=== PATIENT | male | born 1935 | race Caucasian/White ===

== ENCOUNTER 2022-01-25 12:18 | Observation (INO) | payer OTHER ==
--- OUTSIDE RECORDS SUMMARY | 2022-01-25 12:46 | XMS REPORT | Continuity of Care Document ---
:1935 Author Organization [facility] t Address [address] [place] [address] Care Team Providers Name Role Phone Chris Malloy MD, Gordy Primary Care Physician [phone] ZHAO MANCINI Attending Clinician Unavailable Payers Payer Name Policy Type Policy Number Effective Date Expiration Date S mario [employer] MEDICARE ADV [id number] 2018 00:00:00 MEDICARE PART A [id number] 2018 \T\ B 00:00:00 Problems Condition Condition Condition Status Onset Resolution Last Treating Co mments Source Name Details Category Date Date Treatment Clinician Date Follow-up Follow-up Disease Active Met hodi exam exam 07-25 00:00: Hospita 00 l Essential Essential Disease Active Met hodi hypertensi hypertensi 07-25 on on 00:00: Hospita 00 l 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 07-25 mellitus mellitus 00:00: Hospit a without without 00 l complicati complicati on on 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 07-25 emia emia 00:00: Hospita 00 l Acquired Acquired Disease Active Metho di hypothyroi hypothyroi 07-25 dism dism 00:00: Hospita 00 l 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, disease, - [facility]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 [facility] Benign Benign Problem Active Common hypertensi hypertensi Sp devorah on on - [facility] Hypothyroi Hypothyroi Problem Active C ommon dism dism Spirit - [facility] 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 - [facility] Obstructiv Obstructiv Problem Active C ommon e sleep e sleep Spirit apnea apnea - [facility] 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 - [facility] with other with other St specified specified Luke s complicati complicati Me dical on on Center 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 - [facility] with with St diarrhea diarrhea [facility] Medicare Medicare Diagnosis Active Com mon annual annual Spirit wellness wellness - [facility] visit, visit, St subsequent [facility] Allergies, Adverse Reactions, Alerts Allergy Allergy Status Severity Reaction(s) Onset Inactive Treating Comm ents Source Name Type Date Date Clinician PENICILL Drug Active High ITCHING Univers INS Class 1-12 ity of 00[facility]: [place] [facility] Penicill Propensi Active Rash Method i ins ty to 12 st adverse 00:00: Hospita reaction 00 l s to drug Family History Family Member Diagnosis Comments Start Date Stop Date Source Natural father Diabetes [facility] Natural father Lung cancer [facility] mother Heart attack [facility] Social History Social Habit Start Date Stop Date Quantity Comments Source Alcohol intake 2016-12-25 2016-12-25 Current [facility] 00:00:00 00:00:00 non-drinker of Hospital alcohol (finding) Cigarettes smoked 2016-07-13 2016-07-13 [facility] current (pack per 00:00:00 00:00:00 Hospita l day) - Reported History of tobacco 1989-07-13 Current smoker Me [facility]odist use 00:00:00 [facility] Sex Assigned At [birth year] [facility] 00:00:00 00:00:00 Hospital Smoking Status Start Date Stop Date Source Ex-smoker 2016-07-13 00:00:00 2016-07-13 00:00:00 [facility] Medications Ordered Filled Start Stop Current Ordering Indication Dosage Frequency Signature Comments Components Source Medication Medication Date Date Medication? Clinician (SIG) Name Name Janaotddcristian Janasomra Yes Goldy 1 tablet Common 09-27 Marlon at bedtime Spirit 00:00: as needed - [facility] AMILoride 2016-03 Yes 5mg QD Take 5 mg Met hodi (MIDAMOR) 5 0-[address] MG tablet 11:03: daily. Hospit a 44 l furosemide Yes TAKE 1 Metho di (LASIX) 20 6-[address] mg tablet 00:00: MOUTH Hospita 00 EVERY DAY l NEEDED FOR EDEMA calcitriol Yes .25ug Q.5W Take 0.25 M ethodi (ROCALTROL) 4-[address] 0.25 MCG 13:34: mouth 2 Hospit a capsule 44 (two) l times a week. simvastatin Yes 20mg QD Take 20 mg Methodi (ZOCOR) 20 4-[address] MG tablet 13:34: nightly. Hosp laura 44 l omega-3 Yes 1g Q.5D Take 1 g Method i acid ethyl 4-[address] esters 13:34: (two) Hospita (LOVAZA) 1 44 times a l gram day. capsule aspirin Yes 81mg Q.5W Take 81 mg Meth shanta (ECOTRIN) 4-[address] 81 MG 13:34: (two) Hospita enteric 44 times a l coated week. tablet cyanocobala Yes 1000ug QD Take 1,000 Methodi min 1000 4-[address] MCG tablet 13:34: mouth Hospit a 44 daily. l vitamin E Yes 400U QD Take 400 Meth shanta 400 UNIT 4-[address] capsule 13:34: mouth Hospita 44 daily. l cholecalcif Yes QD Take by Met massiel rosenthal, 3-[address] vitamin D3, 00:00: daily. Hosp laura (VITAMIN 00 l D3) 5,000 unit capsule BUMETanide 2015-03 Yes 1mg QD Take 1 mg Me thodi (BUMEX) 1 2-[address] MG tablet 00:00: once Hospita 00 daily. l Namzaric Namzaric Yes Goldy 1 capsule Common Marlon in the [facility] evening [facility] Simvastatin Simvastatin Yes Goldy 1 tablet Common Marlon in the [facility] evening [facility] Fluticasone Fluticasone Yes Goldy 1 spray in Common Propionate Propionate Marlon each Sp devorah nostril - [facility] Indomethaci Indomethaci Yes Goldy TAKE ONE Common n n Marlon CAPSULE BY Spirit MOUTH - [facility] TWICE A [facility] PAIN WITH Center FOOD Trintellix Trintellix Yes Goldy 1 tablet Common Marlon [facility] Claritin-D Claritin-D Yes Goldy 1 tablet Common 12 Hour 12 Hour Marlon as needed [facility] rit - [facility] Levothyroxi Levothyroxi Yes Goldy 1 tablet Common ne Sodium ne Sodium Marlon on an Spi rit empty - CHI stomach in [facility] Vitamin D3 Vitamin D3 Yes Goldy 1 capsule Common Marlon [facility] Melatonin Melatonin Yes Goldy 1 tablet Common Marlon at bedtime [facility] as needed - CHI with food [facility] Aspirin Aspirin Yes Goldy 1 tablet Com mon Adult Low Adult Low Marlon Spir it Dose Dose - [facility] Bumetanide Bumetanide Yes Goldy not C ommon Marlon defined [facility] [place] 3 Yes Goldy 1 capsule Co mmon Marlon [facility] Lopressor Lopressor Yes Goldy 1 tablet Common Marlon with food [facility] Donepezil Donepezil Yes Goldy 1 tablet Common HCl HCl Marlon at bedtime [facility] Pioglitazon Pioglitazon Yes Goldy 1 tablet Common e HCl e HCl Marlon [facility] Calcitriol Calcitriol Yes Goldy TAKE ONE Common Marlon CAPSULE BY Spirit MOUTH - CHI EVERY DAY [facility] Vitamin E Vitamin E Yes Goldy 1 tablet Common Marlon [facility] coracedin coracedin Yes Goldy not Com mon hpb hpb Marlon defined [facility] Liothyronin Liothyronin Yes Goldy 1/2 tablet Common e Sodium e Sodium Marlon on an Spiri t empty - [facility]I stomach [facility] Flonase Flonase Yes Goldy 1 spray in C ommon Marlon each [facility] nostril - [facility] Vitamin Vitamin Yes Goldy 1 tablet Com mon B-12 B-12 Marlon [facility] Procedures This patient has no known procedures. Plan of Care Planned Activity Planned Date Details Comments Source Future Scheduled 2021-11-23 HEPATITIS B VACCINES Met [facility] Test 13:52:40 (1 of 3 - 3-dose series) [code = HEPATITIS B VACCINES (1 of 3 - 3-dose series)] Future Scheduled 2021-11-23 COVID-19 VACCINE (#1) [facility] Test 13:52:40 [code = COVID-19 VACCINE (#1)] Future Scheduled 2021-11-23 SHINGLES VACCINES (1 Met [facility] Test 13:52:40 of 2) [code = SHINGLES VACCINES (1 of 2)] Future Scheduled 2021-11-23 65+ PNEUMOCOCCAL Methodi [facility] Test 13:52:40 VACCINE (1 - PCV) [code = 65+ PNEUMOCOCCAL VACCINE (1 - PCV)] Future Scheduled 2021-11-23 INFLUENZA VACCINE Method [facility] Test 13:52:40 [code = INFLUENZA VACCINE] Encounters Start End Encounter Admission Attending Care Care Encounter Source Date/Time Date/Time Type Type Clinicians Facility Department ID 2019-12-28 2019-12-28 Outpatient Swetha MANCINI [facility] [id number] Univers 15:15:00 15:15:00 ZHAO [facility] 2018-11-25 2018-11-25 Outpatient Fabian Peraltat [id number] Common 15:15:00 15:15:00 [facility] 2018-05-26 2018-05-26 [facility] [id number] Common 10:00:00 10:00:00 [facility] 2018-03-27 2018-03-27 [facility] [id number] Common 10:00:00 10:00:00 [facility] 2017-12-24 2017-12-24 [facility] [id number] Common 10:15:00 10:15:00 [facility] 2017-11-26 2017-11-26 [facility] [id number] Common 16:07:00 16:07:[address] [facility] 2017-09-27 2017-09-27 [facility] [id number] Common 15:03:00 15:03:[address] [facility] 2017-09-27 2017-09-27 [facility] [id number] Common 12:09:00 12:09:[address] [facility] 2017-09-23 2017-09-23 [facility] [id number] Common 10:30:00 10:30:[address] [facility] 2017-08-14 2017-08-14 [facility] [id number] Common 13:15:00 13:15:[address] [facility] Results This patient has no known results.
--- NOTE | 2022-01-25 13:54 | RAD REPORT ---
EXAM DESCRIPTION: CT - Head C Spine Cap Wo Con - 01/25/2022 1:36 pm CLINICAL HISTORY: Trauma, head and neck injury. Chest, abdomen and pelvis pain. fall COMPARISON: No comparisons TECHNIQUE: CT head without contrast. CT cervical spine without contrast with coronal and sagittal reformatted images. CT chest, abdomen and pelvis without contrast with coronal and sagittal reformatted images of the [facility] ne. All CT scans are performed using dose optimization technique as appropriate and may include automated exposure control or mA/KV adjustment according to patient size. FINDINGS: CT HEAD WITHOUT CONTRAST: No intracranial hemorrhage, hydrocephalus or extra-axial fluid collection. Moderate generalized brain atrophy. No areas of brain edema or midline shift. The paranasal sinuses and mastoids are clear. The calvarium is intact. CT CERVICAL SPINE WITHOUT CONTRAST: No fracture or subluxation. Fusion of C6 and [address] noted. The prevertebral soft ti ssues are normal in thickness. CT CHEST, ABDOMEN, PELVIS WITHOUT CONTRAST: NOTE: Lack of contrast is a significant limitation in the assessment of trauma related findings. Spec ifically, solid organ, vascular and bowel evaluation is significantly limited. Mildly emphysematous lung kwon.No pneumothorax or pericardial/pleural fluid. No evidence of intra-abdominal visceral injury, free fluid or free air is seen within the above detai led limitations. Cholecystectomy. No concerning pelvic findings. No fractures. Moderate lumbar degenerative changes. IMPRESSION: Negative for acute traumatic findings within the above detailed limitations.
--- NOTE | 2022-01-25 14:19 | RAD REPORT ---
EXAM DESCRIPTION: RAD - Chest Single View - 01/25/2022 2:12 pm CLINICAL HISTORY: COUGH Chest pain. COMPARISON: Chest Single View dated 08/30/2016; CHEST PA AND LAT 2 VIEW dated 04/20/2010; CHEST PA AND LAT 2 VIEW dated 10/08/2002; Head C Spine Cap Wo Con dated 01/25/2022 FINDINGS: Portable technique limits examination quality. The lungs are emphysematous but grossly clear. The heart is normal in size. No displaced fractures. IMPRESSION: No acute intrathoracic process suspected.
[2022-01-25 14:25] LABS: Absolute Lymphocytes (CBC) 1.8 K/uL (0.7-4.9); Hematocrit 31.7 % (39.6-49.0); Lymphocytes % 21.3 % (15.3-44.8); MCV 89.4 fL (80-100); MPV 7.6 fL (7.6-11.3); RBC Red Blood Cell Count 3.54 M/uL (4.33-5.43)
[2022-01-25 14:29] LABS: Protime INR 1.09
[2022-01-25] MEDS ORDERED: METRONIDAZOLE 500mg IVPB 500 MG/100 ML BAG IV ONE (14:38)
[2022-01-25] MEDS ORDERED: CIPROFLOXACIN 400mg IV 400 MG/200 ML BAG IV ONE (14:38)
[2022-01-25] MEDS ORDERED: NA CHLORIDE 0.9% 1,000 ML ONE (14:38)
[2022-01-25 14:42] LABS: SARS-CoV-2 Antigen Rapid Res Negative (Negative)
[2022-01-25 14:47] LABS: Albumin 3.1 g/dL (3.4-5.0); Bilirubin Direct 0.2 mg/dL (0-0.2); Bilirubin Total 0.6 mg/dL (0.2-1.0); Magnesium 1.6 mg/dL (1.8-2.4); Potassium 4.4 mmol/L (3.5-5.1); Protein, Total 6.7 g/dL (6.4-8.2)
[2022-01-25 14:50] LABS: Troponin High Sensitivity 79.3 pg/mL (<58.9)
--- NOTE | 2022-01-25 15:02 | ER ---
Nurse's Notes [facility] Name: Wayne Arredondo Age: 86 yrs Sex: Male : 1935 Arrival Date: 01/25/2022 Time: 12:20 Bed 20 Private MD: Gordy Perez E Diagnosis: Weakness;Anemia, unspecified;GI Bleed/ Gastrointestinal hemorrhage, unspecified-lower, stable;Hypomagnesemia;Abnormal serum enzyme level, unspecified-elevated troponin Presentation: 01/25 12:32 Chief complaint: Patient states: bloody stools x1 month, treated by doctor for GI Bleed 5 and it's not helping. Pt is confused, falling a lot, anemic. Coronavirus screen: Vaccine status: Patient reports receiving the 2nd dose of the covid vaccine. Client denies travel out of the [place] in the last 14 days. Ebola Screen: Patient negative for fever greater than or equal to 101.5 degrees Fahrenheit, and additional compatible Ebola Virus Disease symptoms Patient denies exposure to infectious person. Patient denies travel to an Ebola-affected area in the 21 days before illness onset. Initial Sepsis Screen: Does the patient meet any 2 criteria? No. Patient's initial sepsis screen is negative. Does the patient have a suspected source of infection? No. Patient's initial sepsis screen is negative. Risk Assessment: Do you want to hurt yourself or someone else? Patient reports no desire to harm self or others. Onset of symptoms was November 2021. 12:32 Method Of Arrival: Wheelchair [facility] 12:32 Acuity: JON 2 5 Triage Assessment: 12:35 General: Appears in no apparent distress. uncomfortable, slender, well groomed, [facility] Behavior is calm, cooperative, appropriate for age. Pain: Denies pain. GI: Reports diarrhea, bloody stool. Historical: - Allergies: 12:35 PENICILLINS; jh5 - PMHx: 12:35 Alzheimer's disease; Diabetes mellitus; Hypertensive disorder; thyroid disease; jh5 - Immunization history:: Adult Immunizations up to date. - Social history:: Smoking status: Patient denies any tobacco usage or history of. Screenin:01 Abuse screen: Denies threats or abuse. Nutritional screening: No deficits noted. tw2 Tuberculosis screening: No symptoms or risk factors identified. Fall Risk Secondary diagnosis (15 points) Alzheimer's, impaired mobility. Assessment: 14:08 Reassessment: Dr. Stephens at bedside at this time. tw2 16:30 Reassessment: Patient appears in no apparent distress at this time. No changes from tw2 previously documented assessment. Patient and/or family updated on plan of care and expected duration. Pain level reassessed. Patient is alert, oriented x 3, equal unlabored respirations, skin warm/dry/pink. 16:36 Reassessment: PTS Medical Caregiver Chantale suarez#[phone]. tw2 17:40 Reassessment: hospitalist Dr. Flower at bedside at this time. tw2 17:41 Reassessment: Patient appears in no apparent distress at this time. No changes from tw2 previously documented assessment. Patient and/or family updated on plan of care and expected duration. Pain level reassessed. Patient is alert, oriented x 3, equal unlabored respirations, skin warm/dry/pink. 18:11 Reassessment: pt given 10 mg Melatonin PO per Dr. Flower. unable to chart in [employer]. tw2 nursing note made. 20:18 Reassessment: report called to Mariana GILLESPIE for room 431. Vital Signs: 12:32 Pulse 103; Resp 18; Temp 98.6; Pulse Ox 100% ; Weight 64.41 kg; Height 5 ft. 9 in. [facility] (175.26 cm); 14:32 BP 158 / 69; Pulse 50; Resp 17; Pulse Ox 100% on R/A; tw2 15:30 BP 164 / 71; Pulse 56; Resp 17; Pulse Ox 100% on R/A; tw2 16:15 BP 171 / 61; Pulse 56; Resp 17; Pulse Ox 99% on R/A; tw2 17:41 BP 153 / 64; Pulse 57; Resp 17; Pulse Ox 100% on R/A; tw2 12:32 Body Mass Index 20.97 (64.41 kg, 175.26 cm) [facility] ED Course: 12:20 Patient arrived in ED. mr 12:21 Gordy Perez MD is Private Physician. mr 12:35 Triage completed. [facility] 12:35 Arm band placed on right wrist. [facility] 12:38 Bed in low position. Call light in reach. Side rails up X2. Adult w/ patient. tw2 12:47 Phillip Stephens MD is Attending Physician. zeina 13:29 Millicent Vasquez, RN is Primary Nurse. tw2 13:38 CT Traumagram (Head C Spine CAP wo con) In Process Unspecified. EDMS 14:14 XRAY Chest (1 view) In Process Unspecified. EDMS 14:20 Inserted saline lock: 22 gauge in left forearm, using aseptic technique. Blood jd3 collected. 15:00 Anayeli Flower MD is Hospitalizing Provider. zeina 21:12 No provider procedures requiring assistance completed. Patient admitted, IV remains in ha1 place. Administered Medications: 14:48 Drug: Flagyl (metroNIDAZOLE) 500 mg Volume: 100 ml; Route: IVPB; Rate: 200 ml/hr; tw2 Infused Over: 30 mins; Site: right antecubital; 15:20 Follow up: Response: No adverse reaction; IV Status: Completed infusion; IV Intake: tw2 100ml 14:48 Drug: NS 0.9% 1000 ml Route: IV; Rate: 125 ml/hr; Site: right antecubital; tw2 15:50 Drug: Cipro (ciprofloxacin) 400 mg Volume: 200 ml; Route: IVPB; Infused Over: 60 mins; tw2 Site: right antecubital; 17:01 Follow up: Response: No adverse reaction; IV Status: Completed infusion; IV Intake: tw2 200ml 16:53 Drug: Magnesium Sulfate 1 grams Route: IVPB; Infused Over: 1 hrs; Site: right tw2 antecubital; 17:53 Follow up: IV Status: Completed infusion; IV Intake: 100ml tw2 Medication: 14:01 VIS not applicable for this client. tw2 Intake: 15:20 IV: 100ml; Total: 100ml. tw2 17:01 IV: 200ml; Total: 300ml. tw2 17:53 IV: 100ml; Total: 400ml. tw2 Outcome: 15:02 Decision to Hospitalize by Provider. zeina 21:12 Admitted to Med/surg accompanied by tech, family with patient, via wheelchair, room 431.ha1 21:12 Discharge instructions given to patient, family, Instructed on the need for admit, Demonstrated understanding of instructions. 21:13 Condition: stable ha1 21:14 Patient left the ED. ha1 Signatures: Dispatcher [employer] EDPhillip Teresa MD MD cha Rivera Balbina mr Tyson, Luiza, RN RN bb Millicent Vasquez, RN RN tw2 Collin Laureano, RN RN jd3 Erika Everett, RN RN jh5 Savannah Torres, RN RN ha1
--- NOTE | 2022-01-25 15:02 | EDPHYS ---
Physician Documentation [facility] Name: Wayne Arredondo Age: 86 yrs Sex: Male : 1935 Arrival Date: 01/25/2022 Time: 12:20 Bed 20 Private MD: Gordy Perez E ED Physician Phillip Stephens HPI: 01/25 14:11 This 86 yrs old Male presents to ER via Wheelchair with complaints of zeina Confusion, Bloody Stools, Fall Injury. 14:11 Details of fall: The patient fell from an upright position, while standing. Onset: The zeina symptoms/episode began/occurred 1 day(s) ago. Associated injuries: The patient sustained no obvious injury. Historical: - Allergies: 12:35 PENICILLINS; jh5 - PMHx: 12:35 Alzheimer's disease; Diabetes mellitus; Hypertensive disorder; thyroid disease; jh5 - Immunization history:: Adult Immunizations up to date. - Social history:: Smoking status: Patient denies any tobacco usage or history of. ROS: 14:12 Constitutional: Negative for fever, chills, and weight loss, Eyes: Negative for injury, zeina pain, redness, and discharge, ENT: Negative for injury, pain, and discharge, Neck: Negative for injury, pain, and swelling, Cardiovascular: Negative for chest pain, palpitations, and edema, Respiratory: Negative for shortness of breath, cough, wheezing, and pleuritic chest pain, Back: Negative for injury and pain, : Negative for injury, bleeding, discharge, and swelling, MS/Extremity: Negative for injury and deformity, Skin: Negative for injury, rash, and discoloration, Neuro: Negative for headache, weakness, numbness, tingling, and seizure, Psych: Negative for depression, anxiety, suicide ideation, homicidal ideation, and hallucinations, Allergy/Immunology: Negative for hives, rash, and allergies, Endocrine: Negative for neck swelling, polydipsia, polyuria, polyphagia, and marked weight changes, Hematologic/Lymphatic: Negative for swollen nodes, abnormal bleeding, and unusual bruising. 14:12 Abdomen/GI: Positive for rectal bleeding. Exam: 14:12 Constitutional: This is a well developed, well nourished patient who is awake, alert, zeina and in no acute distress. Head/Face: Normocephalic, atraumatic. Eyes: Pupils equal round and reactive to light, extra-ocular motions intact. Lids and lashes normal. Conjunctiva and sclera are non-icteric and not injected. Cornea within normal limits. Periorbital areas with no swelling, redness, or edema. ENT: Nares patent. No nasal discharge, no septal abnormalities noted. Tympanic membranes are normal and external auditory canals are clear. Oropharynx with no redness, swelling, or masses, exudates, or evidence of obstruction, uvula midline. Mucous membranes moist. Neck: Trachea midline, no thyromegaly or masses palpated, and no cervical lymphadenopathy. Supple, full range of motion without nuchal rigidity, or vertebral point tenderness. No Meningismus. Chest/axilla: Normal chest wall appearance and motion. Nontender with no deformity. No lesions are appreciated. Cardiovascular: Regular rate and rhythm with a normal S1 and S2. No gallops, murmurs, or rubs. Normal PMI, no JVD. No pulse deficits. Respiratory: Lungs have equal breath sounds bilaterally, clear to auscultation and percussion. No rales, rhonchi or wheezes noted. No increased work of breathing, no retractions or nasal flaring. Abdomen/GI: Soft, non-tender, with normal bowel sounds. No distension or tympany. No guarding or rebound. No evidence of tenderness throughout. Back: No spinal tenderness. No costovertebral tenderness. Full range of motion. Male : Normal genitalia with no discharge or lesions. MS/ Extremity: Pulses equal, no cyanosis. Neurovascular intact. Full, normal range of motion. Neuro: Awake and alert, GCS 15, oriented to person, place, time, and situation. Cranial nerves II-XII grossly intact. Motor strength 5/5 in all extremities. Sensory grossly intact. Cerebellar exam normal. Normal gait. Psych: Awake, alert, with orientation to person, place and time. Behavior, mood, and affect are within normal limits. 14:12 Abdomen/GI: Inspection: abdomen appears normal, Bowel sounds: normal, in all quadrants, Palpation: abdomen is soft and non-tender, Rectal exam: is unremarkable, Prostate: normal, rectal tone normal, Stool: normal, hemorrhoid(s), are not appreciated, mass, is not appreciated, swelling, is not appreciated, tenderness, is not appreciated, Liver: no appreciated palpable abnormalities, Hernia: not appreciated. 14:12 Skin: Appearance: Color: pale. 14:59 ECG was reviewed by the Attending Physician. [facility] Vital Signs: 12:32 Pulse 103; Resp 18; Temp 98.6; Pulse Ox 100% ; Weight 64.41 kg; Height 5 ft. 9 in. 5 (175.26 cm); 14:32 BP 158 / 69; Pulse 50; Resp 17; Pulse Ox 100% on R/A; tw2 15:30 BP 164 / 71; Pulse 56; Resp 17; Pulse Ox 100% on R/A; tw2 16:15 BP 171 / 61; Pulse 56; Resp 17; Pulse Ox 99% on R/A; tw2 17:41 BP 153 / 64; Pulse 57; Resp 17; Pulse Ox 100% on R/A; tw2 12:32 Body Mass Index 20.97 (64.41 kg, 175.26 cm) 5 MDM: 12:47 Patient medically screened. [facility] 14:15 Differential diagnosis: diverticulitis, hemorrhoids, varices. Differential diagnosis: zeina abrasion, closed head injury, contusion, fracture, multiple trauma, sprain, strain. Data reviewed: vital signs, nurses notes, lab test result(s), EKG, radiologic studies, CT scan. 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 Test interpretation: by ED physician or midlevel provider: ECG, plain radiologic studies. Counseling: I had a detailed discussion with the patient and/or guardian regarding: the historical points, exam findings, and any diagnostic results supporting the discharge/admit diagnosis, lab results, radiology results. 01/25 12:57 Order name: Basic Metabolic Panel; Complete Time: 14:58 [facility] 01/25 12:57 Order name: CBC with Diff; Complete Time: 14:58 [facility] 01/25 12:57 Order name: LFT's; Complete Time: 14:58 [facility] 01/25 12:57 Order name: Magnesium; Complete Time: 14:58 [facility] 01/25 12:57 Order name: NT PRO-BNP; Complete Time: 14:58 [facility] 01/25 12:57 Order name: PT-INR; Complete Time: 14:58 [facility] 01/25 12:57 Order name: Troponin HS; Complete Time: 14:58 [facility] 01/25 12:57 Order name: Lipase; Complete Time: 14:58 [facility] 01/25 13:12 Order name: Urine Microscopic Only [facility] 01/25 13:12 Order name: Type And Screen [facility] 01/25 13:13 Order name: SARS RAPID; Complete Time: 14:58 [facility] 01/25 17:15 Order name: Urine Dipstick-Ancillary EDMS 01/25 17:41 Order name: CBC with Automated Diff EDMS 01/25 18:03 Order name: CBC with Automated Diff EDMS 01/25 12:57 Order name: XRAY Chest (1 view); Complete Time: 14:58 [facility] 01/25 12:57 Order name: EKG; Complete Time: 12:58 [facility] 01/25 13:12 Order name: CT Traumagram (Head C Spine CAP wo con); Complete Time: 14:11 [facility] 01/25 18:03 Order name: Heart Healthy EDMS 01/25 18:03 Order name: EKG Electrocardiogram EDMS 01/25 18:03 Order name: EKG Electrocardiogram EDMS 01/25 18:03 Order name: CBC with Automated Diff EDMS 01/25 18:03 Order name: Protime (+INR) EDMS 01/25 18:03 Order name: Protime (+INR) EDMS 01/25 18:03 Order name: PTT, Activated Partial Thromb EDMS 01/25 18:03 Order name: PTT, Activated Partial Thromb EDMS 01/25 20:06 Order name: ABO/RH no charge EDMS 01/25 12:57 Order name: Cardiac monitoring; Complete Time: 14:20 [facility] 01/25 12:57 Order name: EKG - Nurse/Tech; Complete Time: 14:32 [facility] 01/25 12:57 Order name: IV Saline Lock; Complete Time: 14:20 [facility] 01/25 12:57 Order name: Labs collected and sent; Complete Time: 14:20 [facility] 01/25 12:57 Order name: O2 Per Protocol; Complete Time: 14:20 [facility] 01/25 12:57 Order name: O2 Sat Monitoring; Complete Time: 14:20 [facility] 01/25 13:12 Order name: Urine Dipstick-Ancillary (obtain specimen); Complete Time: 17:17 [facility] 01/25 18:03 Order name: EKG Electrocardiogram EDMS 01/25 18:03 Order name: EKG Electrocardiogram EDMS 01/25 18:03 Order name: EKG Electrocardiogram EDMS 01/25 18:03 Order name: EKG Electrocardiogram EDMS 01/25 18:03 Order name: EKG Electrocardiogram EDMS 01/25 18:03 Order name: EKG Electrocardiogram EDMS 01/25 18:03 Order name: EKG Electrocardiogram EDMS 01/25 18:03 Order name: EKG Electrocardiogram EDMS 01/25 18:03 Order name: EKG Electrocardiogram EDMS EC:59 Rate is 54 beats/min. Rhythm is regular. QRS [place] is Normal. [place] interval is normal. QRS zeina interval is normal. QT interval is normal. No Q waves. T waves are Normal. No ST changes noted. Clinical impression: Sinus bradycardia. Interpreted by me. Reviewed by me. Administered Medications: 14:48 Drug: Flagyl (metroNIDAZOLE) 500 mg Volume: 100 ml; Route: IVPB; Rate: 200 ml/hr; tw2 Infused Over: 30 mins; Site: right antecubital; 15:20 Follow up: Response: No adverse reaction; IV Status: Completed infusion; IV Intake: tw2 100ml 14:48 Drug: NS 0.9% 1000 ml Route: IV; Rate: 125 ml/hr; Site: right antecubital; tw2 15:50 Drug: Cipro (ciprofloxacin) 400 mg Volume: 200 ml; Route: IVPB; Infused Over: 60 mins; tw2 Site: right antecubital; 17:01 Follow up: Response: No adverse reaction; IV Status: Completed infusion; IV Intake: tw2 200ml 16:53 Drug: Magnesium Sulfate 1 grams Route: IVPB; Infused Over: 1 hrs; Site: right tw2 antecubital; 17:53 Follow up: IV Status: Completed infusion; IV Intake: 100ml tw2 Disposition Summary: 01/25/22 15:02 Hospitalization Ordered Hospitalization Status: Observation zeina Provider: Anayeli Flower cha Location: Telemetry/MedSurg (observation) zeina Condition: Fair zeina Problem: new zeina Symptoms: have improved zeina Bed/Room Type: Standard zeina Room Assignment: 431(01/25/22 18:28) eb Diagnosis - Weakness zeina - Anemia, unspecified zeina - GI Bleed/ Gastrointestinal hemorrhage, unspecified - lower, stable zeina - Hypomagnesemia zeina - Abnormal serum enzyme level, unspecified - elevated troponin zeina Forms: - Medication Reconciliation Form zeina - SBAR form zeina Signatures: Dispatcher [employer] Phillip Das MD MD cha Wise, Tara RN RN tw2 Maura Laureano Jessica, RN RN jh5 Corrections: (The following items were deleted from the chart) 18:28 15:02 zeina noel
[2022-01-25] MEDS ORDERED: MAGNESIUM SULFATE 1 gm IVPB 1 GM/100 ML BAG IV ONE (16:44)
[2022-01-25 17:15] LABS: Urine Blood Negative (Negative); Urine Glucose Negative (Negative); Urine Protein Negative (Negative); Urine pH 5.5 (5.0-7.0)
[2022-01-25] MEDS ORDERED: ONDANSETRON 4 MG/2 ML VIAL IV PRN (17:59)
[2022-01-25] MEDS ORDERED: MORPHINE 2 MG/ML SYR IV PRN (17:59)
[2022-01-25] MEDS ORDERED: ACETAMINOPHEN 500 MG TAB PO PRN (17:59)
--- NOTE | 2022-01-25 17:59 | P.HP ---
Certification for Inpatient Patient admitted to: Observation With expected LOS: <2 Midnights Patient will require the following post-hospital care: None Practitioner: I am a practitioner with admitting privileges, knowledge of patient current condition, hospital course, and medical plan of care. Services: Services provided to patient in accordance with Admission requirements found in Title 42 Section 412.3 of the Code of Federal Regulations Patient History Date of Service: 01/25/22 Reason for admission: GI bleeding History of Present Illness: Patient is an 86-year-old gentleman with advanced Alzheimer's dementia who comes into the emergency room with lower GI bleeding. Patient apparently has been at home and he had some blood in his stools. His family also states he has been having quite a bit of diarrhea. He just has not been himself and they were concerned with the bleeding so they wanted him observed. Patient's CODE STATUS is DNR. Family does not want any surgical procedures at this time. They wanted to make sure he was in bleeding out so they could observe him. We will watch him overnight and anticipate discharge home in the morning. Otherwise, patient has prior history of renal insufficiency which has improved. Patient also has a history of hypothyroidism. He does have some sundowning and they use melatonin to help with this. We will give him a dose of melatonin at this point. Patient will be admitted for observation. Allergies Penicillins Allergy (Verified 08/29/16 14:21) Itching/Hives/Rash Home Medications: Amiloride HCl 5 mg PO DAILY 08/29/16 Aspirin [Aspir-Low] 81 mg PO BID 08/29/16 Bumetanide [Bumex*] 1 mg PO DAILY 08/29/16 Cholecalciferol (Vitamin D3) [Vitamin D3] 1 cap PO DAILY 08/29/16 Cyanocobalamin [Vitamin B-12*] 2,500 mg PO DAILY 08/29/16 Levothyroxine Sodium [Synthroid] 1 tab PO DAILY 08/29/16 Metoprolol Tartrate [Lopressor*] 50 mg PO DAILY 08/29/16 [place]-3 Fatty Acids [[place]-3] 1 cap PO DAILY 08/29/16 Simvastatin [Zocor*] 20 mg PO BEDTIME 08/29/16 Vitamin E 1 cap PO DAILY 08/29/16 Calcitrol [Rocaltrol*] 0.25 mcg PO DAILY #90 cap 09/01/16 - Past Medical/Surgical History Diabetic: Yes -: Asbestosis -: HTN -: Hypothroidism -: HLD -: NIDDM -: Cataract surgery Bilaterally -: Choley -: Tonsillectomy -: Neck Sx with titanium plate in C-spine -: Right Knee sx -: Heel Spur removal -: Rotator Cuff repair of R shoulder - Family History Father Family History: Reviewed- Non-Contributory - Social History Smoking Status: Former smoker Alcohol use: No CD- Drugs: No Caffeine use: Yes Review of Systems is unable to be obtained Physical Examination - Vital Signs Temperature: 98 F Blood Pressure: 140/80 Pulse: 80 Respirations: 18 Pulse Ox (%): 95 - Physical Exam General: Alert, Demented HEENT: Atraumatic, Normocephalic Neck: Supple Respiratory: Clear to auscultation bilaterally, Normal air movement Cardiovascular: Regular rate/rhythm, Normal S1 S2 Gastrointestinal: Normal bowel sounds, Soft and benign, Non-distended Musculoskeletal: No clubbing, No swelling Integumentary: No rashes Neurological: Normal strength at 5/5 x4 extr, Sensation intact, Cranial nerves 3-12 intact - Studies Laboratory Data (last 24 hrs) 01/25/22 14:14: PT 12.0, INR 1.09 01/25/22 14:14: WBC 8.50, Hgb 10.6 L, Hct 31.7 L, Plt Count 286 01/25/22 14:14: Sodium 138, Potassium 4.4, BUN 32 H, Creatinine 1.24, Glucose 100, Magnesium 1.6 L, Total Bilirubin 0.6, AST 12 L, ALT 12, Alkaline Phosphatase 49, Lipase 36 L Assessment & Plan - Problems (Diagnosis) (1) Lower GI bleed Current Visit: Yes Status: Acute (2) Alzheimer's dementia Current Visit: Yes Status: Acute (3) HTN (hypertension) Onset Date: 08/30/16 Current Visit: No Status: Acute (4) Hypothyroid Onset Date: 08/30/16 Current Visit: No Status: Acute Qualifiers: - Plan Plan: 1. Continue with IV hydration and PPI 2. Continue with IV antibiotics 3. Continue with pain control 4. Full liquid diet 5. Hold off GI consultation as no intervention 6. Serial H&H, and we will monitor LFTs and lipase along with electrolytes. 7. GI and DVT prophylaxis Discharge Plan: Home Plan to discharge in: 24 Hours - Advance Directives Does patient have a Living Will: Yes Does patient have a Durable POA for Healthcare: Yes - Code Status/Comfort Care Code Status Assessed: Yes Code Status: Do Not Attempt Resuscitat Critical Care: No Time Spent Managing PTS Care (In Minutes): 45
[2022-01-25] MEDS ORDERED: NA CHLORIDE 0.9% 1,000 ML IV SCH (18:00)
[2022-01-25] MEDS ORDERED: NA CHLORIDE 0.9% 250 ML IV SCH (18:00)
[2022-01-25] MEDS ORDERED: MELATONIN 5 MG TABLET PO PRN (18:01)
[2022-01-25] MEDS: CEFDINIR 300 MG CAP PO SCH ×2 (20:00→21:30)
[2022-01-25 20:48] LABS: Hematocrit 29.4 % (39.6-49.0); Lymphocytes % 20.8 % (15.3-44.8); MCV 89.2 fL (80-100); MPV 7.9 fL (7.6-11.3)
[2022-01-25] MEDS ORDERED: QUETIAPINE 25 MG TAB PO SCH (21:00)
[2022-01-25] MEDS: PANTOPRAZOLE 40 MG INJ IVP SCH (21:29)
[2022-01-25 21:58] VITALS: O2SAT 100
[2022-01-25 23:16] VITALS: BMI 21.1
[2022-01-25] MEDS ORDERED: ZIPRASIDONE MESYLA 20 MG/VIAL IM ONE (23:26)
[2022-01-25] MEDS ORDERED: WATER FOR INJ,STERILE 10 ML IM PRN (23:26)
[2022-01-25] MEDS ORDERED: LORazepam 2 MG/ML VIAL IV ONE (23:35)
[2022-01-25] MEDS ORDERED: LORazepam 2 MG/ML VIAL ONE (23:38)
[2022-01-26] MEDS: METRONIDAZOLE 500mg IVPB 500 MG/100 ML BAG IV SCH ×2 (00:48→08:43)
[2022-01-26] MEDS ORDERED: HALOPERIDOL LACT 5 MG/ML INJ IV PRN (03:07)
[2022-01-26 05:51] LABS: Absolute Lymphocytes (CBC) 2.1 K/uL (0.7-4.9); Hematocrit 27.8 % (39.6-49.0); MCV 88.8 fL (80-100); MPV 7.6 fL (7.6-11.3); RBC Red Blood Cell Count 3.13 M/uL (4.33-5.43)
[2022-01-26 06:11] LABS: Protime INR 1.1
[2022-01-26 06:18] LABS: RBC Red Blood Cell Count 3.19 M/uL (4.33-5.43)
[2022-01-26 06:32] LABS: Folic Acid, (Folate) 10.2 ng/mL (3.1-17.5); Magnesium 1.9 mg/dL (1.8-2.4); Potassium 4.2 mmol/L (3.5-5.1)
[2022-01-26] MEDS ORDERED: INFLUENZA VACCINE (for 6+ mo) 0.5 ML DOSE IMVAC ONE (08:00)
[2022-01-26] MEDS: PANTOPRAZOLE 40 MG INJ IVP SCH (08:44)
[2022-01-26] MEDS: CEFDINIR 300 MG CAP PO SCH (09:00)
[2022-01-26] MEDS ORDERED: CYANOCOBALAMIN 1000MCG/ML INJ IM ONE (13:37)
[2022-01-26 16:27] VITALS: BP 168/58; TEMP 96.8
== END 2022-01-26 16:52 | disposition home or self-care (01) ==
LOC: ER 12:18 → ERHOLD 18:00 → 4TH 20:21
PROVIDERS: ADMIT Hospitalist; ATTEND Hospitalist
DX: K92.2 Gastrointestinal hemorrhage, unspecified (principal); G30.9 Alzheimer's disease, unspecified; F02.80 Dementia in other diseases classified elsewhere, unspecified severity, without behavioral disturbance, psychotic disturbance, mood disturbance, and anxiety; I10 Essential (primary) hypertension; E03.9 Hypothyroidism, unspecified; E11.9 Type 2 diabetes mellitus without complications; F05 Delirium due to known physiological condition; Z87.891 Personal history of nicotine dependence; Z20.822 Contact with and (suspected) exposure to COVID-19; Z88.0 Allergy status to penicillin
CPT/HCPCS: 96365; 96367; 96368; 85025 ×3; 80048 ×2; 36415; 86900; 83735 ×2; 86850; 85610 ×2; 85044; 86901; 82947 ×4; 80076; 85730; 81003; 84484; 82746; 82607; 83690; 83540; 83880; 70450; 71250; 72125; 71045; 99285; 96366; 87811; J1630; J3420; C9113 ×2; J3486; J3475; J7030 ×2; J0744; G0378

== ENCOUNTER 2022-09-07 07:13 | Inpatient (IN) | payer OTHER ==
--- OUTSIDE RECORDS SUMMARY | 2022-09-07 07:17 | XMS REPORT | Continuity of Care Document ---
:1935 Author Organization [facility] t Address [address] [facility] 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 [facility] Medicare Medicare Diagnosis Active Com [facility] annual annual Spirit wellness wellness - CHI visit, visit, [facility] 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, disease, - CHI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 [facility] Benign Benign Problem Active Common hypertensi hypertensi Sp devorah on on - [facility] Hypothyroi Hypothyroi Problem Active C ommon dism dism Spirit - [facility] 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 - [facility] Obstructiv Obstructiv Problem Active C ommon e sleep e sleep Spirit apnea apnea - [facility] 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 - [facility] with other with other St specified [facility] s complicati complicati Me dical on on Center Allergies, Adverse Reactions, Alerts Allergy Allergy Status Severity Reaction(s) Onset Inactive Treating Comm ents Source Name Type Date Date Clinician Penicill Propensi Active Rash Method i ins ty to 04-05 st adverse 00:00: Hospita reaction 00 l s to drug PENICILL Drug Active High ITCHING [facility] INS Class -12 ity of 00:00: [place] [facility] Family History Family Member Diagnosis Comments Start Date Stop Date Source Natural father Diabetes [facility] Natural father Lung cancer [facility] Natural mother Heart attack [facility] Social History Social Habit Start Date Stop Date Quantity Comments Source Gender identity [facility] Sexual orientation [facility] Alcohol intake 2016-12-25 2016-12-25 Current [facility] 00:00:00 00:00:00 non-drinker of Hospital alcohol (finding) History of Social 2016-09-05 2016-09-[address] function 00:00:00 00:00:00 Hospital Cigarettes smoked 2016-07-13 2016-07-13 [facility] current (pack per 00:00:00 00:00:00 Hospita l day) - Reported History of tobacco 1989-07-13 Cigarette Smoker [facility] use 00:00:00 Hospital Sex Assigned At [birth year] [facility] 00:00:00 00:00:00 Hospital Smoking Status Start Date Stop Date Source Ex-smoker 2016-07-13 00:00:00 2016-07-13 00:00:00 [facility] Medications Ordered Filled Start Stop Current Ordering Indication Dosage Frequency Signature Comments Components Source Medication Medication Date Date Medication? Clinician (SIG) Name Name Ketty Hdez Yes Goldy 1 tablet Common 09-27 Marlon at bedtime Spirit 00:00: as needed - [facility] 00 [facility] AMILoride 2016-03 Yes 5mg QD Take 5 mg Met hodi (MIDAMOR) 5 0-[address] MG tablet 11:03: daily. Hospit a 44 l AMILoride 2016-03 Yes 5mg QD Take 5 mg Met hodi (MIDAMOR) 5 0-[address] MG tablet 11:03: daily. Hospit a 44 l furosemide Yes TAKE 1 Metho di (LASIX) 20 6-[address] mg tablet 00:00: MOUTH Hospita 00 EVERY DAY l NEEDED FOR EDEMA furosemide Yes TAKE 1 Metho di (LASIX) 20 6-[address] mg tablet 00:00: MOUTH Hospita 00 EVERY DAY l NEEDED FOR EDEMA omega-3 Yes 1g Q.5D Take 1 g Method i acid ethyl 4-[address] esters 13:34: (two) Hospita (LOVAZA) 1 44 times a l gram day. capsule calcitriol Yes .25ug Q.5W Take 0.25 M ethodi (ROCALTROL) 4-[address] 0.25 MCG 13:34: mouth 2 Hospit a capsule 44 (two) l times a week. aspirin Yes 81mg Q.5W Take 81 mg Meth shanta (ECOTRIN) 4-[address] 81 MG 13:34: (two) Hospita enteric 44 times a l coated week. tablet simvastatin Yes 20mg QD Take 20 mg [...] capsule 13:34: mouth Hospita 44 daily. l cyanocobala Yes 1000ug QD Take 1,000 Methodi min 1000 4-[address] MCG tablet 13:34: mouth Hospit a 44 daily. l vitamin E Yes 400U QD Take 400 Meth shanta 400 UNIT 4-[address] capsule 13:34: mouth Hospita 44 daily. l calcitriol Yes .25ug Q.5W Take 0.25 M ethodi (ROCALTROL) 4-[address] 0.25 MCG 13:34: mouth 2 Hospit a capsule 44 (two) l times a week. simvastatin Yes 20mg QD Take 20 mg Methodi (ZOCOR) 20 4-[address] MG tablet 13:34: nightly. Hosp laura 44 l cholecalcif Yes QD Take by Met hodi ariadna, 3-[address] vitamin D3, 00:00: daily. Hosp laura (VITAMIN 00 l D3) 5,000 unit capsule cholecalcif Yes QD Take by Met hodi ariadna, 3-[address] vitamin D3, 00:00: daily. Hosp laura (VITAMIN 00 l D3) 5,000 unit capsule BUMETanide 2015-03 Yes 1mg QD Take 1 mg Me thodi (BUMEX) 1 2-[address] MG tablet 00:00: once Hospita 00 daily. l BUMETanide 2015-03 Yes 1mg QD Take 1 mg Me thodi (BUMEX) 1 2-[address] MG tablet 00:00: once Hospita 00 daily. l Namzaric Namzaric Yes Goldy 1 capsule Common Marlon in the [facility] evening - CHI [facility] Simvastatin Simvastatin Yes Goldy 1 tablet Common Marlon in the [facility] evening CHI [facility] Fluticasone Fluticasone Yes Goldy 1 spray in Common Propionate Propionate Marlon each Sp devorah nostril - CHI [facility] Indomethaci Indomethaci Yes Goldy TAKE ONE Common n n Marlon CAPSULE BY Spirit MOUTH - CHI TWICE A [facility] FOR Medical PAIN WITH Center FOOD Trintellix Trintellix Yes Goldy 1 tablet Common Marlon Spirit [facility] Claritin-D Claritin-D Yes Goldy 1 tablet Common 12 Hour 12 Hour Marlon as needed Spi rit [facility] Levothyroxi Levothyroxi Yes Goldy 1 tablet Common ne Sodium ne Sodium Marlon on an Spi rit empty - CHI stomach in [facility] Vitamin D3 Vitamin D3 Yes Goldy 1 capsule Common Marlon [facility] Melatonin Melatonin Yes Goldy 1 tablet Common Marlon at bedtime [facility] as needed - CHI with food [facility] Aspirin Aspirin Yes Goldy 1 tablet Com mon Adult Low Adult Low Marlon Spir it Dose Dose - CHI [facility] Bumetanide Bumetanide Yes Goldy not C ommon Marlon defined [facility] [place] 3 [place] 3 Yes Goldy 1 capsule Co mmon Marlon [facility] Lopressor Lopressor Yes Goldy 1 tablet Common Marlon with food [facility] Donepezil Donepezil Yes Goldy 1 tablet Common HCl HCl Marlon at bedtime [facility] Pioglitazon Pioglitazon Yes Goldy 1 tablet Common e HCl e HCl Marlon [facility] Calcitriol Calcitriol Yes Goldy TAKE ONE Common Marlon CAPSULE BY Spirit MOUTH - CHI EVERY DAY [facility] Vitamin E Vitamin E Yes Goldy 1 tablet Common Marlon [facility] coracedin coracedin Yes Goldy not Com mon hpb hpb Marlon defined [facility] Liothyronin Liothyronin Yes Goldy 1/2 tablet Common e Sodium e Sodium Marlon on an Spiri t empty - CHI stomach [facility] Flonase Flonase Yes Goldy 1 spray in C ommon Marlon each Spirit nostril [facility] Vitamin Vitamin Yes Goldy 1 tablet Com mon B-12 B-12 Marlon [facility] Procedures This patient has no known procedures. Plan of Care Planned Activity Planned Date Details Comments Source Future Scheduled 2022-09-06 COVID-19 VACCINE (#1) [facility] Test 21:04:57 [code = COVID-19 VACCINE (#1)] Future Scheduled 2022-09-06 SHINGLES VACCINES (1 Met [facility] Test 21:04:57 of 2) [code = SHINGLES VACCINES (1 of 2)] Future Scheduled 2022-09-06 65+ PNEUMOCOCCAL [facility] Test 21:04:57 VACCINE (1 - PCV) [code = 65+ PNEUMOCOCCAL VACCINE (1 - PCV)] Future Scheduled 2022-09-06 INFLUENZA VACCINE [facility] Test 21:04:57 [code = INFLUENZA VACCINE] Future Scheduled 2021-11-23 HEPATITIS B VACCINES Met [facility] Test 13:52:40 (1 of 3 - 3-dose series) [code = HEPATITIS B VACCINES (1 of 3 - 3-dose series)] Future Scheduled 2021-11-23 COVID-19 VACCINE (#1) [facility] Test 13:52:40 [code = COVID-19 VACCINE (#1)] Future Scheduled 2021-11-23 SHINGLES VACCINES (1 Met [facility] Test 13:52:40 of 2) [code = SHINGLES VACCINES (1 of 2)] Future Scheduled 2021-11-23 65+ P[facility]UMOCOCCAL [facility] Test 13:52:40 VACCINE (1 - PCV) [code = 65+ PNEUMOCOCCAL VACCINE (1 - PCV)] Future Scheduled 2021-11-[address] Method [facility] Test 13:52:40 [code = INFLUENZA VACCINE] Encounters Start End Encounter Admission Attending Care Care Encounter Source Date/Time Date/Time Type Type Clinicians Facility Department ID 2019-12-28 2019-12-28 Outpatient Swetha MANCINI [facility] [id number] Univers 15:15[facility] 2018-11-25 Outpatient Fabian Shook [id number] Common 15:15:00 15:15:00 [facility] 2018-05-26 2018-05-26 Outpatient Fabian Peraltat [id number] Common 10:00:00 10:00:00 [facility] 2018-03-27 2018-03-27 [facility] [id number] Common 10:00:00 10:00:[address] [facility] 2017-12-24 2017-12-24 [facility] [id number] Common 10:15:00 10:15:[address] [facility] 2017-11-26 2017-11-26 [facility] [id number] Common 16:07:00 16:07:00 t [facility] [address] Sp[address] Road [facility] 2017-09-27 2017-09-27 [facility] [id number] Common 15:03:00 15:03:[address] [facility] 2017-09-27 2017-09-27 [facility] [id number] Common 12:09:00 12:09:[address] [facility] 2017-09-23 2017-09-23 [facility] [id number] Common 10:30:00 10:30:00 t [facility] [address] [facility] 2017-08-14 2017-08-14 [facility] [id number] Common 13:15:00 13:15:[address] [facility] Results This patient has no known results.
[2022-09-07] MEDS ORDERED: ACETAMINOPHEN 500 MG TAB ONE (07:45)
[2022-09-07] MEDS ORDERED: TDAP (DIPHTH,PERTUSS(ACELL),TET VAC) 0.5 ML VIAL IMVAC ONE (07:48)
[2022-09-07] MEDS ORDERED: FENTANYL CITR 100 MCG/2 ML ONE ×2 (08:08→09:43)
--- NOTE | 2022-09-07 08:19 | RAD REPORT ---
EXAM DESCRIPTION: CT - Head Brain Wo Cont - 09/07/2022 8:14 am CLINICAL HISTORY: pain sp fall ;Pain COMPARISON: No comparisons TECHNIQUE: All CT scans are performed using dose optimization technique as appropriate and may inclu de automated exposure control or mA/KV adjustment according to patient size. FINDINGS: No intracranial hemorrhage, hydrocephalus or extra-axial fluid collection.No areas of brai n edema or evidence of midline shift. Mild chronic small vessel ischemic changes. Cerebral atrophy. E x vacuo ventricular dilatation. The paranasal sinuses and mastoids are clear. The calvarium is intact. IMPRESSION: No acute intracranial abnormality.
--- NOTE | 2022-09-07 08:22 | RAD REPORT ---
EXAM DESCRIPTION: CT - C Spine Wo Con - 09/07/2022 8:14 am CLINICAL HISTORY: pain sp fall COMPARISON: No comparisons TECHNIQUE: CT Scan was obtained of the cervical spine without contrast. Reformats were provided in t he sagittal and coronal plane. FINDINGS: No acute fracture of the cervical spine. No traumatic malalignment. No prevertebral edema. No significant focal degenerative changes. No suspicious thyroid nodules or lymphadenopathy. Partial ly imaged pleural effusions. Status post C6-7 ACDF interbody cage. Osseous fusion present. No hardwar e complications. Varying degrees of neural foraminal narrowing noted bilaterally which is most pronou nced on the left at C3-4 and C4-5. IMPRESSION: No fracture or traumatic malalignment of the cervical spine. Probable pulmonary edema
--- NOTE | 2022-09-07 08:23 | RAD REPORT ---
EXAM DESCRIPTION: RAD - Chest Single View - 09/07/2022 8:12 am CLINICAL HISTORY: S/P FALL COMPARISON: Chest Single View dated 01/25/2022; Chest Single View dated 08/30/2016; CHEST PA AND LAT 2 VIEW dated 04/20/2010; CHEST PA AND LAT 2 VIEW dated 10/08/2002 FINDINGS: Lines: None. Lungs: Diffuse prominence of the pulmonary interstitium. Pleural: Bilateral pleural effusions. Cardiac: Cardiomegaly. Mediastinum: Within normal limits. Bones: No acute fractures. ACDF in the cervical spine. Other: None IMPRESSION: Pulmonary edema.
--- NOTE | 2022-09-07 08:24 | RAD REPORT ---
EXAM DESCRIPTION: RAD - Elbow Right 2 View - 09/07/2022 8:12 am CLINICAL HISTORY: pain sp fall COMPARISON: No comparisons FINDINGS/IMPRESSION: No acute fracture. No malalignment. Spurring at the radial head. Olecranon spur ring and coronoid spurring.
--- NOTE | 2022-09-07 08:26 | RAD REPORT ---
EXAM DESCRIPTION: RAD - Pelvis - 09/07/2022 8:12 am CLINICAL HISTORY: pain sp fall COMPARISON: No comparisons FINDINGS/IMPRESSION: Right intertrochanteric hip fracture. The left hip is intact. No pelvic fractur e identified. Degenerative changes in the lower spine.
--- NOTE | 2022-09-07 08:26 | RAD REPORT ---
EXAM DESCRIPTION: RAD - Hip Right 2 View - 09/07/2022 8:12 am CLINICAL HISTORY: pain sp fall COMPARISON: No comparisons FINDINGS/IMPRESSION: Right intertrochanteric hip fracture with mild superior and lateral displacemen t. No dislocation.
--- NOTE | 2022-09-07 08:30 | RAD REPORT ---
EXAM DESCRIPTION: CT - Pelvis Wo Cont - 09/07/2022 8:14 am CLINICAL HISTORY: fall COMPARISON: No comparisons FINDINGS: Comminuted right intertrochanteric hip fracture. No dislocation. Ing there is mild displac ement. Ankylosis of the sacroiliac joints. No pelvic fracture identified. Intact left hip. Atheroscle rosis. Normal appendix. Small fat containing inguinal hernias. Mild body wall edema. IMPRESSION: Comminuted right intertrochanteric hip fracture. No dislocation.
[2022-09-07 08:44] LABS: Protime INR 1.25
[2022-09-07 08:59] LABS: Bilirubin Total 0.8 mg/dL (0.2-1.0); Potassium 3.8 mEq/L (3.5-5.1); Protein, Total 6.6 g/dL (6.4-8.2)
[2022-09-07 09:02] LABS: Absolute Lymphocytes (CBC) 1.7 K/uL (0.7-4.9); Hematocrit 28.2 % (39.6-49.0); Lymphocytes % 15.4 % (15.3-44.8); MCV 88.4 fL (80-100); MPV 8.1 fL (7.6-11.3); RBC Red Blood Cell Count 3.19 M/uL (4.33-5.43)
--- NOTE | 2022-09-07 09:25 | ER ---
Nurse's Notes [facility] Name: Wayne Arredondo Age: 87 yrs Sex: Male : 1935 Arrival Date: 09/07/2022 Time: 07:13 Bed 7 Private MD: Diagnosis: Nondisplaced intertrochanteric fracture of right femur;Fall on same level, unspecified Presentation: 09/07 07:15 Chief complaint: EMS states: patient tripped and fell on his fire place. Patient cm10 complains of right hip and right thigh pain. Patient noted to have skin tears to right shoulder and right elbow. Pt A\T\O to self and situation. Per patient's family, no LOC, no blood thinners, didn't hit head. Coronavirus screen:. Coronavirus screen: Client denies travel out of the [place] in the last 14 days. Ebola Screen: No symptoms or risks identified at this time. Initial Sepsis Screen: Does the patient meet any 2 criteria? No. Patient's initial sepsis screen is negative. Does the patient have a suspected source of infection? No. Patient's initial sepsis screen is negative. Risk Assessment: Do you want to hurt yourself or someone else? Patient reports no desire to harm self or others. Onset of symptoms was September 07, 2022. 07:15 Method Of Arrival: EMS: [facility] cm10 07:15 Acuity: JON 3 cm10 07:20 Care prior to arrival: IV initiated. 20 GA, forearm. Mechanism of Injury: Fall. cm10 Historical: - Allergies: 07:19 PENICILLINS; cm10 - PMHx: 07:19 Alzheimer's disease; diabetes mellitus; Hypertensive disorder; thyroid disease; cm10 - Immunization history:: Adult Immunizations unknown. - Social history:: Smoking status: unknown. Screenin:23 [facility] ED Fall Risk Assessment (Adult) History of falling in the last 3 months, cm10 including since admission Yes- single mechanical fall (1 pt) Confusion or Disorientation No (0 pts) Intoxicated or Sedated No (0 pts) Impaired Gait Yes (1 pt) Mobility Assist Device Used Yes (1 pt) Altered Elimination No (0 pt) Score/Fall Risk Level 3 or more points = High Risk Oriented to surroundings, Maintained a safe environment, Educated pt \T\ family on fall prevention, incl call for assistance when getting out of bed. Abuse screen: Denies threats or abuse. Denies injuries from another. Nutritional screening: No deficits noted. Tuberculosis screening: No symptoms or risk factors identified. Assessment: 07:20 General: Appears in no apparent distress. uncomfortable, Behavior is calm, cooperative. cm10 Pain: Complains of pain in right hip and right upper leg Unable to use pain scale. Neuro: No deficits noted. Level of Consciousness is awake, alert, obeys commands, Oriented to person, situation. Cardiovascular: No deficits noted. Capillary refill < 3 seconds. Respiratory: No deficits noted. Airway is patent Trachea midline Respiratory effort is even, unlabored, Respiratory pattern is regular, symmetrical. Musculoskeletal: Reports pain in right hip and right upper leg. 08:59 Reassessment: No changes from previously documented assessment. Dr. Castellano at . ll1 11:30 Reassessment: No changes from previously documented assessment. Patient and/or family ll1 updated on plan of care and expected duration. Pain level reassessed. 13:20 Reassessment: No changes from previously documented assessment. Patient and/or family ll1 updated on plan of care and expected duration. Pain level reassessed. 13:50 Reassessment: pulled out IV from L arm. Catheter intact. ll1 14:11 Reassessment: No changes from previously documented assessment. Patient and/or family ll1 updated on plan of care and expected duration. Pain level reassessed. Vital Signs: 07:15 BP 157 / 71; Pulse 77; Resp 16; Temp 98.2(O); Pulse Ox 96% ; Weight 89 kg; cm10 09:45 BP 169 / 79; Pulse 68; Resp 18; Pulse Ox 99% on 2 lpm NC; cm10 13:26 BP 170 / 81; Pulse 83; Resp 17; Pulse Ox 99% on R/A; cm10 13:46 BP 160 / 91; Pulse 88; Resp 17; Pulse Ox 100% on 2 lpm NC; cm10 ED Course: 07:15 Patient arrived in ED. ll1 07:15 Angle Moya, VERNA is Primary Nurse. cm10 07:16 Cornel Castellano MD is Attending Physician. jr11 07:19 Triage completed. cm10 07:19 Arm band placed on Patient placed in an exam room, on a stretcher, on pulse oximetry. cm10 07:24 Patient has correct armband on for positive identification. Bed in low position. Call cm10 light in reach. Side rails up X 1. Side rails up X2. Pulse ox on. NIBP on. Warm blanket given. 07:25 ED physician to see patient. cm10 07:47 Radiology at bedside. cm10 08:[address] via stretcher. cm10 08:14 Pelvis XRAY In Process Unspecified. EDMS 08:14 Hip Right 2 View XRAY In Process Unspecified. EDMS 08:14 Elbow Right 2 View XRAY In Process Unspecified. EDMS 08:14 Chest Single View In Process Unspecified. EDMS 08:15 CT Head Brain wo Cont In Process Unspecified. EDMS 08:16 CT C Spine In Process Unspecified. EDMS 08:16 CT Pelvis wo Cont In Process Unspecified. EDMS 08:36 PT-INR Sent. cm10 08:36 CMP Sent. cm10 08:36 Initial lab(s) drawn, by ma, sent to lab. Inserted saline lock: 20 gauge in right cm10 forearm, using aseptic technique. Blood collected. 08:37 Patient moved back from [address]. cm10 09:23 Fitz Nunez is Hospitalizing Provider. jr11 11:30 Pt visited by son. cm10 12:40 Consulted physician to see patient. cm10 14:12 No provider procedures requiring assistance completed. Patient admitted, IV remains in ll1 place. Administered Medications: 07:45 Drug: Acetaminophen PO 1000 mg Route: PO; cm10 09:18 Follow up: Response: No adverse reaction; Pain is decreased cm10 07:45 Drug: Tetanus-Diphtheria Toxoid IM Adult 0.5 ml {Research Geneticist: [employer] ([employer]). cm10 Exp: 02/09/2023. Lot #: [id number]. } Route: IM; Site: right deltoid; 09:26 Follow up: Response: (VIS) Vaccine information sheet provided today. Questions and/or cm10 concerns addressed. VIS edition date: Oct 28, 2020.; No adverse reaction 09:17 Drug: fentaNYL (PF) IVP 25 mcg {Note: given at 0815.} Route: IVP; Site: left femoral; cm10 09:18 Follow up: Response: No adverse reaction; Pain is decreased cm10 09:18 Drug: Bacitracin Topical Ointment (500 unit/g) 1 application Route: Topical; Site: cm10 affected area; 14:06 Follow up: Response: No adverse reaction 10 09:36 Drug: fentaNYL (PF) IVP 25 mcg Route: IVP; Site: left forearm; cm10 11:10 Follow up: Response: No adverse reaction 10 13:09 Drug: fentaNYL (PF) IVP 25 mcg {Note: RASS 0 , pain 8/10.} Route: IVP; Site: right ll1 forearm; 14:06 Follow up: Response: No adverse reaction; Pain is decreased; RASS: Alert and Calm (0) 10 Medication: 14:13 VIS not applicable for this client. [facility] Outcome: 09:24 Decision to Hospitalize by Provider. [facility] 14:12 Admitted to Med/surg accompanied by tech, via stretcher, with chart, Report called to ll1 Frieda Guerrero RN 14:12 Condition: stable 14:12 Instructed on the need for admit. 14:33 Patient left the ED. 10 Signatures: Dispatcher [employer] EDHI Murray Casas RN RN 1 Cornel Castellano MD MD 11 Angle Moya RN RN 10 Corrections: (The following items were deleted from the chart) 08:45 08:36 CBC without Diff+H.LAB.BRZ drawn and sent. [facility] EDHI 14:12 11:30 Reassessment: No changes from previously documented assessment. Patient and/or ll1 family updated on plan of care and expected duration. Pain level reassessed. Patient is alert, oriented x 3, equal unlabored respirations, skin warm/dry/pink. [facility] 14:12 13:20 Reassessment: No changes from previously documented assessment. Patient and/or ll1 family updated on plan of care and expected duration. Pain level reassessed. Patient is alert, oriented x 3, equal unlabored respirations, skin warm/dry/pink. 10
--- NOTE | 2022-09-07 09:25 | EDPHYS ---
Physician Documentation [facility] Name: Wayne Arredondo Age: 87 yrs Sex: Male : 1935 Arrival Date: 09/07/2022 Time: 07:13 Bed 7 Private MD: ED Physician Cornel Castellano HPI: 09/07 07:50 This 87 yrs old Male presents to ER via EMS with complaints of Fall Injury, Leg Injury. jr11 07:50 Patient is an 87-year-old that prior to arrival had a mechanical fall, tripped over jr11 some decorative rocks in front of his chimney. Patient complaining of right elbow pain and right hip pain. Patient's not on a blood thinner and is severe with moving the right hip, denies any other complaints review of system otherwise negative.. Historical: - Allergies: 07:19 PENICILLINS; cm10 - PMHx: 07:19 Alzheimer's disease; diabetes mellitus; Hypertensive disorder; thyroid disease; cm10 - Immunization history:: Adult Immunizations unknown. - Social history:: Smoking status: unknown. ROS: 07:52 All other systems are negative. jr11 Exam: 07:52 Constitutional: This is a well developed, well nourished patient who is awake, alert, jr11 and in no acute distress. Head/Face: Normocephalic, atraumatic. Eyes: Extra-ocular motions intact. Lids and lashes normal. Conjunctiva and sclera are non-icteric and not injected. Cornea within normal limits. Periorbital areas with no swelling, redness, or edema. Neck: Trachea midline, no thyromegaly or masses palpated, and no cervical lymphadenopathy. Supple, full range of motion without nuchal rigidity, or vertebral point tenderness. No Meningismus. Chest/axilla: Normal chest wall appearance and motion. Nontender with no deformity. No lesions are appreciated. Cardiovascular: Regular rate and rhythm with a normal S1 and S2. No gallops, murmurs, or rubs. Normal PMI, no JVD. No pulse deficits. Respiratory: Lungs have equal breath sounds bilaterally, clear to auscultation and percussion. No rales, rhonchi or wheezes noted. No increased work of breathing, no retractions or nasal flaring. Abdomen/GI: Soft, non-tender, with normal bowel sounds. No distension or tympany. No guarding or rebound. No evidence of tenderness throughout. Back: No spinal tenderness. No costovertebral tenderness. Full range of motion. Skin: Small 1 x 1 cm skin tear over right knee and right elbow no bleeding also over posterior aspect of the right shoulder. MS/ Extremity: Pulses equal, no cyanosis. Neurovascular intact. Full, normal range of motion except right hip, limited range of motion secondary to pain, neurovascularly intact distally. Full range of motion of the right elbow right shoulder neurovascularly intact distally. Vital Signs: 07:15 BP 157 / 71; Pulse 77; Resp 16; Temp 98.2(O); Pulse Ox 96% ; Weight 89 kg; cm10 09:45 BP 169 / 79; Pulse 68; Resp 18; Pulse Ox 99% on 2 lpm NC; cm10 13:26 BP 170 / 81; Pulse 83; Resp 17; Pulse Ox 99% on R/A; cm10 13:46 BP 160 / 91; Pulse 88; Resp 17; Pulse Ox 100% on 2 lpm NC; cm10 MDM: 07:26 Patient medically screened. 11 07:52 Differential diagnosis: abrasion, closed head injury, contusion, fracture, multiple jr11 trauma, sprain, strain. Data reviewed: vital signs, nurses notes. 09:23 ED course: CT to my read, shows right intratrochanteric femur fracture, Dr. Nunez jr11 accepted. Care discussed with specialist Dr. Potts, CT done. Patient to be admitted for surgery. 09/07 07:55 Order name: CMP; Complete Time: 09:00 [facility] 09/07 07:55 Order name: PT-INR; Complete Time: 08:57 [facility] 09/07 08:45 Order name: CBC with Automated Diff; Complete Time: 09:09 EDMS 09/07 07:32 Order name: Pelvis XRAY; Complete Time: 08:57 [facility] 09/07 07:32 Order name: Hip Right 2 View XRAY; Complete Time: 08:57 [facility] 09/07 07:32 Order name: Elbow Right 2 View XRAY; Complete Time: 08:57 [facility] 09/07 07:52 Order name: CT Head Brain wo Cont; Complete Time: 08:57 [facility] 09/07 07:52 Order name: CT C Spine; Complete Time: 08:57 [facility] 09/07 08:02 Order name: CT Pelvis wo Cont; Complete Time: 08:57 eb 09/07 08:07 Order name: Chest Single View; Complete Time: 08:57 EDMS 09/07 07:32 Order name: Wound Care; Complete Time: 08:57 jr11 09/07 07:55 Order name: Pulse Ox Monitoring; Complete Time: 07:58 Administered Medications: 07:45 Drug: Acetaminophen PO 1000 mg Route: PO; cm10 09:18 Follow up: Response: No adverse reaction; Pain is decreased cm10 07:45 Drug: Tetanus-Diphtheria Toxoid IM Adult 0.5 ml {Senior Auditor: [employer] cm10 Exp: 02/09/2023. Lot #: [id number]. } Route: IM; Site: right deltoid; 09:26 Follow up: Response: (VIS) Vaccine information sheet provided today. Questions and/or cm10 concerns addressed. VIS edition date: Oct 28, 2020.; No adverse reaction 09:17 Drug: fentaNYL (PF) IVP 25 mcg {Note: given at 0815.} Route: IVP; Site: left femoral; cm10 09:18 Follow up: Response: No adverse reaction; Pain is decreased cm10 09:18 Drug: Bacitracin Topical Ointment (500 unit/g) 1 application Route: Topical; Site: cm10 affected area; 14:06 Follow up: Response: No adverse reaction cm10 09:36 Drug: fentaNYL (PF) IVP 25 mcg Route: IVP; Site: left forearm; cm10 11:10 Follow up: Response: No adverse reaction cm10 13:09 Drug: fentaNYL (PF) IVP 25 mcg {Note: RASS 0 , pain 8/10.} Route: IVP; Site: right ll1 forearm; 14:06 Follow up: Response: No adverse reaction; Pain is decreased; RASS: Alert and Calm (0) cm10 Disposition Summary: 09/07/22 09:24 Hospitalization Ordered Hospitalization Status: Inpatient Admission [facility] Provider: Fitz Nunez Location: Telemetry/MedSurg (Inpatient) [facility] Condition: Stable [facility] Problem: new [facility] Symptoms: are unchanged [facility] Bed/Room Type: Standard [facility] Room Assignment: (09/07/22 12:55) dw Diagnosis - Nondisplaced intertrochanteric fracture of right femur jr11 - Fall on same level, unspecified jr11 Forms: - Medication Reconciliation Form jr11 - SBAR form jr11 Signatures: Dispatcher [employer] EDMS Rina Singh RN RN dw Murray Casas RN RN ll1 Cornel Castellano MD MD jr11 Angle Moya RN RN cm10 Corrections: (The following items were deleted from the chart) 08:45 07:55 CBC without Diff+H.LAB.BRZ ordered. EDNY EDMS 12:55 09:24 jr11 dw
--- NOTE | 2022-09-07 15:15 | P.HP ---
Certification for Inpatient Patient admitted to: Inpatient With expected LOS: >2 Midnights Practitioner: I am a practitioner with admitting privileges, knowledge of patient current condition, hospital course, and medical plan of care. Services: Services provided to patient in accordance with Admission requirements found in Title 42 Section 412.3 of the Code of Federal Regulations Patient History Date of Service: 09/07/22 Reason for admission: Fall History of Present Illness: 87-year-old gentleman with a history of dementia was brought to the emergency department due to a fall at home. Patient is reported to have tripped on a decorative stone near his fireplace. No reported loss of consciousness. No witnessed seizures. Imaging done in the emergency department shows comminuted right intertrochanteric fracture. Head CT negative for acute disease. Other images no other fracture. Orthopedic surgeon Dr. Potts contacted who recommended ORIF. Family agrees to ORIF. Patient is hospitalized for further management. Patient was exhibiting confusion during my examination in the ED. Allergies Penicillins Allergy (Verified 01/25/22 21:12) Itching/Hives/Rash Home Medications: Melatonin 10 mg PO BEDTIME PRN PRN #60 tab 01/26/22 predniSONE [Deltasone] 20 mg PO DAILY #7 tab 01/26/22 Levothyroxine [Synthroid] 75 mcg PO [id number] 09/07/22 Mv-Mn/Om3/Dha/Epa/Fish/Lut/Ronen [Ocuvite Adult 50 Plus Softgel] 1 each PO 09/07/22 - Past Medical/Surgical History Diabetic: Yes -: Asbestosis -: HTN -: Hypothroidism -: HLD -: NIDDM -: Dementia -: Cataract surgery Bilaterally -: Choley -: Tonsillectomy -: Neck Sx with titanium plate in C-spine -: Right Knee sx -: Heel Spur removal -: Rotator Cuff repair of R shoulder - Family History Family History: Reviewed- Non-Contributory - Social History Alcohol use: No CD- Drugs: No Caffeine use: Yes Place of Residence: Home Review of Systems Other: No reported fever, no reported vomiting or diarrhea. No reported shortness of breath. Unable to obtain full review of systems due to advanced dementia. Physical Examination - Physical Exam General: In no apparent distress, Demented, Confused HEENT: Atraumatic, PERRLA, Mucous membr. moist/pink, Sclerae nonicteric Neck: Supple, JVD not distended Respiratory: Clear to auscultation bilaterally, Normal air movement Cardiovascular: No edema, Regular rate/rhythm, Normal S1 S2 Gastrointestinal: Normal bowel sounds, Soft and benign, Non-distended, No tenderness Musculoskeletal: No swelling, Other (Right lower extremity is shortened and laterally rotated.) Integumentary: No rashes, No cyanosis Neurological: Normal speech, Other (No focal motor deficit), Dementia Lymphatics: No axilla or inguinal lymphadenopathy - Studies Laboratory Data (last 24 hrs) 09/07/22 08:34: PT 13.8 H, INR 1.25 09/07/22 08:34: Sodium 140, Potassium 3.8, BUN 26 H, Creatinine 1.36 H, Glucose 129 H, Total Bilirubin 0.8, AST 14 L, ALT 15 L, Alkaline Phosphatase 86 09/07/22 08:34: WBC 11.30 H, Hgb 9.1 L, Hct 28.2 L, Plt Count 253 Assessment and Plan - Problems (Diagnosis) (1) Fall Current Visit: Yes Status: Acute (2) Fracture of right hip Current Visit: Yes Status: Acute (3) Alzheimer's dementia Current Visit: No Status: Acute (4) HTN (hypertension) Onset Date: 08/30/16 Current Visit: No Status: Acute (5) Hypothyroid Onset Date: 08/30/16 Current Visit: No Status: Acute Qualifiers: (6) Chronic anemia Current Visit: Yes Status: Acute - Plan Admit patient to the medical floor. Orthopedic Dr. Potts consulted. Dr. Potts is planning ORIF tomorrow. Pain management-[place] and fentanyl as needed. Resume home antihypertensives. Hydralazine as needed for BP spike. Watch for agitation given history of dementia. Haldol as needed for agitation. Diet as tolerated. IV hydration. Monitor H&H and transfuse as needed for hemoglobin less than 8 preop. Reconcile and continue other home medications. - Advance Directives Does patient have a Living Will: Yes Does patient have a Durable POA for Healthcare: Yes
[2022-09-07 15:38] VITALS: BMI 18.4
[2022-09-07] MEDS ORDERED: NA CHLORIDE 0.9% 1,000 ML IV SCH (15:41)
[2022-09-07] MEDS ORDERED: ONDANSETRON 4 MG/2 ML VIAL IV PRN (15:41)
[2022-09-07] MEDS: HYDROCODONE/APAP 5/325 MG TAB PO PRN ×2 (17:05→22:44)
[2022-09-07 17:58] LABS: Specific Gravity 1.013 (1.005-1.030); Urine Bacteria None Seen /HPF (<20); Urine Bilirubin NEGATIVE (Negative); Urine Blood 1+ (Negative); Urine Clarity Clear (Clear); Urine Color Light-Yellow (Yellow); Urine Glucose NEGATIVE (Negative); Urine Mucus Slight /HPF (None Seen); Urine Protein TRACE (Negative); Urine RBC <5 /HPF (None Seen); Urine Urobilinogen Normal (Normal); Urine pH 6.5 (5.0-7.0)
[2022-09-07] MEDS: HALOPERIDOL LACT 5 MG/ML INJ IV PRN (20:36)
[2022-09-08] MEDS: FENTANYL CITR 100 MCG/2 ML IV PRN ×2 (01:28→05:23)
[2022-09-08 02:57] LABS: Absolute Lymphocytes (CBC) 1.1 K/uL (0.7-4.9); Hematocrit 29.6 % (39.6-49.0); Lymphocytes % 7.7 % (15.3-44.8); MCV 88.5 fL (80-100); MPV 8.4 fL (7.6-11.3); RBC Red Blood Cell Count 3.34 M/uL (4.33-5.43)
[2022-09-08 03:12] LABS: Magnesium 1.6 mg/dL (1.6-2.4); Phosphorus 2.5 mg/dL (2.5-4.9); Potassium 3.9 mEq/L (3.5-5.1)
[2022-09-08] MEDS ORDERED: MAGNESIUM SULFATE 1 gm IVPB 1 GM/100 ML BAG IV ONE (03:17)
[2022-09-08] MEDS: LEVOTHYROXINE SOD 0.075 MG TAB PO SCH (06:00)
[2022-09-08] MEDS ORDERED: NS 0.9% VIAL 10 ML ONE (07:42)
[2022-09-08] MEDS ORDERED: NA CHLORIDE 0.9% 100 ML ONE (07:45)
[2022-09-08] MEDS ORDERED: NA CHLORIDE 0.9% 1,000 ML ONE (07:50)
[2022-09-08] MEDS ORDERED: Phenylephrine HCl 10 MG/ML 1 ML VIAL ONE (08:17)
[2022-09-08] MEDS ORDERED: propofoL 200 MG/20 ML VIAL IV ONE (08:17)
[2022-09-08] MEDS ORDERED: FENTANYL CITR 100 MCG/2 ML ONE ×2 (08:17→09:59)
[2022-09-08] MEDS ORDERED: NS 0.9% VIAL 20 ML ONE (08:18)
[2022-09-08] MEDS ORDERED: CEFAZOLIN SODIUM 2 GM/VIAL ONE (08:20)
[2022-09-08] MEDS ORDERED: TRANEXAMIC ACID 1,000 MG/10 ML VIAL IV ONE (08:20)
--- NOTE | 2022-09-08 08:47 | CON ---
Preoperative Diagnosis And Reason For Consultation: Right intertrochanteric hip fracture. History Of Present Illness: Mr. Arredondo is an 87-year-old gentleman, suffering from several chronic me dical conditions. He sustained a fall and a right intertrochanteric hip fracture. We were asked to evaluate and treat this injury. Past Medical History: Significant for lower GI bleed, severe Alzheimer, chronic anemia, renal failur e, hypertension, diabetes, and hypothyroidism. Allergies: HE IS ALLERGIC TO PENICILLIN. Review of Systems: I have no additional information. His primary caregiver is his grandson who also has medical power o f feather baler. His grandson is present during this interview and obtaining of consent. Physical Examination: He is an elderly gentleman, appears in ill health and quite frail. He clearly suffers from dementia, repeating questions shortly after they were answered. He has an abrasion above his right eyebrow. Unable to examine his thoracic lumbar spine secondary to the known right hip fracture. Right lower e xtremity is short and externally rotated. He has palpable dorsalis pedis pulse. Neurologic assessme nt is unable to be accessed due to the frailty and confinement to bed and dementia. Imaging Data: X-rays revealed a displaced intertrochanteric right hip fracture. Plan: Will be to have medical clearance and take him to the operative suite for repair of the hip fr acture consistent with family wishes. NESTOR/BRANDAN Voice ID: [id number] Report ID: [id number]
[2022-09-08] MEDS ORDERED: POTASSIUM PHOS IN 0.9 % NACL 15 MMOL/250 ML BAG IV ONE (09:00)
[2022-09-08] MEDS ORDERED: ONDANSETRON 4 MG/2 ML VIAL ONE (09:34)
[2022-09-08] MEDS ORDERED: NA CHLORIDE 0.9% 1,000 ML IV SCH (10:00)
--- NOTE | 2022-09-08 10:03 | RAD REPORT ---
EXAM DESCRIPTION: XA - Hip in OR Right 2 View - 09/08/2022 9:54 am CLINICAL HISTORY: RIGHT HIP RODDING COMPARISON: CT ABD PELVIS W CONTRAST dated 02/22/2014; CT ABD PELVIS W CONTRAST dated 06/25/2012Melisa castillo FINDINGS: Fluoroscopy time: 0.4 minutes.
--- NOTE | 2022-09-08 10:04 | RAD REPORT ---
EXAM DESCRIPTION: RAD - Pelvis - 09/08/2022 9:54 am CLINICAL HISTORY: s/p right hip IM rodding COMPARISON: Pelvis dated 09/07/2022 FINDINGS: Hardware is present in the proximal right femur. No unexpected postoperative finding. Late ral skin dannie are noted.
--- NOTE | 2022-09-08 10:17 | OP ---
Surgeon: Cristian Potts MD Sergeant Of Corrections: Diesel Fleet Mechanic: Krys. Preoperative Diagnosis: Right intertrochanteric hip fracture. Postoperative Diagnosis: Right intertrochanteric hip fracture. Procedure Performed: Right intertrochanteric hip fracture rodding. Complications: None. Disposition: Recovery room, stable. Operative Report In Detail: The patient was taken to the operative suite, placed in supine position, and induced with anesthesia. The right lower extremity was prepped and draped in usual sterile fash ion after suspension reduction on the fracture table. A skin incision was created over the greater t rochanter. An awl was utilized to create an anterior portal. A guidewire was passed for single stag e reaming. An 11 x 125 mm, 180 mm nail was then placed. A 10.5 x 90 mm screw was placed in the subc hondral bone in a cephalomedullary fashion, verified on biplane radiography. A 36 distal interlock s crew was then placed. A layered closure was being performed at the time of this dictation. The armando ent should be in the recovery room shortly. NESTOR/BRANDAN Voice ID: [id number] Report ID: [id number]
--- NOTE | 2022-09-08 13:08 | P.PN ---
Subjective Date of Service: 09/08/22 Chief Complaint: Fall Status post ORIF today. Patient is unable to give any subjective complaint. Physical Examination - Vital Signs Temperature: 97.7 F Blood Pressure: 156/75 Pulse: 70 Respirations: 16 Pulse Ox (%): 94 Assessment And Plan - Current Problems (Diagnosis) (1) Fall Current Visit: Yes Status: Acute (2) Fracture of right hip Current Visit: Yes Status: Acute (3) Alzheimer's dementia Current Visit: No Status: Acute (4) HTN (hypertension) Onset Date: 08/30/16 Current Visit: No Status: Acute (5) Hypothyroid Onset Date: 08/30/16 Current Visit: No Status: Acute Qualifiers: (6) Chronic anemia Current Visit: Yes Status: Acute - Plan Physical Exam General: In no apparent distress, Dementia, Confused Neck: Supple, JVD not distended Respiratory: Clear to auscultation bilaterally, Normal air movement Cardiovascular: No edema, Regular rate/rhythm, Normal S1 S2 Gastrointestinal: Normal bowel sounds, Soft and benign, Non-distended, No tenderness Musculoskeletal: No swelling. Integumentary: No rashes, No cyanosis Neurological: Normal speech, No focal motor deficit, Dementia Plan: Status post ORIF by Dr. Potts Pain management-[place] and fentanyl as needed. Continue home antihypertensives. Hydralazine as needed for BP spike. Watch for agitation given history of dementia. Haldol as needed for agitation. Diet as tolerated. PT consult. IV hydration. Monitor H&H and transfuse as needed for hemoglobin less than 8 preop. Continue other home medications.
[2022-09-08] MEDS: HYDROCODONE/APAP 5/325 MG TAB PO PRN ×2 (13:58→17:58)
[2022-09-08] MEDS: AMLODIPINE 5 MG TAB PO SCH (14:02)
[2022-09-08] MEDS: CEFAZOLIN 1 GM in NA CHLORIDE 0.9% 50 ML IVPB SCH (16:55)
[2022-09-08] MEDS: HALOPERIDOL LACT 5 MG/ML INJ IV PRN (23:08)
[2022-09-09] MEDS: CEFAZOLIN 1 GM in NA CHLORIDE 0.9% 50 ML IVPB SCH (00:14)
[2022-09-09 03:16] LABS: Hematocrit 27.4 % (39.6-49.0)
[2022-09-09 03:38] LABS: Magnesium 1.9 mg/dL (1.6-2.4); Phosphorus 2.9 mg/dL (2.5-4.9)
[2022-09-09] MEDS: ENOXAPARIN 30 MG/0.3 ML SQ SCH ×2 (03:56→15:48)
[2022-09-09] MEDS: LEVOTHYROXINE SOD 0.075 MG TAB PO SCH (05:06)
[2022-09-09] MEDS: AMLODIPINE 5 MG TAB PO SCH (09:27)
--- NOTE | 2022-09-09 11:01 | P.PN ---
Subjective Date of Service: 09/09/22 Chief Complaint: Fall Status post ORIF 09/08. Nursing staff report patient was agitated last night and needed Haldol. Per report patient has been aspirating solid to liquids. Physical Examination - Vital Signs Temperature: 98.1 F Blood Pressure: 143/72 Pulse: 73 Respirations: 14 Pulse Ox (%): 97 Assessment And Plan - Current Problems (Diagnosis) (1) Fall Current Visit: Yes Status: Acute (2) Fracture of right hip Current Visit: Yes Status: Acute (3) Alzheimer's dementia Current Visit: No Status: Acute (4) HTN (hypertension) Onset Date: 08/30/16 Current Visit: No Status: Acute (5) Hypothyroid Onset Date: 08/30/16 Current Visit: No Status: Acute Qualifiers: (6) Chronic anemia Current Visit: Yes Status: Acute (7) Oropharyngeal dysphagia Current Visit: Yes Status: Acute - Plan Physical Exam General: In no apparent distress, Dementia, Confused Neck: Supple, JVD not distended Respiratory: Clear to auscultation bilaterally, Normal air movement Cardiovascular: No edema, Regular rate/rhythm, Normal S1 S2 Gastrointestinal: Normal bowel sounds, Soft and benign, Non-distended, No tenderness Musculoskeletal: No swelling. Integumentary: No rashes, No cyanosis Neurological: Normal speech, No focal motor deficit, Dementia Plan: Status post ORIF 09/[address] Potts Pain management-[place] and fentanyl as needed. Continue home antihypertensives. Hydralazine as needed for BP spike. Haldol as needed for agitation. Keep n.p.o. today. Start IV D5 normal saline. Speech therapy consult. PT consulted. Monitor H&H and transfuse as needed for hemoglobin less than 8 preop. Continue other home medications.
[2022-09-09] MEDS: D5 0.9 NS 1,000 ML IV SCH (17:00)
--- NOTE | 2022-09-09 17:46 | P.PN ---
Subjective Date of Service: 09/09/22 Chief Complaint: Fall Subjective: No new changes, Tolerating diet, Working w/ PT, Doing well (wanting to go home) Review of Systems 10-point ROS is otherwise unremarkable Physical Examination - Vital Signs Temperature: 98.5 F Blood Pressure: 145/77 Pulse: 84 Respirations: 16 Pulse Ox (%): 98 - Physical Exam Musculoskeletal: Other (dressings c/d/i) Assessment And Plan - Plan work with pt and social work on a discharge plan when safe and stable, he has support at home and would like to go home. touch down weight barring only for 6 weeks, importance stressed to patient, anticoagulate 28 days post op, follow up in office2 weeks post op. Plan to discharge in: 24 Hours
[2022-09-09] MEDS: HALOPERIDOL LACT 5 MG/ML INJ IV PRN (19:27)
[2022-09-09] MEDS: FENTANYL CITR 100 MCG/2 ML IV PRN (21:57)
[2022-09-09] MEDS ORDERED: METHOCARBAMOL 1,000 MG/10 ML VIAL ONE (23:34)
[2022-09-09] MEDS ORDERED: NA CHLORIDE 0.9% 100 ML ONE (23:34)
[2022-09-10] MEDS: HALOPERIDOL LACT 5 MG/ML INJ IV PRN ×4 (00:14→19:27)
[2022-09-10] MEDS: ENOXAPARIN 30 MG/0.3 ML SQ SCH ×2 (02:50→14:25)
[2022-09-10 03:43] LABS: Hematocrit 26.5 % (39.6-49.0)
[2022-09-10 03:55] LABS: Albumin 2.9 g/dL (3.4-5.0); Phosphorus 2.1 mg/dL (2.5-4.9); Potassium 3.8 mEq/L (3.5-5.1)
[2022-09-10] MEDS: LEVOTHYROXINE SOD 0.075 MG TAB PO SCH (05:03)
[2022-09-10] MEDS ORDERED: NA CHLORIDE 0.9% 250 ML ONE (05:59)
[2022-09-10] MEDS ORDERED: KCL 20 MEQ/100 mL IVPB 20 MEQ/100 ML BAG IV ONE (06:00)
[2022-09-10] MEDS: FENTANYL CITR 100 MCG/2 ML IV PRN ×2 (06:03→10:52)
[2022-09-10] MEDS: D5 0.9 NS 1,000 ML IV SCH ×2 (06:07→19:25)
[2022-09-10] MEDS: AMLODIPINE 5 MG TAB PO SCH (09:00)
[2022-09-10] MEDS ORDERED: POTASSIUM PHOS IN 0.9 % NACL 15 MMOL/250 ML BAG IV ONE (09:00)
--- NOTE | 2022-09-10 13:05 | P.PN ---
Subjective Date of Service: 09/10/22 Chief Complaint: Fall Status post ORIF 09/08. Nursing staff report patient has been agitated at night. He was given Haldol this morning and was sleeping during my examination. He has been seen by speech therapy who recommended pured diet and nectar thickened liquids. Physical Examination - Vital Signs Temperature: 97.9 F Blood Pressure: 167/74 Pulse: 81 Respirations: 16 Pulse Ox (%): 98 Assessment And Plan - Current Problems (Diagnosis) (1) Fall Current Visit: Yes Status: Acute (2) Fracture of right hip Current Visit: Yes Status: Acute (3) Alzheimer's dementia Current Visit: No Status: Acute (4) HTN (hypertension) Onset Date: 08/30/16 Current Visit: No Status: Acute (5) Hypothyroid Onset Date: 08/30/16 Current Visit: No Status: Acute Qualifiers: (6) Chronic anemia Current Visit: Yes Status: Acute (7) Oropharyngeal dysphagia Current Visit: Yes Status: Acute - Plan Physical Exam General: In no apparent distress, Dementia, Confused Neck: Supple, JVD not distended Respiratory: Clear to auscultation bilaterally, Normal air movement Cardiovascular: No edema, Regular rate/rhythm, Normal S1 S2 Gastrointestinal: Normal bowel sounds, Soft and benign, Non-distended, No tender ness Musculoskeletal: No swelling. Integumentary: No rashes, No cyanosis Neurological: Normal speech, No focal motor deficit, Dementia Plan: Status post ORIF 09/[address] Potts Pain management-[place] as needed. Continue home antihypertensives. Hydralazine as needed for BP spike. Haldol as needed for agitation. Pured diet, nectar thickened liquids. Per report family would like to have patient home rather than go to rehab. Continue PT as tolerated. Hemoglobin has been stable. Continue other home medications.
[2022-09-10] MEDS: HYDROCODONE/APAP 5/325 MG TAB PO PRN ×2 (15:36→19:27)
[2022-09-10] MEDS: HYDRALAZINE HCL 20 MG/ML VIAL IV PRN (15:55)
[2022-09-11] MEDS: D5 0.9 NS 1,000 ML IV SCH ×2 (00:10→10:22)
[2022-09-11] MEDS: HALOPERIDOL LACT 5 MG/ML INJ IV PRN ×2 (00:57→19:50)
[2022-09-11] MEDS: ENOXAPARIN 30 MG/0.3 ML SQ SCH ×2 (03:24→15:28)
[2022-09-11 03:44] LABS: Hematocrit 24.5 % (39.6-49.0)
[2022-09-11 03:53] LABS: Albumin 2.7 g/dL (3.4-5.0); Magnesium 1.8 mg/dL (1.6-2.4); Phosphorus 2.2 mg/dL (2.5-4.9)
[2022-09-11] MEDS: LEVOTHYROXINE SOD 0.075 MG TAB PO SCH (05:03)
[2022-09-11] MEDS ORDERED: MAGNESIUM SULFATE 1 gm IVPB 1 GM/100 ML BAG IV ONE (06:00)
--- NOTE | 2022-09-11 06:58 | P.PN ---
Date of Service: 09/11/22 Subjective: remains confused, trying to get out of bed multiple times minimal appetite per staff received haldol last night, sleepy this morning ROS: 10 point ROS as noted above, otherwise negative Physical Exam: GEN: NAD, Dementia, Confused HEENT: Normal conjunctiva, sclera anicteric CV: Regular rate and rhythm, no edema Pulm: Nonlabored respirations on room air MSK: mild tenderness along surgical site Integumentary: dressing c/d/i Neuro: Normal speech, +Dementia, intact distal sensation vitals reviewed Problem List: Fracture of right hip, now s/p ORIF (09/08) Alzheimer's dementia Hypertension Hypothyroidism Chronic anemia Oropharyngeal Dysphagia Fracture of right hip , now s/p ORIF (09/08) s/p ORIF 09/[address] Potts Pain management-[place] as needed. Continue PT as tolerated. Alzheimer's Dementia with possible/likely component of delirium haldol PRN Hypertension Continue home antihypertensives. increased amlodipine 09/11 Hydralazine as needed for BP spike. Chronic anemia Hypothyroidism monitor hgb, mild downtrend, no active bleeding Continue other home medications. Oropharyngeal Dysphagia Pured diet, nectar thickened liquids on gentle IVF as he is not eating much VTE: Lovenox Code: Full Dispo: SNF, ~2 days
[2022-09-11] MEDS ORDERED: POTASSIUM PHOS IN 0.9 % NACL 15 MMOL/250 ML BAG IV ONE (09:00)
[2022-09-11] MEDS: AMLODIPINE 10 MG TAB PO SCH (10:20)
[2022-09-11] MEDS: HYDROCODONE/APAP 5/325 MG TAB PO PRN ×2 (12:58→17:54)
[2022-09-11] MEDS: ENSURE SURGERY 237 ML CAN PO SCH (19:49)
[2022-09-12] MEDS: HYDROCODONE/APAP 5/325 MG TAB PO PRN ×3 (00:16→16:58)
[2022-09-12] MEDS: D5 0.9 NS 1,000 ML IV SCH (00:17)
[2022-09-12] MEDS: HALOPERIDOL LACT 5 MG/ML INJ IV PRN ×2 (00:17→04:21)
[2022-09-12] MEDS: ENOXAPARIN 30 MG/0.3 ML SQ SCH ×2 (03:32→14:14)
[2022-09-12 03:54] LABS: Hematocrit 24.4 % (39.6-49.0); MCV 88.6 fL (80-100); MPV 8.4 fL (7.6-11.3); RBC Red Blood Cell Count 2.76 M/uL (4.33-5.43)
[2022-09-12 04:07] LABS: Albumin 2.7 g/dL (3.4-5.0); Phosphorus 2.4 mg/dL (2.5-4.9); Potassium 4.2 mEq/L (3.5-5.1)
[2022-09-12] MEDS: LEVOTHYROXINE SOD 0.075 MG TAB PO SCH (05:35)
--- NOTE | 2022-09-12 06:52 | P.PN ---
Date of Service: 09/12/22 Subjective: remains confused today remains on haldol; falling asleep while asking patient questions appetite improving; ate 100% of breakfast per staff reports having R hip pain, does not recall it was broken / required surgery ROS: 10 point ROS as noted above, otherwise negative Physical Exam: GEN: NAD, Dementia, Confused HEENT: Normal conjunctiva, sclera anicteric CV: Regular rate and rhythm, no edema Pulm: Nonlabored respirations on room air MSK: mild tenderness along surgical site Integumentary: dressing c/d/i Neuro: +Dementia, falling asleep after responding with a few words, moves extremities vitals reviewed Problem List: Fracture of right hip after fall, now s/p ORIF (09/08) Alzheimer's dementia acute delirium Hypertension Hypothyroidism Chronic anemia Oropharyngeal Dysphagia Fracture of right hip , now s/p ORIF (09/08) s/p ORIF 09/[address] Potts Pain management-[place] as needed. Continue PT as tolerated. Alzheimer's Dementia acute delirium with likely component of delirium haldol PRN patient appears over-medicated receiving quite often, will dc order started zyprexa 09/12 at bedtime Hypertension Continue home antihypertensives. increased amlodipine 09/11 Hydralazine as needed for BP spike. Chronic anemia Hypothyroidism monitor hgb, mild downtrend, no active bleeding Continue other home medications. Oropharyngeal Dysphagia Pured diet, nectar thickened liquids appetite improving, dc IVF 09/12 VTE: Lovenox Code: Full Dispo: SNF, ~2-3 days
[2022-09-12] MEDS: ENSURE SURGERY 237 ML CAN PO SCH ×2 (09:00→22:28)
[2022-09-12] MEDS: POTASS/SODIUM PHOSPHATE 1 PKT POWD.PACK PO SCH ×2 (09:15→09:16)
[2022-09-12] MEDS: AMLODIPINE 10 MG TAB PO SCH (09:16)
[2022-09-12] MEDS: OLANZapine 2.5 MG TAB PO SCH (20:01)
[2022-09-13] MEDS: HYDROCODONE/APAP 5/325 MG TAB PO PRN ×3 (01:22→20:47)
[2022-09-13] MEDS: ENOXAPARIN 30 MG/0.3 ML SQ SCH ×2 (03:23→14:55)
[2022-09-13 03:31] LABS: Absolute Lymphocytes (CBC) 1.6 K/uL (0.7-4.9); Hematocrit 24.5 % (39.6-49.0); Lymphocytes % 18.7 % (15.3-44.8); MCV 88.5 fL (80-100); MPV 8.4 fL (7.6-11.3); RBC Red Blood Cell Count 2.76 M/uL (4.33-5.43)
[2022-09-13 03:55] LABS: Magnesium 1.6 mg/dL (1.6-2.4); Potassium 4.5 mEq/L (3.5-5.1)
[2022-09-13] MEDS ORDERED: MAGNESIUM SULFATE 1 gm IVPB 1 GM/100 ML BAG IV ONE (04:33)
[2022-09-13] MEDS: LEVOTHYROXINE SOD 0.075 MG TAB PO SCH (05:40)
--- NOTE | 2022-09-13 06:54 | P.PN ---
Date of Service: 09/13/22 Subjective: remains confused, trying to get out of bed per nurses at times more awake today not as combative as he was days ago R hip pain, doesn't remember what happened otherwise no new / worsening problems ROS: 10 point ROS as noted above, otherwise negative Physical Exam: GEN: NAD, Dementia, Confused HEENT: Normal conjunctiva, sclera anicteric CV: Regular rate and rhythm, no edema Pulm: Nonlabored respirations on room air MSK: mild tenderness along surgical site Integumentary: dressing c/d/i Neuro: +Dementia, moves extremities vitals reviewed Problem List: Fracture of right hip after fall, now s/p ORIF (09/08) Alzheimer's dementia acute delirium Hypertension Hypothyroidism Chronic anemia Oropharyngeal Dysphagia Fracture of right hip , now s/p ORIF (09/08) s/p ORIF 09/[address] Potts Pain management-[place] as needed. Continue PT as tolerated has not been evaluated in a few days Alzheimer's Dementia acute delirium with likely component of delirium haldol DCd 09/12 continue zyprexa at bedtime remains with confusion/dementia less combative, more alert/following commands Hypertension Continue home antihypertensives. increased amlodipine 09/11 Hydralazine as needed for BP spike. Chronic anemia Hypothyroidism monitor hgb, stable Continue other home medications. Oropharyngeal Dysphagia Pured diet, nectar thickened liquids appetite improving, dc IVF 09/12 VTE: Lovenox Code: Full Dispo: SNF, ~2 days
[2022-09-13] MEDS: AMLODIPINE 10 MG TAB PO SCH (08:39)
[2022-09-13] MEDS: ENSURE SURGERY 237 ML CAN PO SCH ×2 (08:40→20:47)
[2022-09-13] MEDS: HYDRALAZINE HCL 20 MG/ML VIAL IV PRN (17:18)
[2022-09-13] MEDS: OLANZapine 2.5 MG TAB PO SCH (20:47)
[2022-09-14] MEDS: ENOXAPARIN 30 MG/0.3 ML SQ SCH ×2 (02:58→14:17)
[2022-09-14] MEDS: LEVOTHYROXINE SOD 0.075 MG TAB PO SCH (05:25)
--- NOTE | 2022-09-14 06:57 | P.PN ---
Date of Service: 09/14/22 Subjective: +Dementia, weak more awake/alert today reports feels "terrible", then when asked more, he says pain isn't as bad does not recall all events ROS: 10 point ROS as noted above, otherwise negative Physical Exam: GEN: NAD, Dementia, Confused HEENT: Normal conjunctiva, sclera anicteric CV: Regular rate and rhythm, no edema Pulm: Nonlabored respirations on room air MSK: mild tenderness along surgical site Integumentary: dressing c/d/i Neuro: +Dementia, moves extremities vitals reviewed Problem List: Fracture of right hip after fall, now s/p ORIF (09/08) Alzheimer's dementia acute delirium Hypertension Hypothyroidism Chronic anemia Oropharyngeal Dysphagia Fracture of right hip , now s/p ORIF (09/08) s/p ORIF 09/[address] Potts Pain management-[place] as needed. Continue PT as tolerated unable to stand upright with PT yesterday Alzheimer's Dementia acute delirium with component of delirium haldol DCd 09/12 pt was sleeping too much / more lethargic continue zyprexa 2.5mg at bedtime (transitioned to this from haldol) remains with confusion/dementia, but delirium seems to be improving more alert/following commands Hypertension Continue home antihypertensives. increased amlodipine 09/11 Hydralazine as needed for BP spike. Chronic anemia Hypothyroidism monitor hgb, stable Continue other home medications. Oropharyngeal Dysphagia Pured diet, nectar thickened liquids appetite improving, dc'd IVF 09/12 VTE: Lovenox Code: Full Dispo: SNF, ~1-2 days
[2022-09-14] MEDS: AMLODIPINE 10 MG TAB PO SCH (08:03)
[2022-09-14] MEDS: ENSURE SURGERY 237 ML CAN PO SCH ×2 (08:03→21:00)
[2022-09-14 10:23] LABS: Magnesium 1.9 mg/dL (1.6-2.4); Potassium 4.6 mEq/L (3.5-5.1)
[2022-09-14] MEDS: HYDRALAZINE HCL 20 MG/ML VIAL IV PRN (11:59)
[2022-09-14] MEDS: HYDROCODONE/APAP 5/325 MG TAB PO PRN (12:00)
[2022-09-14] MEDS: OLANZapine 2.5 MG TAB PO SCH (21:48)
[2022-09-15] MEDS: ENOXAPARIN 30 MG/0.3 ML SQ SCH ×2 (03:58→14:01)
[2022-09-15] MEDS: LEVOTHYROXINE SOD 0.075 MG TAB PO SCH (05:40)
[2022-09-15 06:39] LABS: Hematocrit 29.7 % (39.6-49.0); MCV 89.2 fL (80-100); MPV 8.1 fL (7.6-11.3); RBC Red Blood Cell Count 3.33 M/uL (4.33-5.43)
--- NOTE | 2022-09-15 06:48 | P.PN ---
Date of Service: 09/15/22 Subjective: +Dementia, weak states he is hard of hearing and doesnt have hearing aids confused still dependent on extensive assistance, needs constant guarding and assistance per PT afebrile ROS: 10 point ROS as noted above, otherwise negative Physical Exam: GEN: NAD, Dementia, Confused, some slurred speech HEENT: Normal conjunctiva, sclera anicteric CV: Regular rate and rhythm, no edema Pulm: Non-labored respirations on room air MSK: mild tenderness along surgical site Integumentary: dressing c/d/i Neuro: +Dementia, moves extremities, generalized weakness vitals reviewed Problem List: Fracture of right hip after fall, now s/p ORIF (09/08) Alzheimer's dementia acute delirium Hypertension Hypothyroidism Chronic anemia Oropharyngeal Dysphagia Fracture of right hip , now s/p ORIF (09/08) s/p ORIF 09/[address] Potts Pain management-[place] as needed. Continue PT as tolerated unable to stand upright with PT yesterday; needing ~max assist deconditioning, was difficulty to ambulate early on due to confusion / medicated Alzheimer's Dementia acute delirium with component of delirium haldol DCd 09/12 pt was sleeping too much / more lethargic dc zyprexa 2.5mg at bedtime (transitioned to this from haldol) remains with confusion/dementia, but delirium seems to be improving still sleepy at times more alert/following commands at times Hypertension Continue home antihypertensives. increased amlodipine 09/11 Hydralazine as needed for BP spike. Chronic anemia Hypothyroidism monitor hgb, stable Continue other home medications. Oropharyngeal Dysphagia Pured diet, nectar thickened liquids appetite improving, dc'd IVF 09/12 VTE: Lovenox Code: Full Dispo: SNF, ~2 days
[2022-09-15 06:58] LABS: Magnesium 1.7 mg/dL (1.6-2.4); Potassium 4.6 mEq/L (3.5-5.1)
[2022-09-15] MEDS ORDERED: POTASSIUM CL SA 10 MEQ TAB PO ONE (07:38)
[2022-09-15] MEDS ORDERED: MAGNESIUM SULFATE 1 gm IVPB 1 GM/100 ML BAG IV ONE (07:46)
[2022-09-15] MEDS: ENSURE SURGERY 237 ML CAN PO SCH ×2 (09:00→20:58)
[2022-09-15] MEDS: AMLODIPINE 10 MG TAB PO SCH (09:05)
--- NOTE | 2022-09-15 09:22 | RAD REPORT ---
EXAM DESCRIPTION: Samantha Single View09/15/2022 8:18 am CLINICAL HISTORY: Chest pain COMPARISON: September 07, 2022 FINDINGS: Mild bilateral interstitial lung opacities have partially resolved since prior exam Heart enlarged IMPRESSION: Improvement in CHF
[2022-09-15] MEDS: HYDROCODONE/APAP 5/325 MG TAB PO PRN (17:32)
[2022-09-16 00:08] VITALS: O2SAT 98
[2022-09-16] MEDS: ENOXAPARIN 30 MG/0.3 ML SQ SCH ×2 (03:34→14:36)
[2022-09-16] MEDS: LEVOTHYROXINE SOD 0.075 MG TAB PO SCH (06:28)
--- NOTE | 2022-09-16 06:53 | P.PN ---
Date of Service: 09/16/22 Subjective: sleeping most of day/night more clear speech today, but says he is tired and wanting to sleep weak still coughs with eating at times per nursing ROS: 10 point ROS as noted above, otherwise negative Physical Exam: GEN: NAD, Dementia, Confused HEENT: Normal conjunctiva, sclera anicteric CV: Regular rate and rhythm, no edema Pulm: Non-labored respirations on room air MSK: mild tenderness along surgical site Integumentary: dressing c/d/i Neuro: +Dementia, moves extremities, generalized weakness vitals reviewed Problem List: Fracture of right hip after fall, now s/p ORIF (09/08) Alzheimer's dementia acute delirium Hypertension Hypothyroidism Chronic anemia Oropharyngeal Dysphagia Fracture of right hip , now s/p ORIF (09/08) s/p ORIF 09/[address] Potts Pain management-[place] as needed. Continue PT as tolerated unable to stand upright with PT yesterday; needing ~max assist deconditioning, was difficult to ambulate early on due to confusion / medicated no having more weak Alzheimer's Dementia acute delirium with component of delirium haldol DCd 09/12 pt was sleeping too much / more lethargic dc'd zyprexa 2.5mg at bedtime (transitioned to this from haldol) 09/15 remains with confusion/dementia, but delirium seems to be improving still sleepy at times more alert/following commands at times 09/15 09/16 with clearer / more definitive speech pattern /answers. But sleeping most of day still discussed with nursing staff, to ensure lights on /window shade up during day Hypertension Continue home antihypertensives. increased amlodipine 09/11 Hydralazine as needed for BP spike. Chronic anemia Hypothyroidism monitor hgb, stable Continue other home medications. Oropharyngeal Dysphagia Pured diet, nectar thickened liquids appetite improving, dc'd IVF 09/12 less intake in last 24hrs, monitor closely, may need gentle IVF VTE: Lovenox, post-op prophylaxis Code: Full Dispo: SNF, ~2 days
[2022-09-16 07:46] LABS: Absolute Lymphocytes (CBC) 1.3 K/uL (0.7-4.9); Hematocrit 28.6 % (39.6-49.0); Lymphocytes % 13.1 % (15.3-44.8); MCV 88.5 fL (80-100); RBC Red Blood Cell Count 3.23 M/uL (4.33-5.43)
[2022-09-16 08:07] LABS: Magnesium 1.8 mg/dL (1.6-2.4); Potassium 4.4 mEq/L (3.5-5.1)
[2022-09-16] MEDS: AMLODIPINE 10 MG TAB PO SCH (08:27)
[2022-09-16] MEDS: ENSURE SURGERY 237 ML CAN PO SCH ×2 (08:36→21:00)
[2022-09-17] MEDS: ENOXAPARIN 30 MG/0.3 ML SQ SCH ×2 (03:00→14:55)
[2022-09-17 03:49] LABS: Absolute Lymphocytes (CBC) 1.5 K/uL (0.7-4.9); Hematocrit 26.1 % (39.6-49.0); Lymphocytes % 13.8 % (15.3-44.8); MCV 87.8 fL (80-100); MPV 8.3 fL (7.6-11.3); RBC Red Blood Cell Count 2.97 M/uL (4.33-5.43)
[2022-09-17 04:15] LABS: Magnesium 1.9 mg/dL (1.6-2.4); Potassium 4.5 mEq/L (3.5-5.1)
[2022-09-17] MEDS: LEVOTHYROXINE SOD 0.075 MG TAB PO SCH (06:13)
--- NOTE | 2022-09-17 06:42 | P.PN ---
Date of Service: 09/17/22 Subjective: doing okay today, +dementia much more alert, +more talkative today; answering questions more appropriately remains weak ROS: 10 point ROS as noted above, otherwise negative Physical Exam: GEN: NAD, Dementia HEENT: Normal conjunctiva, sclera anicteric CV: Regular rate and rhythm, no edema Pulm: Non-labored respirations on room air MSK: mild tenderness along surgical site Integumentary: dressing c/d/i Neuro: +Dementia, moves extremities, generalized weakness vitals reviewed Problem List: Fracture of right hip after fall, now s/p ORIF (09/08) Alzheimer's dementia acute delirium Hypertension Hypothyroidism Chronic anemia Oropharyngeal Dysphagia Fracture of right hip , now s/p ORIF (09/08) s/p ORIF 09/[address] Potts Pain management-[place] as needed. Continue PT as tolerated unable to stand upright with PT; needing ~max assist deconditioning, was difficult to ambulate early on due to confusion / medicated Alzheimer's Dementia acute delirium with component of delirium haldol DCd 09/12 pt was sleeping too much / more lethargic dc'd zyprexa 2.5mg at bedtime (transitioned to this from haldol) 09/15 remains with confusion/dementia, but delirium improved significantly / resolved still sleepy at times improving not requriing sitter, does need reminder he had surgery / fall risk Hypertension Continue home antihypertensives. increased amlodipine 09/11 Hydralazine as needed for BP spike. Chronic anemia Hypothyroidism monitor hgb, stable Continue other home medications. Oropharyngeal Dysphagia Pured diet, nectar thickened liquids appetite improving, dc'd IVF 09/12 VTE: Lovenox, post-op prophylaxis Code: Full Dispo: SNF, ~1-2 days
[2022-09-17] MEDS: AMLODIPINE 10 MG TAB PO SCH (08:42)
[2022-09-17] MEDS: ENSURE SURGERY 237 ML CAN PO SCH ×2 (08:42→20:19)
[2022-09-17] MEDS: HYDROCODONE/APAP 5/325 MG TAB PO PRN (12:48)
[2022-09-18] MEDS: ENOXAPARIN 30 MG/0.3 ML SQ SCH ×2 (03:37→16:01)
[2022-09-18 03:41] LABS: Hematocrit 24.6 % (39.6-49.0); MCV 87.9 fL (80-100); RBC Red Blood Cell Count 2.81 M/uL (4.33-5.43)
[2022-09-18 03:54] LABS: Magnesium 1.8 mg/dL (1.6-2.4); Potassium 4.5 mEq/L (3.5-5.1)
[2022-09-18] MEDS: LEVOTHYROXINE SOD 0.075 MG TAB PO SCH (06:00)
[2022-09-18] MEDS: ENSURE SURGERY 237 ML CAN PO SCH (09:00)
[2022-09-18] MEDS: AMLODIPINE 10 MG TAB PO SCH (11:41)
--- NOTE | 2022-09-18 12:26 | P.DS ---
Admission Date: 09/07/22 Discharge Date: 09/18/22 Disposition: TRANSFER TO SNF - REHAB Discharge Condition: FAIR Reason for Admission: Fall - Problems (1) Fall Current Visit: Yes Status: Acute (2) Fracture of right hip Current Visit: Yes Status: Acute (3) Alzheimer's dementia Current Visit: No Status: Acute (4) HTN (hypertension) Onset Date: 08/30/16 Current Visit: No Status: Acute (5) Hypothyroid Onset Date: 08/30/16 Current Visit: No Status: Acute Qualifiers: (6) Chronic anemia Current Visit: Yes Status: Acute (7) Oropharyngeal dysphagia Current Visit: Yes Status: Acute Brief History of Present Illness: 87-year-old gentleman with a history of dementia was brought to the emergency department due to a fall at home. Patient is reported to have tripped on a decorative stone near his fireplace. No reported loss of consciousness. No witnessed seizures. Imaging done in the emergency department shows comminuted right intertrochanteric fracture. Head CT negative for acute disease. Other images no other fracture. Orthopedic surgeon Dr. Potts contacted who recommended ORIF. Family agreed to ORIF. Patient was hospitalized for further management. Patient was exhibiting confusion during my examination in the ED. Hospital Course: Problem List: Fracture of right hip after fall, now s/p ORIF (09/08) Alzheimer's dementia acute delirium Hypertension Hypothyroidism Chronic anemia Oropharyngeal Dysphagia Fracture of right hip , now s/p ORIF (09/08) s/p ORIF 09/[address] Potts Pain management-[place] as needed. He received PT as tolerated Patient was deconditioning, was difficult to ambulate early on due to confusion / medicated Alzheimer's Dementia acute delirium with component of delirium. He was getting Haldol for agitation and later transitioning to Zyprexa. This was discontinued due to increased drowsiness Mental status improved and not requriing sitter. Hypertension Continue home antihypertensives. increased amlodipine 09/11 Hydralazine as needed for BP spike. Chronic anemia Hypothyroidism Hemoglobin was stable Oropharyngeal Dysphagia Pured diet, nectar thickened liquids Vital Signs/Physical Exam: Temp Pulse Resp BP Pulse Ox 97.0 F 65 18 151/67 H 98 09/18/22 08:00 09/18/22 11:41 09/18/22 08:00 09/18/22 11:41 09/18/22 08:00 General: Alert, In no apparent distress, Confused HEENT: Mucous membr. moist/pink Neck: JVD not distended Respiratory: Clear to auscultation bilaterally, Normal air movement Cardiovascular: No edema, Regular rate/rhythm, Normal S1 S2 Gastrointestinal: Normal bowel sounds, Soft and benign, Non-distended Musculoskeletal: No swelling Integumentary: No cyanosis Neurological: Normal strength at 5/5 x4 extr Laboratory Data at Discharge: WBC 8.90 thou/uL (4.3-10.9) 09/18/22 03:07 Hgb 8.3 g/dL (13.6-17.9) L 09/18/22 03:07 Hct 24.6 % (39.6-49.0) L 09/18/22 03:07 Plt Count 401 thou/uL (152-406) 09/18/22 03:07 PT 13.8 SECONDS (9.5-12.5) H 09/07/22 08:34 INR 1.25 09/07/22 08:34 Sodium 138 mEq/L (136-145) 09/18/22 03:07 Potassium 4.5 mEq/L (3.5-5.1) 09/18/22 03:07 BUN 40 mg/dL (7-18) H 09/18/22 03:07 Creatinine 1.33 mg/dL (0.70-1.30) H 09/18/22 03:07 Glucose 163 mg/dL (74-106) H 09/18/22 03:07 Phosphorus 2.4 mg/dL (2.5-4.9) L 09/12/22 03:37 Magnesium 1.8 mg/dL (1.6-2.4) 09/18/22 03:07 Total Bilirubin 0.8 mg/dL (0.2-1.0) 09/07/22 08:34 AST 14 U/L (15-37) L 09/07/22 08:34 ALT 15 U/L (16-61) L 09/07/22 08:34 Alkaline Phosphatase 86 U/L (45-117) 09/07/22 08:34 Home Medications: Melatonin 10 mg PO BEDTIME PRN PRN #60 tab 01/26/22 Levothyroxine [Synthroid*] 75 mcg PO [id number] 09/07/22 Mv-Mn/Om3/Dha/Epa/Fish/Lut/Ronen [Ocuvite Adult 50 Plus Softgel] 1 each PO 09/07/22 Amlodipine [Norvasc*] 10 mg PO DAILY tab 09/18/22 Nut.tx.comp. Immune Systm,Reg [Ensure Surgery] 237 ml PO BID can 09/18/22 Diet: AHA Activity: Ad joseph Followup: Cristian Potts MD [ACTIVE - CAN ADMIT] - Chani Ward FNP [Primary Care Provider] - (within 2 weeks) Time spent managing pt's care (in minutes): 35
[2022-09-18] MEDS ORDERED: BISACODYL 10 MG RECTAL SUPP PR ONE (13:07)
--- NOTE | 2022-09-18 13:57 | P.PN ---
Subjective Date of Service: 09/18/22 Chief Complaint: Fall Status post ORIF 09/08. No new complain. No significant agitation reported overnight. Physical Examination - Vital Signs Temperature: 97.0 F Blood Pressure: 151/67 Pulse: 65 Respirations: 18 Pulse Ox (%): 98 Assessment And Plan - Current Problems (Diagnosis) (1) Fall Current Visit: Yes Status: Acute (2) Fracture of right hip Current Visit: Yes Status: Acute (3) Alzheimer's dementia Current Visit: No Status: Acute (4) HTN (hypertension) Onset Date: 08/30/16 Current Visit: No Status: Acute (5) Hypothyroid Onset Date: 08/30/16 Current Visit: No Status: Acute Qualifiers: (6) Chronic anemia Current Visit: Yes Status: Acute (7) Oropharyngeal dysphagia Current Visit: Yes Status: Acute - Plan Physical Exam General: In no apparent distress, Dementia, Confused Neck: Supple, JVD not distended Respiratory: Clear to auscultation bilaterally, Normal air movement Cardiovascular: No edema, Regular rate/rhythm, Normal S1 S2 Gastrointestinal: Normal bowel sounds, Soft and benign, Non-distended, No tenderness Musculoskeletal: No swelling. Integumentary: No rashes, No cyanosis Neurological: Normal speech, No focal motor deficit, Dementia vitals reviewed Problem List: Fracture of right hip after fall, now s/p ORIF (09/08) Alzheimer's dementia acute delirium Hypertension Hypothyroidism Chronic anemia Oropharyngeal Dysphagia Fracture of right hip , now s/p ORIF (09/08) s/p ORIF 09/[address] Potts Pain management-[place] as needed. Continue PT as tolerated Alzheimer's Dementia acute delirium with component of delirium haldol DCd 09/12 due to increased drowsiness. dc'd zyprexa 2.5mg at bedtime due to drowsiness. Clinically improved He is no longer requriing sitter. Hypertension Continue home antihypertensives. increased amlodipine 09/11 Hydralazine as needed for BP spike. Chronic anemia Hypothyroidism Hemoglobin has been stable Continue other home medications. Oropharyngeal Dysphagia Patient has been tolerating pured diet, nectar thickened liquids and he is eating more VTE: Lovenox, post-op prophylaxis Code: Full Dispo: SNF.
[2022-09-18 16:12] VITALS: BP 159/79; TEMP 97.7
== END 2022-09-18 16:37 | DRG 481 ==
LOC: ER 07:13 → ERHOLD 11:39 → 2ND 14:13
PROVIDERS: ADMIT Internal Medicine; ATTEND Internal Medicine
PROC: 0QS604Z Reposition Right Upper Femur with Internal Fixation Device, Open Approach (ICD-10-PCS; principal; 2022-09-08 08:00)
DX: S72.101A Unspecified trochanteric fracture of right femur, initial encounter for closed fracture (principal); F02.811 Dementia in other diseases classified elsewhere, unspecified severity, with agitation; F05 Delirium due to known physiological condition; G30.9 Alzheimer's disease, unspecified; M25.521 Pain in right elbow; I10 Essential (primary) hypertension; E03.9 Hypothyroidism, unspecified; D64.9 Anemia, unspecified; H91.90 Unspecified hearing loss, unspecified ear; E11.9 Type 2 diabetes mellitus without complications; S00.211A Abrasion of right eyelid and periocular area, initial encounter; R13.12 Dysphagia, oropharyngeal phase; Z88.0 Allergy status to penicillin; Z90.49 Acquired absence of other specified parts of digestive tract; Z79.52 Long term (current) use of systemic steroids; Z79.890 Hormone replacement therapy; Z79.899 Other long term (current) drug therapy; W01.0XXA Fall on same level from slipping, tripping and stumbling without subsequent striking against object, initial encounter; Y99.9 Unspecified external cause status; Y93.9 Activity, unspecified; Y92.009 Unspecified place in unspecified non-institutional (private) residence as the place of occurrence of the external cause
CPT/HCPCS: 36415; 70450; 71045; 72125; 72170; 72192; 80048; 80053; 80069; 81001; 82947; 83735; 84100; 85014; 85018; 85025; 85027; 85610; 87635; 90471; 92526; 92610; 97110; 97116; 97161; 97530; 99285; A4216; J0360; J0690; J1630; J1650; J2370; J2405; J2704; J2800; J3010; J3475; J3480; J7030; J7042; J7050

== ENCOUNTER 2022-12-31 14:37 | Inpatient (IN) | payer OTHER ==
--- OUTSIDE RECORDS SUMMARY | 2022-12-31 14:41 | XMS REPORT | Continuity of Care Document ---
:1935 Author Organization [facility] t Address [address] [place] [address] Care Team Providers Name Role Phone Chris Malloy MD, [place] Primary Care Physician [phone] Tae Morales Attending Clinician Doctor Unassigned, [place] Attending Clinician Unavailable Zhao Potts MD Attending Clinician ZHAO POTTS Attending Clinician Unavailable Payers Payer Name Policy Type Policy Number Effective Date Expiration Date Efren martin MEDICARE PART A [id number] 2018 \T\ B 00:00:00 Problems Condition Condition [...] disease, - [facility]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 [facility] Benign Benign Problem Active Common hypertensi hypertensi Sp devorah on on - [facility] Hypothyroi Hypothyroi Problem Active C ommon dism dism Spirit - [facility] 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 - [facility] Obstructiv Obstructiv Problem Active C ommon e sleep e sleep Spirit apnea apnea - [facility] 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 - CHI with other with other St specified specified Lu s complicati complicati Me dical on on Center 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 [facility] Medicare Medicare Diagnosis Active Com mon annual annual Spirit wellness wellness - [facility]I visit, visit, St subsequent subsequent [facility] Allergies, Adverse Reactions, Alerts Allergy Allergy Status Severity Reaction(s) Onset Inactive Treating Comm ents Source Name Type Date Date Clinician PENICILL Drug Active High ITCHING Univers INS Class 1-12 ity of 00:00: [place] 00 Medical Branch Penicill Propensi Active Rash Univer s ins ty to 1-12 ity of adverse 00:00: [place] reaction 00 Medical s Branch Penicill Propensi Active Rash Method i ins ty to 1-12 st adverse 00:00: Hospita reaction 00 l s to drug Family History Family Member Diagnosis Comments Start Date Stop Date Source Natural father Diabetes [facility] Natural father Lung cancer [facility] Natural mother Heart attack [facility] Social History Social Habit Start Date Stop Date Quantity Comments Source Gender identity Universit y [facility] Sexual orientation [facility] Tobacco use and 2019-12-28 2019-12-28 Smokeless Universit y of exposure 00:00:00 00:00:00 tobacco non-user [facility] Alcohol intake 2016-12-25 2016-12-25 Current Yarsani 00:00:00 00:00:00 non-drinker of Hospital alcohol (finding) History of Social 2016-09-05 2016-09-[address] function 00:00:00 00:00:00 Hospital Cigarettes smoked 2016-07-13 2016-07-[address] current (pack per 00:00:00 00:00:00 Hospita l day) - Reported History of tobacco 1989-07-13 Cigarette Smoker Yarsani use 00:00:00 Hospital Sex Assigned At [birth year] Yarsani 00:00:00 00:00:00 Hospital Smoking Status Start Date Stop Date Source Never smoked tobacco [facility] Ex-smoker 2016-07-13 00:00:00 2016-07-13 00:00:00 [facility] Medications Ordered Filled Start Stop Current Ordering Indication Dosage Frequency Signature Comments Components Source Medication Medication Date Date Medication? Clinician (SIG) Name Name DICLOFENAC 2020- Yes [id number] APPLY TO Univers SODIUM 1 % 2-17 AFFECTED ity o f gel 00:00: AREA(S) 4 [place] [facility] Medical TIMES Branch DAILY. DICLOFENAC 2020- Yes [id number] APPLY TO Univers SODIUM 1 % 2-17 AFFECTED ity o f gel 00:00: AREA(S) 4 [place] 00 [facility] Medical TIMES Branch DAILY. DICLOFENAC 2020- Yes [id number] APPLY TO Univers SODIUM 1 % 2-17 AFFECTED ity o f gel 00:00: AREA(S) 4 [place] 00 [facility] Medical TIMES Branch DAILY. DICLOFENAC 2020- Yes [id number] APPLY TO Univers SODIUM 1 % 2-17 AFFECTED ity o f gel 00:00: AREA(S) 4 [place] 00 [facility] Medical TIMES Branch DAILY. DICLOFENAC 2020- Yes [id number] APPLY TO Univers SODIUM 1 % 2-17 AFFECTED ity o f gel 00:00: AREA(S) 4 [place] 00 [facility] Medical TIMES Branch DAILY. aMILoride 5 2018- Yes 5mg Take 5 mg U nivers mg tablet 6-26 by mouth. ity o f 15:52: [address] aspirin 81 2019-0 Yes 81mg Take 81 mg U nivers mg EC 6-26 by mouth. ity of tablet 15:52: [address] vitamin 2019-0 Yes 1000ug Take 1,000 Un moy B-12 1,000 6-26 mcg by ity of mcg tablet 15:52: mouth. [address] simvastatin 2019-0 Yes 20mg Take 20 mg Univers 20 mg 6-26 by mouth. ity of tablet 15:52: [address] vitamin e 2019- Yes 400U Take 400 Univ ers 400 unit 6-26 Units by ity of capsule 15:52: mouth. [address] metoprolol 2019-0 Yes 25mg Take 25 mg U nivers tartrate 25 6-26 by mouth 2 it y of mg tablet 15:52: (two) [place] [id number] times Medical daily. Branch aMILoride 5 2019-0 Yes 5mg Take 5 mg U nivers mg tablet 6-26 by mouth. ity o f 15:52: [address] aspirin 81 2019-0 Yes 81mg Take 81 mg U nivers mg EC 6-26 by mouth. ity of tablet 15:52: [address] vitamin 2019-0 Yes 1000ug Take 1,000 Un moy B-12 1,000 6-26 mcg by ity of mcg tablet 15:52: mouth. [address] simvastatin 2019-0 Yes 20mg Take 20 mg Univers 20 mg 6-26 by mouth. ity of tablet 15:52: [address] vitamin e 2019-0 Yes 400U Take 400 Univ ers 400 unit 6-26 Units by ity of capsule 15:52: mouth. [address] metoprolol 2019-0 Yes 25mg Take 25 mg U nivers tartrate 25 6-26 by mouth 2 it y of mg tablet 15:52: (two) [place] [id number] times Medical daily. Branch aMILoride 5 2019-0 Yes 5mg Take 5 mg U nivers mg tablet 6-26 by mouth. ity o f 15:52: [address] aspirin 81 2019-0 Yes 81mg Take 81 mg U nivers mg EC 6-26 by mouth. ity of tablet 15:52: [address] vitamin 2019-0 Yes 1000ug Take 1,000 Un moy B-12 1,000 6-26 mcg by ity of mcg tablet 15:52: mouth. [address] simvastatin 2019-0 Yes 20mg Take 20 mg Univers 20 mg 6-26 by mouth. ity of tablet 15:52: [address] vitamin e 2019-0 Yes 400U Take 400 Univ ers 400 unit 6-26 Units by ity of capsule 15:52: mouth. [address] metoprolol 2019-0 Yes 25mg Take 25 mg U nivers tartrate 25 6-26 by mouth 2 it y of mg tablet 15:52: (two) [place] [id number] times Medical daily. Branch aMILoride 5 2019-0 Yes 5mg Take 5 mg U nivers mg tablet 6-26 by mouth. ity o f 15:52: [address] aspirin 81 2019-0 Yes 81mg Take 81 mg U nivers mg EC 6-26 by mouth. ity of tablet 15:52: [address] vitamin 2019-0 Yes 1000ug Take 1,000 Un moy B-12 1,000 6-26 mcg by ity of mcg tablet 15:52: mouth. [address] simvastatin 2019-0 Yes 20mg Take 20 mg Univers 20 mg 6-26 by mouth. ity of tablet 15:52: [address] vitamin e 2019-0 Yes 400U Take 400 Univ ers 400 unit 6-26 Units by ity of capsule 15:52: mouth. [address] metoprolol 2019-0 Yes 25mg Take 25 mg U nivers tartrate 25 6-26 by mouth 2 it y of mg tablet 15:52: (two) [place] [id number] times Medical daily. Branch aMILoride 5 Yes 5mg Take 5 mg U nivers mg tablet 6-26 by mouth. ity o f 15:52: [address] aspirin 81 2019-0 Yes 81mg Take 81 mg U nivers mg EC 6-26 by mouth. ity of tablet 15:52: [address] vitamin 2019-0 Yes 1000ug Take 1,000 Un moy B-12 1,000 6-26 mcg by ity of mcg tablet 15:52: mouth. [address] simvastatin 2019-0 Yes 20mg Take 20 mg Univers 20 mg 6-26 by mouth. ity of tablet 15:52: [address] vitamin e 2019-0 Yes 400U Take 400 Univ ers 400 unit 6-26 Units by ity of capsule 15:52: mouth. [address] metoprolol 2019-0 Yes 25mg Take 25 mg U nivers tartrate 25 6-26 by mouth 2 it y of mg tablet 15:52: (two) [place] [id number] times Medical daily. Branch methylPREDN 2019-0 Yes [id number] Take by Univers ISolone [phone]- [phone] mouth ity of (MEDROL, 00:00: SEE-INSTRU [place] DENIA,) 4 mg 00 CTIONS. Medica l tablets follow Branch package directions methylPREDN 2019-0 Yes [id number] Take by Univers ISolone 6-26 [phone] mouth ity of (MEDROL, 00:00: SEE-INSTRU Dor[place] as DENIA,) 4 mg 00 CTIONS. Medica l tablets follow Branch package directions methylPREDN Yes [id number] Take by [facility] [phone] mouth ity of (MEDROL, 00:00: SEE-INSTRU Doron as DENIA,) 4 mg 00 CTIONS. Medica l tablets follow Branch package directions methylPREDN Yes [id number] Take by [facility] 6 [phone] mouth ity of (MEDROL, 00:00: SEE-INSTRU Dor[place] as DENIA,) 4 mg 00 CTIONS. Medica l tablets follow Branch package directions methylPREDN Yes [id number] Take by [facility] ISolone 09-17 [phone] mouth ity of (MEDROL, 00:00: SEE-INSTRU Dor[place] as DENIA,) 4 mg 00 CTIONS. Medica l tablets follow Branch package directions levothyroxi Yes TAKE 1 Univ ers ne 100 mcg 4-28 TABLET BY ity of tablet 00:00: MOUTH [place] 00 EVERY DAY Medical ON EMPTY Branch STOMACH IN THE MORNING levothyroxi Yes TAKE 1 Univ ers ne 100 mcg 4-28 TABLET BY ity of tablet 00:00: MOUTH [place] 00 EVERY DAY Medical ON EMPTY Branch STOMACH IN THE MORNING levothyroxi Yes TAKE 1 Univ ers ne 100 mcg 4-28 TABLET BY ity of tablet 00:00: MOUTH [place] 00 EVERY DAY Medical ON EMPTY Branch STOMACH IN THE MORNING levothyroxi Yes TAKE 1 Univ ers ne 100 mcg 4-28 TABLET BY ity of tablet 00:00: MOUTH [place] 00 EVERY DAY Medical ON EMPTY Branch STOMACH IN THE MORNING levothyroxi Yes TAKE 1 Univ ers ne 100 mcg 4-28 TABLET BY ity of tablet 00:00: MOUTH [place] 00 EVERY DAY Medical ON EMPTY Branch STOMACH IN THE MORNING Belsomra Belsomra Yes Goldy 1 tablet Common 09-27 Marlon at bedtime Spirit 00:00: as needed - [facility] 00 [facility] AMILoride 2016-03 Yes 5mg QD Take 5 [...] a 44 l furosemide Yes TAKE 1 Unive rs 20 mg 6-27 TABLET BY ity of tablet 00:00: MOUTH [place] 00 EVERY DAY Medical NEEDED Branch FOR EDEMA furosemide Yes TAKE 1 Unive rs 20 mg 6-27 TABLET BY ity of tablet 00:00: MOUTH [place] 00 EVERY DAY Medical NEEDED Branch FOR EDEMA furosemide Yes TAKE 1 Unive rs 20 mg 6-27 TABLET BY ity of tablet 00:00: MOUTH [place] 00 EVERY DAY Medical NEEDED Branch FOR EDEMA furosemide Yes TAKE 1 Unive rs 20 mg 6-27 TABLET BY ity of tablet 00:00: MOUTH [place] 00 EVERY DAY Medical NEEDED Branch FOR EDEMA furosemide Yes TAKE 1 Unive rs 20 mg 6-27 TABLET BY ity of tablet 00:00: MOUTH [place] 00 EVERY DAY Medical NEEDED Branch FOR EDEMA furosemide Yes TAKE 1 Metho [...] times a l coated week. tablet cyanocobala 2017-0 Yes 1000ug QD Take 1,000 Methodi min 1000 4-[address] MCG tablet 13:34: mouth Hospit a 44 daily. l vitamin E 2017-0 Yes 400U QD Take 400 Meth shanta 400 UNIT 4-[address] capsule 13:34: mouth Hospita 44 daily. l calcitriol 2017-0 Yes .25ug Q.5W Take 0.25 M ethodi (ROCALTROL) 4-[address] 0.25 MCG 13:34: mouth 2 Hospit a capsule 44 (two) l times a week. simvastatin 2017-0 Yes 20mg QD Take 20 mg Methodi (ZOCOR) 20 4-[address] MG tablet 13:34: nightly. Hosp laura 44 l omega-3 2017-0 Yes 1g Q.5D Take 1 g Method i acid ethyl 4-[address] esters 13:34: (two) Hospita (LOVAZA) 1 44 times a l gram day. capsule aspirin 2017-0 Yes 81mg Q.5W Take 81 mg Meth shanta (ECOTRIN) 4-[address] 81 MG 13:34: (two) Hospita enteric 44 times a l coated week. tablet cyanocobala 2017-0 Yes 1000ug QD Take 1,000 Methodi min 1000 4-[address] MCG tablet 13:34: mouth Hospit a 44 daily. l vitamin E 2017-0 Yes 400U QD Take 400 Meth shanta 400 UNIT 4-[address] capsule 13:34: mouth Hospita 44 daily. l calcitriol 2017-0 Yes .25ug Q.5W Take 0.25 M ethodi (ROCALTROL) 4-[address] 0.25 MCG 13:34: mouth 2 Hospit a capsule 44 (two) l times a week. simvastatin 2017-0 Yes 20mg QD Take 20 mg Methodi (ZOCOR) 20 4-[address] MG tablet 13:34: nightly. Hosp laura 44 l omega-3 2017-0 Yes 1g Q.5D Take 1 g Method [...] capsule 13:34: mouth Hospita 44 daily. l Cholecalcif Yes Take by Uni vers ariadna, 3-22 mouth. ity of Vitamin D3, 00:00: [place] 5,000 unit 00 Medical capsule Branch Cholecalcif Yes Take by Uni vers ariadna, 3-22 mouth. ity of Vitamin D3, 00:00: [place] 5,000 unit 00 Medical capsule Branch Cholecalcif Yes Take by Uni vers ariadna, 3-22 mouth. ity of Vitamin D3, 00:00: [place] 5,000 unit 00 Medical capsule Branch Cholecalcif Yes Take by Uni vers ariadna, 3-22 mouth. ity of Vitamin D3, 00:00: [place] 5,000 unit 00 Medical capsule Branch Cholecalcif 2016- Yes Take by Uni vers ariadna, 3-22 mouth. ity of Vitamin D3, 00:00: [place] 5,000 unit 00 Medical capsule Branch cholecalcif Yes QD Take by Met sindii ariadna, 3-[address] vitamin D3, 00:00: daily. Hosp laura (VITAMIN 00 l D3) 5,000 unit capsule cholecalcif Yes QD Take by Met hodi ariadna, 3-[address] vitamin D3, 00:00: daily. Hosp laura (VITAMIN 00 l D3) 5,000 unit capsule cholecalcif Yes QD Take by Met sindii ariadna, 3-[address] vitamin D3, 00:00: daily. Hosp [facility] (VITAMIN 00 l D3) 5,000 unit capsule bumetanide 2015-03 Yes 1mg Take 1 mg Un moy 1 mg tablet 2-20 by mouth. ity of 00:00: [place] 00 Medical Branch bumetanide 2015-03 Yes 1mg Take 1 mg Un moy 1 mg tablet 2-20 by mouth. ity of 00:00: [place] [facility] bumetanide 2015-03 Yes 1mg Take 1 mg Un moy 1 mg tablet 2-20 by mouth. ity of 00:00: [place] [facility] bumetanide 2015-03 Yes 1mg Take 1 mg Un moy 1 mg tablet 2-20 by mouth. ity of 00:00: [place] [facility] bumetanide 2015-03 Yes 1mg Take 1 mg Un moy 1 mg tablet 2-20 by mouth. ity of 00:00: [place] [facility] BUMETanide 2015-03 Yes 1mg QD Take 1 [...] tablet 00:00: once Hospita 00 daily. l Vitamin Vitamin Yes Goldy 1 tablet Com mon B-12 B-12 Marlon [facility] Namzaric Namzaric Yes Goldy 1 capsule Common Marlon in the [facility] evening [facility] Simvastatin Simvastatin Yes Goldy 1 tablet Common Marlon in the [facility] evening [facility] Fluticasone Fluticasone Yes Goldy 1 spray in Common Propionate Propionate Marlon each Sp devorah nostril [facility] Indomethaci Indomethaci Yes Goldy TAKE ONE Common n n Marlon CAPSULE BY [facility] MOUTH [place] [employer] TWICE A [facility] DAY [facility] NEEDED FOR Medical PAIN WITH Center FOOD Trintellix Trintellix Yes Goldy 1 tablet Common Marlon [facility] Claritin-D Claritin-D Yes Goldy 1 tablet Common 12 Hour 12 Hour Marlon as needed [facility] rit [facility] Levothyroxi Levothyroxi Yes Goldy 1 tablet Common ne Sodium ne Sodium Marlon on an Spi rit empty - CHI stomach in [facility] Vitamin D3 Vitamin D3 Yes Goldy 1 capsule Common Marlon [facility] Melatonin Melatonin Yes Goldy 1 tablet Common Marlon at bedtime Spirit as needed - CHI with food [facility] Aspirin Aspirin Yes Goldy 1 tablet Com mon Adult Low Adult Low Marlon Spir it Dose Dose - [facility] Bumetanide Bumetanide Yes Goldy not C ommon Marlon defined [facility] Shamrock 3 Shamrock 3 Yes Goldy 1 capsule Co mmon Marlon [facility] Lopressor Lopressor Yes Goldy 1 tablet Common Marlon with food [facility] Donepezil Donepezil Yes Goldy 1 tablet Common HCl HCl Marlon at bedtime [facility] Pioglitazon Pioglitazon Yes Goldy 1 tablet Common e HCl e HCl Marlon [facility] Calcitriol Calcitriol Yes Goldy TAKE ONE Common Marlon CAPSULE BY Spirit MOUTH - CHI EVERY DAY [facility] Vitamin E Vitamin E Yes Goldy 1 tablet Common Marlon [facility] coracedin coracedin Yes Goldy not Com mon hpb hpb Marlon defined [facility] Liothyronin Liothyronin Yes Goldy 1/2 tablet Common e Sodium e Sodium Marlon on an Spiri t empty - CHI stomach [facility] Flonase Flonase Yes Goldy 1 spray in C ommon Marlon each [facility] nostril - [facility] Procedures Procedure Date / Time Performing Clinician Source Performed EXTERNAL PROVIDER 2022-10-22 05:01:00 Doctor Unassigned, No Univ [facility] RECORDS Name Medical Branch RADIOLOGY DOCUMENTATION 2022-09-10 05:01:00 Doctor Unassigned, N o [facility] Name Medical Branch Plan of Care Planned Activity Planned Date Details Comments Source Future Scheduled 2022-11-26 COVID-19 VACCINE (#1) [facility] Test 01:13:56 [code = COVID-19 VACCINE (#1)] Future Scheduled 2022-11-26 SHINGLES VACCINES (1 Met [facility] Test 01:13:56 of 2) [code = SHINGLES VACCINES (1 of 2)] Future Scheduled 2022-11-26 65+ PNEUMOCOCCAL Method[facility] Hospital Test 01:13:56 VACCINE (1 - PCV) [code = 65+ PNEUMOCOCCAL VACCINE (1 - PCV)] Future Scheduled 2022-11-26 INFLUENZA VACCINE (#1) [facility] Hospital Test 01:13:56 [code = INFLUENZA VACCINE (#1)] Future Scheduled 2022-09-06 COVID-19 VACCINE (#1) [facility] Test 21:04:57 [code = COVID-19 VACCINE (#1)] Future Scheduled 2022-09-06 SHINGLES VACCINES (1 Met [facility] Test 21:04:57 of 2) [code = SHINGLES VACCINES (1 of 2)] Future Scheduled 2022-09-06 65+ [facility]AL [facility] Test 21:04:57 VACCINE (1 - PCV) [code = 65+ PNEUMOCOCCAL VACCINE (1 - PCV)] Future Scheduled 2022-09-06 INFLUENZA VACCINE Method [facility] Test 21:04:57 [code = INFLUENZA VACCINE] Future Scheduled 2021-11-23 HEPATITIS B VACCINES Met [facility] Test 13:52:40 (1 of 3 - 3-dose series) [code = HEPATITIS B VACCINES (1 of 3 - 3-dose series)] Future Scheduled 2021-11-23 COVID-19 VACCINE (#1) [facility] Test 13:52:40 [code = COVID-19 VACCINE (#1)] Future Scheduled 2021-11-23 SHINGLES VACCINES (1 Met [facility] Test 13:52:40 of 2) [code = SHINGLES VACCINES (1 of 2)] Future Scheduled 2021-11-23 65+ [facility]OCOCCAL [facility] Test 13:52:40 VACCINE (1 - PCV) [code = 65+ PNEUMOCOCCAL VACCINE (1 - PCV)] Future Scheduled 2021-11-23 INFLUENZA VACCINE Method [facility] Test 13:52:40 [code = INFLUENZA VACCINE] Encounters Start End Encounter Admission Attending Care Care Encounter Source Date/Time Date/Time Type Type Clinicians Facility Department ID 2022-11-11 2022-11-11 ONESIMO Fried [id number] Univers 00:00:00 00:00:00 Tae S HEALTH [id number] it [facility] [id number] Doron as [place]?BLEA [phone] Nc kwabena [facility] [address] MEDICAL OFFICE [facility] 2022-10-22 2022-10-22 Orders Doctor CURTIS [id number] Univers 00:00:00 00:00:00 Only Unassigned, YONIS [id number] ity of [place] [facility] [id number] Doron as [phone] [address] 2022-09-10 2022-09-10 [facility] [id number] Univers 00:00:00 00:00:00 Zhao Gonsales HEALTH [id number] it y of [employer] [id number] Doron as [place]?BLEA [id number] N[place] [address] 2022-09-10 2022-09-10 Orders Doctor CURTIS [id number] Univers 00:00:00 00:00:00 Only Unassigned, YONIS [id number] ity of [place] [facility] [id number] Doron as [id number] [address] 2022-09-08 2022-09-08 Critical access hospital [id number] Univers 16:10:00 23:59:00 Encounter Zhao Ilda [facility]AH'[facility] [id number] ity of HOSPITAL [id number] Doron as [id number] [address] 2022-09-08 2022-09-08 [facility] [id number] Univers 00:00:00 23:59:00 ZHAO talavera [facility] 2019-12-28 2019-12-28 Outpatient Swetha POTTS [facility] [id number] Univers 15:15:00 15:15:00 ZHAO talavera [facility] 2018-11-25 2018-11-25 Outpatient [facility] [id number] Common 15:15:00 15:15:[address] [facility] 2018-05-26 2018-05-26 [facility] [id number] Common 10:00:00 10:00:[address] [facility] 2018-03-27 2018-03-27 Outpatient [facility] [id number] Common 10:00:00 10:00:[address] [facility] 2017-12-24 2017-12-24 Outpatient [facility] [id number] Common 10:15:00 10:15:00 [facility] [address] Spir it Road [facility] 2017-11-26 2017-11-26 Outpatient [facility] [id number] Common 16:07:00 16:07:[address] [facility] 2017-09-27 2017-09-27 Outpatient [facility] [id number] Common 15:03:00 15:03:[address] [facility] 2017-09-27 2017-09-27 Outpatient [facility] [id number] Common 12:09:00 12:09:[address] [facility] 2017-09-23 2017-09-23 Outpatient [facility] [id number] Common 10:30:00 10:30:[address] [facility] 2017-08-14 2017-08-14 Outpatient [facility] [id number] Common 13:15:00 13:15:[address] [facility] Results This patient has no known results.
[2022-12-31] MEDS ORDERED: MORPHINE 2 MG/ML SYR ONE ×2 (15:04→15:48)
[2022-12-31 15:19] LABS: Hematocrit 30.4 % (39.6-49.0); MCV 87.3 fL (80-100); MPV 7.5 fL (7.6-11.3); Platelets 323 thou/uL (152-406); RBC Red Blood Cell Count 3.48 M/uL (4.33-5.43)
[2022-12-31 15:23] LABS: Protime INR 1.15
[2022-12-31 15:31] LABS: Potassium 4.5 mEq/L (3.5-5.1)
[2022-12-31 15:32] LABS: Albumin 3.2 g/dL (3.4-5.0); Bilirubin Total 0.5 mg/dL (0.2-1.0); Protein, Total 7.8 g/dL (6.4-8.2)
--- NOTE | 2022-12-31 16:47 | RAD REPORT ---
EXAM DESCRIPTION: CT - Pelvis Wo Cont - 12/31/2022 3:04 pm CLINICAL HISTORY: TRAUMA COMPARISON: Pelvis Wo Cont dated 09/07/2022; Pelvis dated 09/08/2022 TECHNIQUE: Thin cut axial CT imaging of the pelvis was performed without IV contrast. Multiplanar re formats were generated and reviewed. All CT scans are performed using dose optimization technique as appropriate and may include automated exposure control or mA/KV adjustment according to patient size. FINDINGS: Comminuted, impacted left femoral intertrochanteric fracture, new since the prior exam. Changes of partial healing, with early callus formation along the impacted internally fixated right f emoral intertrochanteric fracture. Hardware in satisfactory alignment. The visualized pelvic ring appears intact. Multilevel degenerative changes of the included lower lumbar spine, with bilateral L5 pars interartic ularis defects. No dilated bowel loops or bowel wall thickening. No free air, free fluid or inflammatory stranding. N o hernia, mass or bulky lymphadenopathy. The urinary bladder is without significant finding. IMPRESSION: Comminuted, impacted, left femoral intertrochanteric fracture, new since the prior exam, and appears acute. Changes of partial healing of internally fixated right femoral intertrochanteric fracture. Fixation h ardware is satisfactory alignment.
--- NOTE | 2022-12-31 17:09 | EDPHYS ---
Physician Documentation [facility] Name: Wayne Arredondo Age: 87 yrs Sex: Male : 1935 Arrival Date: 12/31/2022 Time: 14:37 Bed 4 Private MD: ED Physician Jeancarlos Prabhakar HPI: 12/31 15:18 This 87 yrs old Male presents to ER via EMS with complaints of Fall, hip pain. rt 15:18 History limited due to patient with advanced dementia. Patient had reported fall this rt morning while transferring from his wheelchair landing on his left side. There is no reports of any head trauma. Patient was complaining of a left hip pain, x-rays revealed a possible hip fracture on the left side. Denies other pain, other injuries or other acute complaints, symptoms are moderate severity, aching nature, nonradiating, no other aggravating elevating factors.. Historical: - Allergies: 14:43 PENICILLINS; ko1 - PMHx: 14:43 Alzheimer's disease; diabetes mellitus; Hypertensive disorder; thyroid disease; ko1 - Immunization history:: Adult Immunizations unknown. - Social history:: Smoking status: unknown. ROS: 15:18 MS/extremity: Positive for pain, rt 15:18 Unable to obtain ROS due to baseline dementia, Exam: 15:18 Constitutional: This is a well developed, well nourished patient who is awake, alert, rt and in no acute distress. Neck: Trachea midline, no thyromegaly or masses palpated, and no cervical lymphadenopathy. Supple, full range of motion without nuchal rigidity, or vertebral point tenderness. No Meningismus. Chest/axilla: Normal chest wall appearance and motion. Nontender with no deformity. No lesions are appreciated. Cardiovascular: Regular rate and rhythm with a normal S1 and S2. No gallops, murmurs, or rubs. Normal PMI, no JVD. No pulse deficits. Respiratory: Lungs have equal breath sounds bilaterally, clear to auscultation and percussion. No rales, rhonchi or wheezes noted. No increased work of breathing, no retractions or nasal flaring. Abdomen/GI: Soft, non-tender, with normal bowel sounds. No distension or tympany. No guarding or rebound. No evidence of tenderness throughout. Skin: Warm, dry with normal turgor. Normal color with no rashes, no lesions, and no evidence of cellulitis. 15:18 Head/face: No bruising or other external evidence of trauma. 15:18 ECG was reviewed by the Attending Physician. 15:18 Musculoskeletal/extremity: Tenderness to the left hip, no deformities noted, pulses, motor, sensation intact. Vital Signs: 14:40 BP 116 / 80; Pulse 79; Resp 16; Temp 97.8; Pulse Ox 99% ; ko1 15:00 BP 168 / 89; Pulse 93; Resp 18; Pulse Ox 96% ; ko1 18:31 BP 166 / 89; Pulse 88; Resp 16; Pulse Ox 98% ; ko1 19:10 BP 162 / 107; Pulse 92; Resp 16; Pulse Ox 95% on R/A; jb4 MDM: 14:41 Patient medically screened. rt 17:09 Differential Diagnosis Hip fracture, contusion. Data reviewed: vital signs, nurses rt notes, diagnostic data from outside facility, Reviewed images and radiology report from outside x-ray, radiologic studies. Consideration of Admission/Observation Patient was admitted/placed on observation. Management of patient was discussed with the following: Hospitalist: Agrees to admit. Press Catcher: Discussed with Dr. Potts with orthopedic surgery, will evaluate patient for surgery.. I considered the following discharge prescriptions or medication management in the emergency department Medications were administered in the Emergency Department. See MAR. Independent interpretation of the following test(s) in the Emergency Department X-Ray: My interpretation is Hip fractures and interpretation of x-ray images. Care significantly affected by the following chronic conditions: Diabetes. Counseling: I had a detailed discussion with the patient and/or guardian regarding the historical points, exam findings, and any diagnostic results supporting the discharge/admit diagnosis, radiology results, the need for further work-up and treatment in the hospital. 12/31 14:42 Order name: CBC with Diff; Complete Time: 15:30 rt 12/31 14:42 Order name: CMP; Complete Time: 15:45 rt 12/31 14:42 Order name: PT-INR; Complete Time: 15:30 rt 12/31 14:42 Order name: Ptt, Activated; Complete Time: 15:30 rt 12/31 14:53 Order name: CT Pelvis wo Cont; Complete Time: 16:48 rt 12/31 18:19 Order name: Chest Single View XRAY; Complete Time: 19:03 la1 12/31 14:42 Order name: EKG; Complete Time: 14:42 rt 12/31 14:42 Order name: EKG - Nurse/Tech; Complete Time: 14:53 rt EC:18 Rate is 84 beats/min. Rhythm is regular, Normal Sinus Rhythm with No ectopy. QRS [place] rt is Normal. [place] interval is normal. QRS interval is normal. QT interval is normal. No Q waves. Clinical impression: NSR w/ Non-specific ST/T Changes. Administered Medications: 14:56 Drug: morphine IVP or IV 2 mg IVP once over 4 mins Route: IVP; Infused Over: 4 mins; ko1 Site: right forearm; 17:47 Follow up: Response: No adverse reaction; Pain is unchanged, physician notified kc6 15:41 Drug: morphine IVP or IV 2 mg IVP once over 4 mins Route: IVP; Infused Over: 4 mins; cm10 Site: right forearm; 17:47 Follow up: Response: No adverse reaction; Pain is decreased; RASS: Alert and Calm (0) 6 17:55 Drug: NS 0.9% IV 500 ml IV at bolus once Route: IV; Rate: bolus; Site: right forearm; kc6 17:55 Drug: NS 0.9% IV 1000 ml IV at 75 ml/hr continuous Route: IV; Rate: 75 ml/hr; Site: kc6 right forearm; Disposition Summary: 12/31/22 17:09 Hospitalization Ordered Notes: Hospitalization Status: Inpatient Admission rt Provider: Salas Montero rt Location: Telemetry/[facility] (Inpatient) rt Condition: Stable rt Problem: new rt Symptoms: are unchanged rt Bed/Room Type: Standard rt Room Assignment: 231(12/31/22 19:10) dw Diagnosis - Left femoral neck fracture rt Forms: - Medication Reconciliation Form rt - SBAR form rt - Leadership Thank You Letter rt Signatures: Dispatcher [employer] Rina Goodrich RN RN dw Zackary Blanc FNP-C FNP-Janine Louie RN RN kc6 Elen Corley RN RN ko1 Jeancarlos Prabhakar MD MD rt Angle Moya RN RN cm10 Corrections: (The following items were deleted from the chart) 19:10 17:09 rt dw
--- NOTE | 2022-12-31 17:09 | ER ---
Nurse's Notes [facility] Name: Wayne Arredondo Age: 87 yrs Sex: Male : 1935 Arrival Date: 12/31/2022 Time: 14:37 Bed 4 Private MD: Diagnosis: Left femoral neck fracture Presentation: 12/31 14:40 Chief complaint: EMS states: patient fell out of his wheelchair, has a fractured left ko1 hip. Coronavirus screen: At this time, the client does not indicate any symptoms associated with coronavirus-19. Ebola Screen: No symptoms or risks identified at this time. Initial Sepsis Screen: Does the patient meet any 2 criteria? No. Patient's initial sepsis screen is negative. Does the patient have a suspected source of infection? No. Patient's initial sepsis screen is negative. Risk Assessment: Do you want to hurt yourself or someone else? Patient reports no desire to harm self or others. Onset of symptoms was December 31, 2022. 14:40 Method Of Arrival: EMS: [facility] ko1 14:40 Acuity: JON 2 ko1 Triage Assessment: 14:43 General: Appears in no apparent distress. uncomfortable, Behavior is cooperative, ko1 appropriate for age. Pain: Complains of pain in left hip. Historical: - Allergies: 14:43 PENICILLINS; ko1 - PMHx: 14:43 Alzheimer's disease; diabetes mellitus; Hypertensive disorder; thyroid disease; ko1 - Immunization history:: Adult Immunizations unknown. - Social history:: Smoking status: unknown. Screenin:00 [facility] ED Fall Risk Assessment (Adult) History of falling in the last 3 months, ko1 including since admission Yes- single mechanical fall (1 pt) Confusion or Disorientation Yes (5 pts) Intoxicated or Sedated No (0 pts) Impaired Gait Yes (1 pt) Mobility Assist Device Used Yes (1 pt) Altered Elimination No (0 pt) Score/Fall Risk Level 3 or more points = High Risk Oriented to surroundings, Maintained a safe environment, Educated pt \T\ family on fall prevention, incl call for assistance when getting out of bed, Assessed \T\ reinforced patient's understanding of fall precautions, Provided non-skid footwear, Hourly rounding (assess needs \T\ fall precautionary measures) done, Used ambulatory aids as needed (educated on \T\ assisted with), Used gait belt as appropriate Implemented a Fall Risk Plan of Care, Apply high fall risk patient identification: yellow non skid footwear/ fall signage, Offered frequent toileting (1:1 observation). Abuse screen: Denies threats or abuse. Denies injuries from another. Nutritional screening: No deficits noted. Tuberculosis screening: No symptoms or risk factors identified. Assessment: 15:00 General: Appears distressed, uncomfortable, Behavior is cooperative, anxious. Pain: ko1 Complains of pain in left hip/pelvis. Neuro: Level of Consciousness is awake, alert, confused, Oriented to person. Cardiovascular: No deficits noted. Respiratory: No deficits noted. GI: No deficits noted. : No deficits noted. EENT: No deficits noted. Derm: No deficits noted. Musculoskeletal: Circulation, motion, and sensation intact. Reports pain in left hip. Injury Description:. 19:11 Reassessment: Pt is oriented to self. respirations are even and unlabored with no s/s jb4 of pain or distress noted. Vital Signs: 14:40 BP 116 / 80; Pulse 79; Resp 16; Temp 97.8; Pulse Ox 99% ; ko1 15:00 BP 168 / 89; Pulse 93; Resp 18; Pulse Ox 96% ; ko1 18:31 BP 166 / 89; Pulse 88; Resp 16; Pulse Ox 98% ; ko1 19:10 BP 162 / 107; Pulse 92; Resp 16; Pulse Ox 95% on R/A; jb4 ED Course: 14:40 Patient arrived in ED. bd 14:40 Elen Corley RN is Primary Nurse. ko1 14:41 Jeancarlos Prabhakar MD is Attending Physician. rt 14:43 Triage completed. ko1 14:43 Arm band placed on right wrist. Patient placed in an exam room, on a stretcher, on ko1 electronic device monitor, on pulse oximetry, Patient notified of wait time. 15:00 Patient has correct armband on for positive identification. Fall risk band placed. ko1 Placed in gown. Bed in low position. Call light in reach. Side rails up X2. Provided Education on:. Client placed on continuous cardiac and pulse oximetry monitoring. NIBP monitoring applied. telemetry monitor on. Door closed. Noise minimized. Lights dimmed. Warm blanket given. 15:03 EKG done, by ED staff, reviewed by Jeancarlos Prabhakar MD. em1 15:04 Ptt, Activated Sent. cm10 15:04 PT-INR Sent. cm10 15:04 CMP Sent. cm10 15:04 CBC with Diff Sent. cm10 15:04 Initial lab(s) drawn, by me, sent to lab. Inserted saline lock: 20 gauge in right cm10 forearm, using aseptic technique. Blood collected. 15:06 CT Pelvis wo Cont In Process Unspecified. EDMS 17:08 Salas Montero MD is Hospitalizing Provider. rt 18:35 Chest Single View XRAY In Process Unspecified. EDMS 20:05 No provider procedures requiring assistance completed. Patient admitted, IV remains in bp place. Administered Medications: 14:56 Drug: morphine IVP or IV 2 mg IVP once over 4 mins Route: IVP; Infused Over: 4 mins; ko1 Site: right forearm; 17:47 Follow up: Response: No adverse reaction; Pain is unchanged, physician notified kc6 15:41 Drug: morphine IVP or IV 2 mg IVP once over 4 mins Route: IVP; Infused Over: 4 mins; cm10 Site: right forearm; 17:47 Follow up: Response: No adverse reaction; Pain is decreased; RASS: Alert and Calm (0) kc6 17:55 Drug: NS 0.9% IV 500 ml IV at bolus once Route: IV; Rate: bolus; Site: right forearm; kc6 17:55 Drug: NS 0.9% IV 1000 ml IV at 75 ml/hr continuous Route: IV; Rate: 75 ml/hr; Site: kc6 right forearm; Outcome: 17:09 Decision to Hospitalize by Provider. rt 21:03 Patient left the ED. bp Signatures: Dispatcher [employer] EDMS Lanie Cuba Eric em1 Russ Gonzales RN RN jb4 Hunter Candelaria RN RN bp Janine Sexton RN RN kc6 Elen Corley, VERNA RN ko1 Jeancarlos Prabhakar MD MD rt Angle Moya RN RN cm10 Corrections: (The following items were deleted from the chart) 19:18 19:10 BP 132 / 70; Pulse 89bpm; Resp 16bpm; Pulse Ox 95% RA; jb4 jb4
[2022-12-31] MEDS ORDERED: NA CHLORIDE 0.9% 1,000 ML ONE (18:02)
[2022-12-31] MEDS ORDERED: NA CHLORIDE 0.9% 500 ML ONE (18:03)
--- NOTE | 2022-12-31 18:46 | P.HP ---
Certification for Inpatient Patient admitted to: Inpatient With expected LOS: >2 Midnights Patient will require the following post-hospital care: None Practitioner: I am a practitioner with admitting privileges, knowledge of patient current condition, hospital course, and medical plan of care. Services: Services provided to patient in accordance with Admission requirements found in Title 42 Section 412.3 of the Code of Federal Regulations Patient History Date of Service: 12/31/22 Reason for admission: Left hip fracture, ALEXIS History of Present Illness: 87-year-old male with history of dementia, hypertension, hyperlipidemia, hypothyroidism presents emergency department after having a fall transferring from wheelchair. Patient with advanced dementia, oriented x1. He was evaluated in the emergency department his labs are significant for white blood cell count 17.1 hemoglobin 10.1 hematocrit 30.4 sodium 133 creatinine 2.[address] baseline around [address] pelvis without contrast was performed which revealed comminuted, impacted, left femoral intertrochanteric fracture. ED discussed case with orthopedic surgery Dr. Potts who will see patient in hospital. Patient has been afebrile during his stay thus far, no source of infection identified currently, chest x-ray and UA pending. Allergies Penicillins Allergy (Verified 01/25/22 21:12) Itching/Hives/Rash Home Medications: Melatonin 10 mg PO BEDTIME PRN PRN #60 tab 01/26/22 Levothyroxine [Synthroid*] 75 mcg PO [id number] 09/07/22 Mv-Mn/Om3/Dha/Epa/Fish/Lut/Ronen [Ocuvite Adult 50 Plus Softgel] 1 each PO 09/07/22 Amlodipine [Norvasc*] 10 mg PO DAILY tab 09/18/22 Nut.tx.comp. Immune Systm,Reg [Ensure Surgery] 237 ml PO BID can 09/18/22 - Past Medical/Surgical History Diabetic: Yes -: Asbestosis -: HTN -: Hypothroidism -: HLD -: NIDDM -: Dementia -: Cataract surgery Bilaterally -: Choley -: Tonsillectomy -: Neck Sx with titanium plate in C-spine -: Right Knee sx -: Heel Spur removal -: Rotator Cuff repair of R shoulder Psychosocial/ Personal History: Lives at assisted - Family History Mother -: Stroke - Social History Alcohol use: No CD- Drugs: No Caffeine use: Yes Review of Systems is unable to be obtained (Dementia) Physical Examination - Physical Exam General: Alert, In no apparent distress, Oriented x1 HEENT: Atraumatic, PERRLA, Mucous membr. moist/pink, EOMI, Sclerae nonicteric Neck: Supple, 2+ carotid pulse no bruit, No LAD, Without JVD or thyroid abnormality Respiratory: Clear to auscultation bilaterally, Normal air movement Cardiovascular: Regular rate/rhythm, Normal S1 S2 Capillary refill: <2 Seconds Gastrointestinal: Normal bowel sounds, No tenderness Musculoskeletal: No tenderness Integumentary: No rashes Neurological: Normal speech, Normal strength at 5/5 x4 extr, Normal tone, Normal affect - Studies Laboratory Data (last 24 hrs) 12/31/22 12/31/22 12/31/22 15:00 15:00 15:00 WBC 17.10 H Hgb 10.1 L Hct 30.4 L Plt Count 323 PT 12.7 H INR 1.15 APTT 32.5 Sodium 133 L Potassium 4.5 BUN 30 H Creatinine 2.00 H Glucose 191 H Total Bilirubin 0.5 AST 15 ALT 18 Alkaline Phosphatase 122 H Assessment and Plan - Plan Assessment: Left intertrochanteric femur fracture ALEXIS Leukocytosis Dementia Diabetes mellitus type 5iox-nblicri-obazganpo with hyperglycemia Hypertension hypothyroidism Plan: Left intertrochanteric femur fracture N.p.o. after midnight, as needed pain medication, orthopedic surgery consult. ALEXIS Continue gentle IV fluids, nephrology consult, renal ultrasound ordered. Obtain UA. Leukocytosis Afebrile, no source of infection identified currently will obtain UA, chest x- ray. Monitor for fever. Dementia Continue home medications Diabetes mellitus type [id number]-tqvobvpux with hyperglycemia Every 6 hours Accu-Chek, mild sliding scale insulin, A1c in the morning. Hypertension hypothyroidism Continue home medications. DVT PPX: SCD Code status: Full Discharge Plan: Mcfp Plan to discharge in: Greater than 2 days - Advance Directives Does patient have a Living Will: Yes Does patient have a Durable POA for Healthcare: Yes - Code Status/Comfort Care Code Status Assessed: Yes (Full code) Critical Care: No Time Spent Managing Pts Care (In Minutes): 55
--- NOTE | 2022-12-31 19:02 | RAD REPORT ---
EXAM DESCRIPTION: RADChest Single View12/31/2022 6:33 pm CLINICAL HISTORY: fall, hip fx, leukocytosis COMPARISON: Chest Single View dated 09/15/2022; Chest Single View dated 09/07/2022; Chest Single View dated 01/25/2022; Chest Single View dated 08/30/2016 TECHNIQUE: Portable AP view of the chest. FINDINGS: The lungs are clear. Chronic peripheral interstitial changes, stable. No pneumothorax or e ffusion. The cardiomediastinal contours are unremarkable. IMPRESSION: No acute cardiopulmonary process.
[2022-12-31] MEDS ORDERED: ONDANSETRON 4 MG/2 ML VIAL IV PRN (21:19)
[2022-12-31] MEDS: INSULIN REGULAR (HUMAN) 100 UNIT/ML SQ SCH (21:19)
[2022-12-31] MEDS ORDERED: NA CHLORIDE 0.9% 1,000 ML IV SCH (21:19)
[2022-12-31] MEDS: MORPHINE 2 MG/ML SYR IV PRN (22:16)
[2023-01-01 03:33] LABS: Protime INR 1.25
[2023-01-01 03:34] LABS: Absolute Lymphocytes (CBC) 1.3 K/uL (0.7-4.9); Lymphocytes % 9.7 % (15.3-44.8); MCV 87.8 fL (80-100); MPV 7.9 fL (7.6-11.3); Platelets 316 thou/uL (152-406); RBC Red Blood Cell Count 3.19 M/uL (4.33-5.43)
[2023-01-01] MEDS: MORPHINE 2 MG/ML SYR IV PRN ×2 (03:51→21:28)
[2023-01-01 04:03] LABS: Potassium 5.3 mEq/L (3.5-5.1)
[2023-01-01 04:51] LABS: Blood Morphology Comment NOT SEEN (NOT SEEN); Platelet Estimate ADEQ
--- NOTE | 2023-01-01 07:19 | RAD REPORT ---
EXAM DESCRIPTION: US - Renal Ultrasound-Complete - 01/01/2023 2:41 am CLINICAL HISTORY: Acute renal insufficiency COMPARISON: 2017 FINDINGS: The right kidney measures 9 cm with a normal echotexture. The left kidney measures 9 cm with a normal echotexture. Hydronephrosis is not seen. No gross abnormality of bladder IMPRESSION: Unremarkable renal ultrasound.
[2023-01-01] MEDS: INSULIN REGULAR (HUMAN) 100 UNIT/ML SQ SCH ×4 (07:30→21:00)
[2023-01-01 07:55] LABS: Uric Acid 5.4 mg/dL (3.5-7.2)
[2023-01-01] MEDS: NA CHLORIDE 0.9% 1,000 ML IV SCH ×2 (10:16→21:29)
--- NOTE | 2023-01-01 11:42 | EKG ---
Test Date: 2022-12-31 Test Time: 14:58:16 Explosive Ordnance Disposal Technician: SOLANGE MEASUREMENT RESULTS: Intervals: Rate: 84 ND: 138 QRSD: 92 QT: 372 QTc: 439 [place]: P: 75 ND: 138 QRS: 48 T: -68 INTERPRETIVE STATEMENTS: Normal sinus rhythm ST & T wave abnormality, consider inferior ischemia Abnormal ECG Compared to ECG 09/30/1996 08:45:00 ST (T wave) deviation now present Possible ischemia now present Sinus bradycardia no longer present T-wave abnormality no longer present Electronically Signed On 01-01-23 11:40:15 CDT by Tk Becerra
--- NOTE | 2023-01-01 12:34 | P.CNS ---
Date of Consult: 01/01/23 Chief Complaint: Left hip fracture, ALEXIS History of Present Illness: 87-year-old male with a history of dementia hypertension hyperlipidemia-both thyroidism presented to the emergency room after having a fall transferring from a wheelchair. Patient with advanced dementia oriented x1 in the emergency room his labs were significant for a white count of 17.1 hemoglobin 10.1 and a sodium of [address] Potts discussed the case with the emergency room physician and reviewed the x-rays patient has an intertrochanteric fracture and possibly an old femoral neck fracture as well I reviewed these films with Dr. Potts prior to coming for this consultation date of injury 12/31/2022 I spoke with his grandson Russ via telephone he is rarely ambulatory and normally only does transfers but he had a rare instance of lucidness where he got up and walked to the bathroom he was walking back from the bathroom when he tripped and fell a year ago he had a left hip intertrochanteric fracture which was intramedullary enoch and at this institution he was sent to [facility] for rehab and he has never been able to return home since then, he was not able to localize his pain today and did not complain of any pain and did not appear to be aware that his hip was broken he was not in any distress Allergies Penicillins Allergy (Verified 01/25/22 21:12) Itching/Hives/Rash Home Medications: Melatonin 10 mg PO BEDTIME PRN PRN #60 tab 01/26/22 Levothyroxine [Synthroid*] 125 mcg PO [id number] 09/07/22 Amlodipine [Norvasc*] 10 mg PO DAILY tab 09/18/22 Acetaminophen [Tylenol] 2 tab PO Q8H PRN 01/01/23 Buspirone HCl [Buspar] 10 mg PO TID 01/01/23 Codeine/APAP [Tylenol W/Codeine #3 tab] 1 tab PO Q6HP PRN 01/01/23 Docusate Sodium 100 mg PO BID 01/01/23 Donepezil HCl [Aricept] 10 mg PO BEDTIME 01/01/23 Lactulose 10 gm PO Q12HP PRN 01/01/23 Loratadine [Claritin] 10 mg PO DAILY 01/01/23 Memantine HCl [Namenda] 10 mg PO BID 01/01/23 - Past Medical/Surgical History Diabetic: Yes -: Asbestosis -: HTN -: Hypothroidism -: HLD -: NIDDM -: Dementia -: Cataract surgery Bilaterally -: Choley -: Tonsillectomy -: Neck Sx with titanium plate in C-spine -: Right Knee sx -: Heel Spur removal -: Rotator Cuff repair of R shoulder Psychosocial/ Personal History: Lives at assisted - Family History Mother Medical History: Stroke - Social History Smoking Status: Unknown if ever smoked Alcohol use: No CD- Drugs: No Caffeine use: No [facility] of [facility] Review of Systems is unable to be obtained Physical Examination Temp Pulse Resp BP Pulse Ox 97.7 F 71 18 143/67 H 95 01/01/23 03:50 01/01/23 03:50 01/01/23 03:50 01/01/23 03:50 01/01/23 03:50 General: In no apparent distress, Demented HEENT: Atraumatic Musculoskeletal: Other (He did not localize pain his leg was not internally rotated) Laboratory Data (last 24 hrs) 12/31/22 12/31/22 12/31/22 15:00 15:00 15:00 WBC 17.10 H Hgb 10.1 L Hct 30.4 L Plt Count 323 PT 12.7 H INR 1.15 APTT 32.5 Sodium 133 L Potassium 4.5 BUN 30 H Creatinine 2.00 H Glucose 191 H Total Bilirubin 0.5 AST 15 ALT 18 Alkaline Phosphatase 122 H Imagings Data: RADIOLOGY SERVICES REPORT CC: NONE; Jeancarlos Prabhakar DONALD EARL / Report: [id number] Radiology Services Report Page 1 of 1 Name: AIXA MCMAHAN Acct Number: [id number] : 1935 Age: 87 Sex: M Unit Number: [id number] Ord Phys: Jeancarlos Prabhakar [address] Dr: NONE Status: REG ER ER Exam Date: 12/31/22 Reason for Exam: TRAUMA Report Status: Signed EXAM DESCRIPTION: CT - Pelvis Wo Cont - 12/31/2022 3:04 pm CLINICAL HISTORY: TRAUMA COMPARISON: Pelvis Wo Cont dated 09/07/2022; Pelvis dated 09/08/2022 TECHNIQUE: Thin cut axial CT imaging of the pelvis was performed without IV contrast. Multiplanar reformats were generated and reviewed. All CT scans are performed using dose optimization technique as appropriate and may include automated exposure control or mA/KV adjustment according to patient size. FINDINGS: Comminuted, impacted left femoral intertrochanteric fracture, new since the prior exam. Changes of partial healing, with early callus formation along the impacted internally fixated right femoral intertrochanteric fracture. Hardware in satisfactory alignment. The visualized pelvic ring appears intact. Multilevel degenerative changes of the included lower lumbar spine, with bilater al L5 pars interarticularis defects. No dilated bowel loops or bowel wall thickening. No free air, free fluid or inflammatory stranding. No hernia, mass or bulky lymphadenopathy. The urinary bladder is without significant finding. IMPRESSION: Comminuted, impacted, left femoral intertrochanteric fracture, new since the prior exam, and appears acute. Changes of partial healing of internally fixated right femoral intertrochanteric fracture. Fixation hardware is satisfactory alignment. Dictated By: Gucci Hancock MD 12/31/22 1646 Signed By: Gucci Hancock MD 12/31/22 1647 Head Operator Sulfide: BRANDAN 12/31/22 164 - Problems (1) Intertrochanteric fracture of right hip Current Visit: Yes Status: Acute Plan: I spoke with his grandson Russ via telephone we discussed that he has had a left hip intramedullary rodding previously he was sent to a assisted for rehab afterwards and has never been able to return home he is rarely ambulatory mainly only performing transfers he is in no distress at this time and does not appear to be aware that his hip is broken he does not respond to person place or time Russ will talk with his grandmother and they will make a decision as to whether to proceed with surgery, in the meantime we are pursuing cardiac clearance there is a consent on the chart if they decide to proceed we will try to get this done this afternoon so he will remain n.p.o. Qualifiers: Encounter type: initial encounter Fracture type: closed Fracture alignment: displaced Qualified Code(s): S72.141A - Displaced intertrochanteric fracture of right femur, initial encounter for closed fracture
--- NOTE | 2023-01-01 17:08 | CON ---
Date of Consultation: 01/01/2023 Reason For Consultation: Elevated BUN and creatinine. 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 The patient came to the hospital with fall, found to have hip fracture and found to have elevation in BUN and creatinine. Creatinine up to 2.2. For that reason, we have been consulted. The patient also had hyperkalemia with 5.3. Reviewing the record for the patient, there is no mention for nonsteroidal intake. No IV contrast. The patient not on any JUAN JOSE inhibitor or ARB. Past Medical History: Includes: 1. Diabetes complicated with neuropathy and nephropathy. 2. Hypertension. 3. Hyperlipidemia. 4. 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 Baseline creatinine 1.8. GFR of 36. Allergies: TO PENICILLIN. Family History: Positive for hypertension. Social History: Denied smoking. Denied drinking. Denied drugs abuse. Past Surgical History: Includes: 1. Cataract surgery. 2. Cholecystectomy. 3. Tonsillectomy. 4. Neck surgery. 5. Rotator cuff surgery. Review of Systems: The patient confused, poor historian, could not obtain. Physical Examination: Vital Signs: When I saw the patient; blood pressure 143/67, pulse of 71, afebrile. Chest: Clear to auscultation. Heart: S1, S2 regular. Abdomen: Soft nontender extremity no edema. Neurologic: Alert. No focality. Laboratory Data: Sodium 136, potassium 5.3, bicarb 25, BUN 34, creatinine 2.2, calcium 8.7, uric acid 5.4. WBC 13.4, hemoglobin 9.3. Current Medications: The patient on include. 1. Insulin. 2. Morphine. Assessment And Plan: Acute kidney injury on advanced chronic kidney disease, small size kidney /, nonobstructing, obstructive uropathy has been ruled out mostly secondary to prerenal, secondary to dehydration to rule out any rhabdomyolysis secondary to the fall. I am going to go ahead and increase IV fluid to 100 per hour and we will monitor the patient. 1. I will send for a CK and uric acid. 2. Obstructive uropathy has been ruled out. 3. Hypertension, controlled, optimal continue current treatment. 4. Hip fracture and fall as by primary. 5. Hyperkalemia, marginal. There is no need for treatment. We will start IV hydration. 6. Hyponatremia. 7. Depletional. We will continue with IV fluid. Time spent examining the patient [id number], reviewing data, lab and radiology, placing order, discussing the case with the patient, discussing the case with the steam box hand including the hospitalist and nursing staff more than 65 minutes. VANCE Voice ID: [id number] Report ID: [id number] IVORY
--- NOTE | 2023-01-01 17:14 | P.PN ---
Subjective Date of Service: 01/01/23 Chief Complaint: Left hip fracture, ALEXIS No acute events since admission. He reports left hip pain. He denies any fevers, chills, chest pain, or shortness of breath. Review of Systems 10-point ROS is otherwise unremarkable Musculoskeletal: Leg Pain (left hip pain) Physical Examination - Vital Signs Temperature: 97.7 F Blood Pressure: 143/67 Pulse: 71 Respirations: 18 Pulse Ox (%): 95 - Physical Exam General: Alert, In no apparent distress, Oriented x1 HEENT: Atraumatic, Mucous membr. moist/pink, Sclerae nonicteric Neck: JVD not distended Respiratory: Clear to auscultation bilaterally, Normal air movement Cardiovascular: No edema, Regular rate/rhythm, Normal S1 S2, No gallops, No rubs, No murmurs Gastrointestinal: Normal bowel sounds, Soft and benign, Non-distended, No tenderness, No rebound, No guarding Musculoskeletal: No clubbing Integumentary: No rashes Neurological: Normal speech, Normal affect Assessment And Plan - Plan # Traumatic Mechanical Ground-Level Fall complicated by a Left Intertrochanteric Femur Fracture # SIRS Criteria (Tachycardia, Leukocytosis) suspect due to above - no evidence of infection - CT pelvis = "comminuted, impacted, left femoral intertrochanteric fracture, new since the prior exam, and appears acute. Changes of partial healing of internally fixated right femoral intertrochanteric fracture. 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
[2023-01-02 03:52] LABS: Absolute Lymphocytes (CBC) 1.7 K/uL (0.7-4.9); Hematocrit 23.2 % (39.6-49.0); Lymphocytes % 17.5 % (15.3-44.8); MCV 88.4 fL (80-100); MPV 7.7 fL (7.6-11.3); Platelets 223 thou/uL (152-406); RBC Red Blood Cell Count 2.62 M/uL (4.33-5.43)
[2023-01-02 04:03] LABS: Potassium 4.6 mEq/L (3.5-5.1)
[2023-01-02] MEDS: NA CHLORIDE 0.9% 1,000 ML IV SCH ×3 (05:33→23:52)
[2023-01-02] MEDS: INSULIN REGULAR (HUMAN) 100 UNIT/ML SQ SCH ×4 (07:30→21:07)
[2023-01-02] MEDS ORDERED: propofoL 200 MG/20 ML VIAL IV ONE (10:12)
[2023-01-02] MEDS ORDERED: FENTANYL CITR 100 MCG/2 ML ONE (10:13)
[2023-01-02] MEDS ORDERED: ONDANSETRON 4 MG/2 ML VIAL ONE (10:13)
[2023-01-02] MEDS ORDERED: LIDOCAINE 2% MPF 5 ML VIAL ONE (10:13)
[2023-01-02] MEDS ORDERED: ROCURONIUM 50 MG/5 ML VIAL IV ONE (10:25)
[2023-01-02] MEDS ORDERED: TRANEXAMIC ACID 1,000 MG/10 ML VIAL IV ONE (11:06)
[2023-01-02] MEDS ORDERED: CEFAZOLIN SODIUM 2 GM/VIAL ONE (11:06)
[2023-01-02] MEDS ORDERED: SUGAMMADEX SODIUM 200 MG/2 ML VIAL IV ONE (11:06)
[2023-01-02] MEDS ORDERED: EPHEDRINE SULF 50 MG/ML VIAL ONE (11:26)
[2023-01-02] MEDS ORDERED: Phenylephrine HCl 10 MG/ML 1 ML VIAL ONE (11:26)
[2023-01-02] MEDS ORDERED: dexAMETHasone 4 MG/ML VIAL ONE (11:56)
[2023-01-02] MEDS ORDERED: KETOROLAC 30 MG/ML INJ ONE (11:56)
--- NOTE | 2023-01-02 12:49 | RAD REPORT ---
EXAM DESCRIPTION: RAD - Pelvis - 01/02/2023 12:43 pm CLINICAL HISTORY: s/p left hip rodding Hip pain COMPARISON: <Comparisons> FINDINGS: Proximal left femoral enoch has been placed. Alignment is as expected for the immediate post surgical appearance. Left-sided skin dannie noted. Prior proximal right femoral hardware noted witho ut complication evident.
[2023-01-02] MEDS ORDERED: NACHLORIDE 0.45% 1,000 ML IV SCH (13:00)
[2023-01-02] MEDS: FENTANYL CITR 100 MCG/2 ML ONE ×2 (13:00→13:05)
--- NOTE | 2023-01-02 13:46 | RAD REPORT ---
EXAM DESCRIPTION: RAD - Hip Left 2 View - 01/02/2023 12:22 pm CLINICAL HISTORY: LT HIP RODDING COMPARISON: None available. FINDINGS: Four Images were sent to PACS, documenting hardware positions during left hip intramedulla ry rodding procedure. No radiologist was available for the procedure, nor will any image interpretati on he provided. Please refer to the procedural report for additional details. Fluoroscopy time: 2.4 Minutes. IMPRESSION: Documentation of fluoroscopy utilization as above.
[2023-01-02] MEDS: CEFAZOLIN 1 GM in NA CHLORIDE 0.9% 50 ML IVPB SCH ×2 (16:04→23:47)
--- NOTE | 2023-01-02 17:11 | P.PN ---
Subjective Date of Service: 01/02/23 Chief Complaint: Left hip fracture, ALEXIS He underwent left hip intertrochanteric rodding today. He tolerated the procedure well. His pain is well-controlled He is resting comfortably and denies any symptoms at this time. No fevers, chills, chest pain, or shortness of breath. Review of Systems 10-point ROS is otherwise unremarkable Musculoskeletal: Leg Pain (minimal left hip) Physical Examination - Vital Signs Temperature: 97.1 F Blood Pressure: 144/63 Pulse: 65 Respirations: 16 Pulse Ox (%): 97 Assessment And Plan - Plan - Physical Exam General: Alert, In no apparent distress, Oriented x1 HEENT: Atraumatic, Mucous membr. moist/pink, Sclerae nonicteric Respiratory: Clear to auscultation bilaterally, Normal air movement Cardiovascular: No edema, Regular rate/rhythm, No murmurs Gastrointestinal: Normal bowel sounds, Soft, Non-distended, No tenderness Integumentary: No rashes Neurological: Normal speech, Normal affect # Traumatic Mechanical Ground-Level Fall complicated by a Left Intertrochanteric Femur Fracture # SIRS Criteria (Tachycardia, Leukocytosis) suspect due to above - no evidence of infection - CT pelvis = "comminuted, impacted, left femoral intertrochanteric fracture, new since the prior exam, and appears acute. Changes of partial healing of internally fixated right femoral intertrochanteric fracture. 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
--- NOTE | 2023-01-02 20:33 | CON ---
Date of Consultation: 01/02/2023 Reason For Consultation: Cardiac preop risk assessment for hip fracture. History Of Present Illness: 87-year-old male with dementia, hypertension, dyslipidemia, hypothyroidi sm, presented to the emergency room after a fall, sustained left hip fracture. I was asked to evalua te the cardiac risk prior to the surgery. Patient denies having any chest pain. No shortness of azam ath. No active chest pain or recent cardiac intervention. Past Medical History: As outlined above in the HPI. Medications: Refer to reconciliation sheet for detailed list. Allergies: PENICILLIN. Family History: No premature coronary artery disease or cancer. Social History: Does not smoke or drink. Does not use any drugs. Review of Systems: All systems reviewed and they were negative except what mentioned in HPI. Physical Examination: Vital Signs: Reviewed. Head and Neck: Pupils are equal, reactive to light. Intact eye movements. No JVD. No cervical lym phadenopathy. Neck is supple. Thyroid is not enlarged. Lungs: Clear to auscultation bilaterally. No rhonchi, wheezing, or crackles. No accessory muscle u se. Heart: Regular rate and rhythm. No extra sounds. Abdomen: Soft, nontender. Bowel sounds positive. No organomegaly. No masses or hernia. No rigidi ty or rebound. Extremities: No edema, clubbing, or cyanosis. Intact pulses. Skin: No rash. No nodule. Neurologic: Alert, awake, oriented x3. No acute focal deficits appreciated. Investigations: BUN 35, creatinine is 1.7 down from 2.2, and hemoglobin is 7.8. Assessment And Recommendations: 1.Cardiac preoperative risk assessment. There is no known cardiac history and patient is asymptomat ic and this is an emergent surgery for the fracture. I recommend to proceed without any further card iac workup at this point, and we will monitor the patient closely postoperatively. 2.Acute renal failure, improving. Gentle hydration is recommended. 3.Hypertension. Blood pressure is controlled. Thank you for the consult. /BRANDAN Voice ID: [id number] Report ID: [id number]
--- NOTE | 2023-01-02 20:42 | OP ---
Surgeon: Cristian Potts MD Preoperative Diagnosis: Left intertrochanteric hip fracture. Postoperative Diagnosis: Left intertrochanteric hip fracture. Procedure Performed: Left intertrochanteric hip fracture rodding. Electrical Panel Builder: None. Anesthesia: General. Operative Report In Detail: The patient was taken to operative suite, placed in supine position, ind uced anesthesia. Left hip was prepped and draped in a sterile fashion addressed with a 12 5 x 11 mm diameter Affixus nail. A single stage reaming was performed. A 90 lag screw placed in the subchondral bone, verified on biplanar radiography. 36 distal interlock screw placed. The patient tolerated the procedure well. He is being reversed from anesthesia. At the time of this dictation, should be in the recovery room shortly. OSCAR Voice ID: [id number] Report ID: [id number]
[2023-01-02] MEDS: ENSURE SURGERY 237 ML CAN PO SCH (21:00)
[2023-01-03 03:18] LABS: UR PROTEIN 62.4 mg/dL (<11.9); Urine Protein/Creatinine Ratio 0.6 ratio (<0.15)
[2023-01-03 03:22] LABS: Hematocrit 22.3 % (39.6-49.0)
[2023-01-03 03:36] LABS: Potassium 4.7 mEq/L (3.5-5.1)
[2023-01-03 03:50] LABS: Renal Epithelial <5 /HPF (None Seen); Specific Gravity 1.022 (1.005-1.030); Urine Bacteria None Seen /HPF (<20); Urine Bilirubin NEGATIVE (Negative); Urine Blood Negative (Negative); Urine Clarity Turbid (Clear); Urine Color Yellow (Yellow); Urine Glucose NEGATIVE (Negative); Urine Mucus Slight /HPF (None Seen); Urine Protein TRACE (Negative); Urine RBC None Seen /HPF (None Seen); Urine Urobilinogen Normal (Normal)
[2023-01-03] MEDS: INSULIN REGULAR (HUMAN) 100 UNIT/ML SQ SCH ×4 (07:30→21:00)
[2023-01-03] MEDS: ENSURE SURGERY 237 ML CAN PO SCH ×2 (08:28→21:00)
[2023-01-03] MEDS: ENOXAPARIN 30 MG/0.3 ML SQ SCH (08:28)
[2023-01-03] MEDS: MORPHINE 2 MG/ML SYR IV PRN (08:31)
[2023-01-03] MEDS ORDERED: HYDROCODONE/APAP 5/325 MG TAB PO PRN (08:40)
[2023-01-03] MEDS: NA CHLORIDE 0.9% 1,000 ML IV SCH (10:01)
--- NOTE | 2023-01-03 10:35 | P.PN ---
Subjective Date of Service: 01/03/23 Chief Complaint: Left hip fracture, ALEXIS POD #1 from left hip intertrochanteric rodding. He states that he has some soreness in his left hip, but that the pain is well-controlled. He is eager to work with PT today. No fevers, chills, chest pain, or shortness of breath. Review of Systems 10-point ROS is otherwise unremarkable Musculoskeletal: Leg Pain (left hip) Physical Examination - Vital Signs Temperature: 98.1 F Blood Pressure: 133/56 Pulse: 56 Respirations: 16 Pulse Ox (%): 98 Assessment And Plan - Plan - Physical Exam General: Alert, In no apparent distress, Oriented x2 to person and place HEENT: Atraumatic, Mucous membr. moist/pink, Sclerae nonicteric Respiratory: Clear to auscultation bilaterally, Normal air movement Cardiovascular: No edema, Regular rate/rhythm, No murmurs Gastrointestinal: Normal bowel sounds, Soft, Non-distended, No tenderness Integumentary: No rashes Neurological: Normal speech, Normal affect # Traumatic Mechanical Ground-Level Fall complicated by a Left Intertrochanteric Femur Fracture # SIRS Criteria (Tachycardia, Leukocytosis) suspect due to above - no evidence of infection - CT pelvis = "comminuted, impacted, left femoral intertrochanteric fracture, new since the prior exam, and appears acute. Changes of partial healing of internally fixated right femoral intertrochanteric fracture. 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
--- NOTE | 2023-01-03 12:44 | P.PN ---
Subjective Date of Service: 01/03/23 Chief Complaint: Left hip fracture, ALEXIS Subjective: No new changes (Follow-up postop day 1 status post left hip intramedullary rodding) Review of Systems is unable to be obtained Physical Examination - Vital Signs Temperature: 98.1 F Blood Pressure: 133/56 Pulse: 56 Respirations: 16 Pulse Ox (%): 98 - Physical Exam Musculoskeletal: Other (Patient was sitting up in bed in no apparent distress dressings clean dry and intact on the left hip) Assessment And Plan - Current Problems (Diagnosis) (1) Intertrochanteric fracture of right hip Current Visit: Yes Status: Acute Plan: I status post left hip intramedullary rodding postop day 1 patient is more lucid than he was preop but still demented he should not be putting weight on his left leg touchdown weightbearing only for 6 weeks from the date of surgery he can return to the nursing facility that he came from as soon as he is safe and stable his hemoglobin is dropping Hemoglobin started at 10.1 on 12/31/2022 and is 7.6 today 01/03/2023, follow-up in the office 2 weeks postop with x-rays from the nursing facility that he is staying at. Dressing changed to a fresh Aquacel dressing prior to discharge Qualifiers: Encounter type: initial encounter Fracture type: closed Fracture alignment: displaced Qualified Code(s): S72.141A - Displaced intertrochanteric fracture of right femur, initial encounter for closed fracture Discharge Plan: Care Home Plan to discharge in: 48 Hours (Once hemodynamically stable)
[2023-01-03] MEDS ORDERED: NA CHLORIDE 0.9% 1,000 ML IV SCH (13:30)
--- NOTE | 2023-01-03 17:34 | PN ---
Date of Progress Note: 01/03/2023 Subjective: The patient was admitted with hip fracture, acute kidney injury secondary to prerenal. Patient did undergo hip surgery yesterday, tolerated well. Physical Examination: Vital Signs: Blood pressure 133/56, pulse of 56, afebrile. Chest: Clear to auscultation. Heart: S1, S2. Systolic murmur. Abdomen: Soft, nontender. Extremities: Dressing on the surgery site. No edema. Neurologic: Alert. No focality. Pleasantly confused. Laboratory Data: Hemoglobin 7.6, dropping from 10.1. Sodium 138, potassium 4.7, bicarb 20, BUN 40, creatinine 1.7 and trending down. GFR of 38. Calcium 7.6. Current Medications: The patient is on include: 1.Lovenox. 2.Zofran. 3.Insulin. 4.Morphine. Assessment And Plan: 1.Acute kidney injury secondary to prerenal, recovered, resolved. 2.Hypertension, controlled, optimal. I am going to continue current treatment. 3.Hip fracture as by primary. 4.Obstructive uropathy has been ruled out. 5.Hyponatremia secondary to depletional, resolved. I going to decrease IV fluid. 6.Hypokalemia, status post supplement, resolved. 7.Hyperkalemia secondary to renal failure, resolved. Time spent examining the patient [id number], reviewing data, lab and radiology, placing order, disc ussing the case with the patient discussing the case with the preanalytics team lead including hospitalist and nursing staff more than 35 minutes . VANCE Voice ID: [id number] Report ID: [id number]
[2023-01-03 22:37] VITALS: O2SAT 98; BMI 19.6
[2023-01-04] MEDS: MORPHINE 2 MG/ML SYR IV PRN ×2 (04:25→15:03)
[2023-01-04] MEDS: INSULIN REGULAR (HUMAN) 100 UNIT/ML SQ SCH ×3 (07:30→16:30)
[2023-01-04 07:36] LABS: Potassium 4.5 mEq/L (3.5-5.1)
[2023-01-04] MEDS: ENOXAPARIN 30 MG/0.3 ML SQ SCH (08:39)
[2023-01-04] MEDS: ENSURE SURGERY 237 ML CAN PO SCH (08:40)
--- NOTE | 2023-01-04 14:10 | P.PN ---
Subjective Date of Service: 01/04/23 Chief Complaint: Left hip fracture, ALEXIS Subjective: No new changes Review of Systems is unable to be obtained Physical Examination - Vital Signs Temperature: 97.0 F Blood Pressure: 150/56 Pulse: 53 Respirations: 16 Pulse Ox (%): 96 - Physical Exam Musculoskeletal: Other (Dressings clean dry and intact) Assessment And Plan - Current Problems (Diagnosis) (1) Intertrochanteric fracture of right hip Current Visit: Yes Status: Acute Plan: I status post left hip intramedullary rodding postop day 1 patient is more lucid than he was preop but still demented he should not be putting weight on his left leg touchdown weightbearing only for 6 weeks from the date of surgery he can return to the nursing facility that he came from as soon as he is safe and stable his hemoglobin is dropping Hemoglobin started at 10.1 on 12/31/2022 and is 7.2 today 01/04/2023 to be managed by hospitalist staff, follow-up in the office 2 weeks postop with x-rays from the nursing facility that he is staying at. Dressing changed to a fresh Aquacel dressing prior to discharge Qualifiers: Encounter type: initial encounter Fracture type: closed Fracture alignment: displaced Qualified Code(s): S72.141A - Displaced intertrochanteric fracture of right femur, initial encounter for closed fracture
[2023-01-04 14:49] LABS: Hematocrit 26.4 % (39.6-49.0)
--- NOTE | 2023-01-04 15:08 | P.PN ---
Subjective Date of Service: 01/04/23 Chief Complaint: Left hip fracture, ALEXIS Subjective: No new changes Physical Examination - Vital Signs Temperature: 97.0 F Blood Pressure: 150/56 Pulse: 53 Respirations: 16 Pulse Ox (%): 96 - Physical Exam General: Other (appears as his stated age) HEENT: Atraumatic, Normocephalic Neck: Supple, JVD not distended Respiratory: Other (symmetric chest expansion) Cardiovascular: No rubs, No murmurs Gastrointestinal: Soft and benign, No guarding Musculoskeletal: No clubbing Integumentary: No warmth Neurological: Normal tone Urinary: Other (no bladder distention) External genitalia: Deferred Rectal: Deferred Assessment And Plan - Plan 1. Acute kidney injury secondary to prerenal. SCr improved to 1.2. Encourage liberal by mouth fluid intake. 2. Hypertension, controlled. continue current medication regimen. 3. Left intertrochanteric femoral fracture. Per other services. 4. Anemia. Monitor CBC. 5. Hyponatremia. Improved. Encourage by mouth solid food intake tid. 6. Hyperkalemia. Improved. Low K diet. 7. Dispo. Ok to dc to snf today.
--- NOTE | 2023-01-04 15:10 | P.DS ---
Admission Date: 12/31/22 Discharge Date: 01/04/23 Disposition: TRANSFER TO [facility] Comment: [facility] Discharge Condition: GOOD Reason for Admission: Left hip fracture, ALEXIS Consultations: 1. Orthopedic Surgery 2. Cardiology 3. 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 Wayne Arredondo is a pleasant 87 year old male with a past medical history significant for advanced dementia, type II diabetes mellitus, hypertension, hypothyroidism, and hyperlipidemia who was admitted to the [facility] on 12/31/2022 for a left femur fracture. He was admitted to the Medicine service. Upon further evaluation, his CT pelvis revealed, "comminuted, impacted, left femoral intertrochanteric fracture, new since the prior exam, and appears acute. Changes of partial healing of internally fixated right femoral intertrochanteric fracture. Fixation hardware is satisfactory alignment." Orthopedic Surgery was consulted and he was evaluated by Dr. Potts. On 01/02/2023, he underwent left hip intertrochanteric rodding. He tolerated the procedure well. Physical therapy was consulted, and it was recommended that he be discharged with continued PT services. With the assistance of case management, he was accepted back to [facility] for continued physical therapy. Of note, he was also found to have an acute kidney injury, which improved with IV fluids. On 01/04/2023, he was seen on rounds and deemed medically stable for discharge. He was discharged with instructions to schedule follow-up appointments with his PCP, with Orthopedic Surgery (Dr. Potts), and with Nephrology (Dr. Lyons). He was given the opportunity to ask questions and reported no further questions. Furthermore, all questions were answered to the best of my ability. A copy of this discharge summary will be sent to the above providers to facilitate continuity of care. Today, I personally spent 20 minutes on his case, of which greater than 50% of the time was spent in patient education, counseling, and coordination of care as described above. - Physical Exam General: Alert, In no apparent distress, Oriented x1-2 HEENT: Atraumatic, Mucous membr. moist/pink, Sclerae nonicteric Respiratory: Clear to auscultation bilaterally, Normal air movement Cardiovascular: No edema, Regular rate/rhythm, No murmurs Gastrointestinal: Normal bowel sounds, Soft, Non-distended, No tenderness Integumentary: No rashes Neurological: Normal speech, Normal affect Vital Signs/Physical Exam: Temp Pulse Resp BP Pulse Ox 97.0 F 53 16 150/56 H 96 01/04/23 15:08 01/04/23 15:08 01/04/23 15:08 01/04/23 15:08 01/04/23 15:08 Laboratory Data at Discharge: WBC 9.60 thou/uL (4.3-10.9) 01/02/23 03:16 Hgb 8.6 g/dL (13.6-17.9) L D 01/04/23 14:34 Hct 26.4 % (39.6-49.0) L 01/04/23 14:34 Plt Count 223 thou/uL (152-406) D 01/02/23 03:16 PT 13.7 SECONDS (9.5-12.5) H 01/01/23 01:58 INR 1.25 01/01/23 01:58 APTT 32.5 SECONDS (24.3-36.9) 12/31/22 15:00 Sodium 136 mEq/L (136-145) 01/04/23 06:46 Potassium 4.5 mEq/L (3.5-5.1) 01/04/23 06:46 BUN 34 mg/dL (7-18) H 01/04/23 06:46 Creatinine 1.18 mg/dL (0.70-1.30) 01/04/23 06:46 Glucose 87 mg/dL (74-106) 01/04/23 06:46 Uric Acid 5.4 mg/dL (3.5-7.2) 01/01/23 01:58 Total Bilirubin 0.5 mg/dL (0.2-1.0) 12/31/22 15:00 AST 15 U/L (15-37) 12/31/22 15:00 ALT 18 U/L (16-61) 12/31/22 15:00 Alkaline Phosphatase 122 U/L (45-117) H 12/31/22 15:00 Home Medications: Melatonin 10 mg PO BEDTIME PRN PRN #60 tab 01/26/22 Levothyroxine [Synthroid*] 125 mcg PO [id number] 09/07/22 Amlodipine [Norvasc*] 10 mg PO DAILY tab 09/18/22 Acetaminophen [Tylenol] 2 tab PO Q8H PRN 01/01/23 Buspirone HCl [Buspar] 10 mg PO TID 01/01/23 Codeine/APAP [Tylenol #3*] 1 tab PO Q6HP PRN 01/01/23 Docusate Sodium 100 mg PO BID 01/01/23 Donepezil HCl [Aricept] 10 mg PO BEDTIME 01/01/23 Lactulose 10 gm PO Q12HP PRN 01/01/23 Loratadine [Claritin*] 10 mg PO DAILY 01/01/23 Memantine HCl [Namenda] 10 mg PO BID 01/01/23 Physician Discharge Instructions: 1. Please call and schedule a follow-up appointment with your PCP in 3-5 days - Your bloodwork showed anemia. Please discuss with your PCP for further evaluation. 2. Please call and schedule a follow-up appointment with Orthopedic Surgery (Dr. Potts) in 5-7 days 3. Please call and schedule a follow-up appointment with Nephrology (Dr. Lyons) in 5-7 days Followup: Gladys Lyons MD [ACTIVE - CAN ADMIT] - Cristian Potts MD [ACTIVE - CAN ADMIT] - NONE,NONE [Primary Care Provider] - Time spent managing pt's care (in minutes): 20
[2023-01-04 15:50] LABS: SARS-CoV-2 Antigen Rapid Res Negative (Negative)
[2023-01-05 07:21] VITALS: BP 150/56; TEMP 97
[2023-01-05] MEDS ORDERED: ENOXAPARIN 40 MG/0.4 ML SQ SCH (09:00)
== END 2023-01-04 17:48 | DRG 481 ==
LOC: ER 14:37 → ERHOLD 18:18 → 2ND 20:36
PROVIDERS: ADMIT Internal Medicine; ATTEND Internal Medicine
PROC: 0QS734Z Reposition Left Upper Femur with Internal Fixation Device, Percutaneous Approach (ICD-10-PCS; principal; 2023-01-02 10:00)
DX: S72.142A Displaced intertrochanteric fracture of left femur, initial encounter for closed fracture (principal); E87.1 Hypo-osmolality and hyponatremia; N17.9 Acute kidney failure, unspecified; R65.10 Systemic inflammatory response syndrome (SIRS) of non-infectious origin without acute organ dysfunction; E78.5 Hyperlipidemia, unspecified; E86.0 Dehydration; E87.5 Hyperkalemia; I12.9 Hypertensive chronic kidney disease with stage 1 through stage 4 chronic kidney disease, or unspecified chronic kidney disease; N18.32 Chronic kidney disease, stage 3b; E11.22 Type 2 diabetes mellitus with diabetic chronic kidney disease; E11.40 Type 2 diabetes mellitus with diabetic neuropathy, unspecified; E11.65 Type 2 diabetes mellitus with hyperglycemia; D63.1 Anemia in chronic kidney disease; E03.9 Hypothyroidism, unspecified; E87.6 Hypokalemia; G30.9 Alzheimer's disease, unspecified; F02.80 Dementia in other diseases classified elsewhere, unspecified severity, without behavioral disturbance, psychotic disturbance, mood disturbance, and anxiety; Z88.0 Allergy status to penicillin; Z90.49 Acquired absence of other specified parts of digestive tract; Z79.890 Hormone replacement therapy; Z79.899 Other long term (current) drug therapy; Z20.822 Contact with and (suspected) exposure to COVID-19; W18.39XA Other fall on same level, initial encounter; Y92.9 Unspecified place or not applicable; Y93.89 Activity, other specified; Y99.9 Unspecified external cause status
CPT/HCPCS: 36415; 71045; 72170; 72192; 76770; 80048; 80053; 81001; 82550; 82570; 82947; 83036; 83970; 84156; 84550; 85014; 85018; 85025; 85610; 85730; 87811; 93005; 96374; 97110; 97116; 97163; 97530; 99285; J0690; J1100; J1650; J2001; J2270; J2371; J2405; J2704; J3010; J7030; J7040